=== PATIENT | female | born 1950 | race Caucasian/White ===

== ENCOUNTER 2020-09-08 10:01 | Outpatient (REF) | payer MEDICARE, MEDICAID, SELFPAY | END 2020-09-08 10:02 | disposition home or self-care (01) | LOC: HO.LAB 10:01 | PROVIDERS: Visit Provider Nurse Practitioner Family | DX: R19.7 Diarrhea, unspecified (principal); Z20.822 Contact with and (suspected) exposure to COVID-19 | CPT/HCPCS: 36415; U0003 ==

== ENCOUNTER 2020-10-20 09:06 | Outpatient (REF) | payer MEDICARE, MEDICAID, SELFPAY | END 2020-10-20 09:07 | disposition home or self-care (01) | LOC: HO.HMGCLDS 09:06 | PROVIDERS: PCP Internal Medicine; Visit Provider Internal Medicine | DX: Z20.822 Contact with and (suspected) exposure to COVID-19 (principal) | CPT/HCPCS: 36415; C9803; U0003; U0005 ==

== ENCOUNTER 2020-11-18 07:05 | Outpatient (REF) | payer MEDICARE, MEDICAID, SELFPAY ==
[2020-11-18 11:21] LABS: Hemoglobin 12.2 g/dl (12.0-16.0); Mean Corpuscular HGB Conc 31.3 g/dl (31.0-35.0); Mean Corpuscular Hemoglobin 28.8 pg (27.0-33.0); Mean Corpuscular Volume 92.2 fL (80-98); Mean Platelet Volume 10.3 fL (9.4-12.3); Platelet Count 341 X10*3/uL (160-400); Red Blood Count 4.23 X10*6/uL (4.20-5.50); Red Cell Distribution Width 14.9 % (11.0-16.0); White Blood Count 5.6 X10*3/uL (4.8-10.8)
[2020-11-18 11:41] LABS: Estimated Average Glucose 111 mg/dL; Hemoglobin A1c % 5.5 %
[2020-11-18 12:04] LABS: Alanine Aminotransferase 13 U/L (0-31); Albumin Level 4.5 g/dL (3.5-5.0); Alkaline Phosphatase 57 U/L (39-117); Anion Gap 13 (12-20); Aspartate Amino Transferase 19 U/L (5-31); Bilirubin Total 0.5 mg/dL (0.0-1.0); Blood Urea Nitrogen 16 mg/dL (9-16); Calcium 9.3 mg/dL (8.4-10.2); Carbon Dioxide 29 mmol/L (22-29); Chloride 101 mmol/L (96-108); Cholesterol 190 mg/dL; Estimated Glomerular Filt Rate > 60; Glucose Fasting 104 mg/dL (60-99); HDL Cholesterol 57 mg/dL; LDL Cholesterol Calculated 96 mg/dl; Potassium 4.3 mmol/L (3.3-5.1); Sodium 139 mmol/L (135-145); Total Protein 7.6 g/dL (6.5-8.0); Triglycerides 186 mg/dL
[2020-11-18 12:05] LABS: TSH reflex Free T4 2.23 uIU/mL (0.32-4.0)
[2020-11-18 12:19] LABS: Creatinine Urine 19.27 mg/dL; Microalbum/Creatinine Ratio Ur 51.8 ug/mg cr
[2020-11-18 12:23] LABS: Phenytoin Dilantin 16.9 ug/mL (10.0-20.0)
== END 2020-11-18 07:06 | disposition home or self-care (01) ==
LOC: HO.HMGCLDS 07:05
PROVIDERS: PCP Internal Medicine; Visit Provider Internal Medicine
DX: E11.9 Type 2 diabetes mellitus without complications (principal); E78.5 Hyperlipidemia, unspecified; F32.9 Major depressive disorder, single episode, unspecified; I10 Essential (primary) hypertension
CPT/HCPCS: 36415; 80053; 80061; 80185; 82043; 83036; 84443; 85027

== ENCOUNTER 2020-11-20 16:24 | Emergency (ER) | payer MEDICARE, MEDICAID, SELFPAY ==
--- NOTE | ~2020-11-20 | CT_ITS ---
EXAMINATION: CT HEAD WITHOUT CONTRAST CT CERVICAL SPINE WITHOUT CONTRAST CLINICAL INFORMATION: Fall COMPARISON: 05/05/2020 redemonstrated compatible with chronic white matter small vessel ischemic disease. TECHNIQUE: Multidetector CT imaging of the head and cervical spine was performed without the use of intravenous contrast. Multiplanar reformats are reviewed. This CT examination was performed using dose optimization techniques as appropriate, variously including the following: *Automated exposure control *Adjustment of mA and/or kV according to patient size (this includes techniques or standardized protocols for targeted exams where dose is matched to indication/reason for exam; i.e. extremities or head) *Use of iterative reconstruction technique DLP: 2064 mGy-cm. FINDINGS: There is no evidence of acute intracranial hemorrhage or territorial infarction. No abnormal mass effect or midline shift is seen. Orte[place] to white matter differentiation is well preserved. No extra-axial fluid collections are identified. The ventricles are normal in size. Patchy subcortical and periventricular white matter low-attenuation changes The osseous structures and soft tissues are normal. The mastoid air cells and visualized portions of the paranasal sinuses are well-aerated. Atlantooccipital alignment is maintained. The vertebral bodies and posterior elements align normally. No acute fracture or subluxation. Vertebral body heights are preserved. Bulky bridging osteophytes present throughout the cervical spine anteriorly from C3 inferiorly. There is ossification of the posterior longitudinal ligament versus bridging osteophytes posteriorly at C5-C6 and T1-T2. 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 The paraspinal soft tissues are unremarkable. The imaged lung apices are clear CT/CT cervical spine wo con IMPRESSION: No acute intracranial pathology. No cervical spine fracture or malalignment.
--- NOTE | ~2020-11-20 | CT_ITS ---
EXAMINATION: CT THORACIC SPINE WITHOUT CONTRAST CT LUMBAR SPINE WITHOUT CONTRAST CLINICAL INFORMATION: Pain following a fall. COMPARISON: CT abdomen/pelvis dated 05/14/2019. TECHNIQUE: Contiguous axial CT images of the thoracic spine were obtained without contrast. Contiguous axial CT images of the lumbar spine were obtained without contrast. Sagittal and coronal reformats were provided and reviewed. This CT examination was performed using dose optimization techniques as appropriate, variously including the following: *Automated exposure control. *Adjustment of mA and/or kV according to patient size (this includes techniques or standardized protocols for targeted exams where dose is matched to indication/reason for exam; i.e. extremities or head). *Use of iterative reconstruction technique. TOTAL DLP: 2064 mGy-cm FINDINGS: THORACIC SPINE: No acute fracture or subluxation. The normal thoracic kyphosis is maintained. No loss of vertebral body height. Mild multilevel loss of intervertebral disc height. Diffuse anterior bridging endplate osteophytes throughout the thoracic spine. Findings can be seen in the setting of diffuse idiopathic skeletal hyperostosis. No concerning lytic or blastic osseous lesion. No significant central canal or neural foraminal stenosis. Within the left upper lobe, there is a noncalcified 0.3 cm ovoid pulmonary nodule. Otherwise, the visualized lungs are clear. Partially visualized left upper pole renal stones. Status post cholecystectomy. No abnormal soft tissue mass or fluid collection. LUMBAR SPINE: No acute fracture or subluxation. No loss of vertebral body height. No significant loss of intervertebral disc height. Multilevel endplate osteophytes with bilateral facet arthropathy, similar when compared to the prior CT abdomen/pelvis. No concerning lytic or blastic osseous lesion. Calcification within the L5-S1 intervertebral disc. Multiple bilateral renal stones measuring up to 0.5 cm within the posterior pole of the right kidney. Atherosclerotic calcifications. Prominently distended urinary bladder. Small posterior central disc protrusion at L4-L5 without significant central canal or neural foraminal stenosis. Small disc osteophyte complex at L5-S1 without significant central canal or neural foraminal stenosis. CT/CT thoracic spine wo con IMPRESSION: THORACIC SPINE: No acute fracture or subluxation. Mild multilevel degenerative disc disease with diffuse bridging endplate osteophytes, which can be seen in the setting of diffuse idiopathic skeletal hyperostosis. Left upper lobe 0.3 cm ovoid, benign-appearing pulmonary nodule. No routine follow up recommended. LUMBAR SPINE: No acute fracture or subluxation. Minimal multilevel degenerative disc disease and bilateral facet arthropathy.
[2020-11-20 16:56] VITALS: BP 156/82; PULSE 76; RESP 20; TEMP 36.8; O2SAT 95; BMI 26.4
--- NOTE | 2020-11-20 17:18 | ECG_ITS ---
Test Reason : FALL Blood Pressure : / mmHG Vent. Rate : 064 BPM Atrial Rate : 064 BPM P-R Int : 234 ms QRS Dur : 094 ms QT Int : 416 ms P-R-T Axes : 037 -32 053 degrees QTc Int : 429 ms Sinus rhythm with 1st degree A-V block Left axis deviation Cannot rule out Anterior infarct (cited on or before 26-MAR-2020) Abnormal ECG When compared with ECG of 05-MAY-2020 15:00, No significant change was found Referred By: Aidan Dillon Electronically Signed By:LYNN OSEGUERA MD
[2020-11-20] MEDS: 0.9 % Sodium Chloride 1,000 ML 999 ML IV (18:38)
[2020-11-20 18:39] LABS: MANUAL DIFF FLAG NO
[2020-11-20 18:44] LABS: Basophils Percent Auto 0.3 % (0-2); Eosinophils Absolute Auto 0.2 X10*3/uL (0.0-0.4); Eosinophils Percent Auto 2.9 % (0-4); Hematocrit 34.5 % (37-47); Hemoglobin 11.2 g/dl (12.0-16.0); Imm Gran Abs Auto 0.02 X10*3/uL (0.00-0.03); Imm Gran Pct Auto 0.3 % (0.0-0.4); Lymphocytes Absolute Auto 1.8 X10*3/uL (1.2-4.9); Lymphocytes Percent Auto 27.4 % (20-40); Mean Corpuscular HGB Conc 32.5 g/dl (31.0-35.0); Mean Corpuscular Hemoglobin 28.9 pg (27.0-33.0); Mean Corpuscular Volume 89.1 fL (80-98); Mean Platelet Volume 9.6 fL (9.4-12.3); Monocytes Absolute Auto 0.7 X10*3/uL (0.1-1.2); Neutrophils Absolute Auto 3.7 X10*3/uL (2.0-8.3); Neutrophils Percent Auto 58.1 % (45-73); Platelet Count 310 X10*3/uL (160-400); Red Blood Count 3.87 X10*6/uL (4.20-5.50); Red Cell Distribution Width 14.5 % (11.0-16.0); White Blood Count 6.5 X10*3/uL (4.8-10.8)
[2020-11-20 18:49] LABS: Glucose, Whole Blood 107 mg/dL (60-115)
[2020-11-20 18:51] LABS: COVID-19 Test Negative (Negative); Glucose Urine UA NEG (NEG); IDNOW Serial# 9DD0AD1C; Leukocyte Esterase Urine NEG (NEG); Nitrite Urine NEG (NEG); Specific Gravity - Urine <= 1.005 (1.005-1.025); Urine Blood NEG (NEG); Urine Ketones NEG (NEG); Urine Protein NEG (NEG-TRACE)
[2020-11-20 18:52] LABS: Appearance Urine CLEAR; Color Urine YELLOW
--- NOTE | 2020-11-20 19:09 | ED.FALL ---
HPI - Fall General Chief Complaint: Fall Stated Complaint: mechanical fall from standing, head/back pain Time Seen by Provider: 11/20/20 17:04 Source: EMS Mode of arrival: EMS Limitations: no limitations History of Present Illness HPI Narrative: 70-year-old female with pmhx as noted below including history of depression, hypertension, hyperlipidemia who presents via EMS complaint of slip and fall. She reports that she was in tight area and she was reaching for her Macrodantin she is on a kitchen counter which was room temperature and she lost her footing and slipped backwards hitting the back of her head and back on the table/ground. States having mid back pain as well as pain to the scalp where she hit on the ground. States she heard a big job but there was no LOC. MD complaint: fall Onset (ago): minute(s) Fall from: standing Fall witnessed: no Place fall occurred: home Loss of consciousness: none Prolonged down time: no Symptoms prior to fall: none Context: tripped/slipped Location of injury: head and back Severity: moderate Severity scale (1-10): 8 Quality: aching Associated symptoms (after fall): denies Related Data Home Medications Medication Instructions Recorded Confirmed blood sugar diagnostic #10 ea 08/30/20 11/16/20 cholecalciferol (vitamin D3) 25 25 mcg PO DAILY 08/30/20 11/16/20 mcg (1,000 unit) tablet fenofibrate micronized 200 mg 200 mg PO DAILY 08/30/20 11/16/20 capsule flu vacc [id number](65yr up)-PF 240 ml IM 08/30/20 11/16/20 mcg/0.7 mL intramuscular syringe gabapentin 100 mg capsule 100 mg PO TID 08/30/20 11/16/20 levothyroxine 100 mcg tablet 100 mcg PO DAILY 08/30/20 11/16/20 lorazepam 0.5 mg tablet 0.5 mg PO BID PRN 08/30/20 11/16/20 losartan 100 mg tablet 100 mg PO DAILY 08/30/20 11/16/20 metformin 500 mg tablet 500 mg PO DAILY 08/30/20 11/16/20 perphenazine 4 mg tablet 4 mg PO DAILY PRN 08/30/20 11/16/20 pravastatin 40 mg tablet 40 mg PO BEDTIME 08/30/20 11/16/20 topiramate 100 mg tablet mg PO 08/30/20 11/16/20 trazodone 150 mg tablet 150 mg PO BEDTIME PRN 08/30/20 11/16/20 varicella-zoster glycoE [id number] IM 08/30/20 11/16/20 adj(PF) 50 mcg/0.5 mL IM sandra rodriguez lorazepam 1 mg tablet 1 mg PO BEDTIME 09/08/20 11/16/20 perphenazine 16 mg tablet 16 mg PO TID 09/08/20 11/16/20 Previous Rx's Medication Instructions Recorded triamcinolone acetonide 0.1 % 1 appl TOPICAL DAILY #80 g 08/30/20 topical cream lactulose 10 gram/15 mL oral 10 g PO DAILY #500 ml 09/09/20 solution blood-glucose meter #1 ea 09/15/20 lancets 28 gauge #100 ea 09/17/20 loratadine 10 mg tablet 10 mg PO DAILY #90 tab 09/21/20 sucralfate 1 gram tablet 1 g PO TID #90 tab 09/21/20 lancets 28 gauge #100 ea 09/28/20 multivitamin 1 tab PO DAILY #90 tab 11/15/20 olanzapine 7.5 mg tablet 7.5 mg PO BEDTIME #90 tab 11/15/20 omeprazole 40 mg capsule,delayed 40 mg PO DAILY #90 cap 11/15/20 release oxybutynin chloride 15 mg 30 mg PO DAILY #180 tab 11/15/20 tablet,extended release 24 hr phenytoin sodium extended 100 mg 200 mg PO BID #360 cap 11/15/20 capsule acetaminophen [Aphen] 650 mg PO Q6H PRN #20 tab 11/20/20 lidocaine 1 patch TOPICAL Q24H PRN #15 ea 11/20/20 Allergies Allergy/AdvReac Type Severity Reaction Status Date / Time cyclobenzaprine Allergy Unknown UNKNOWN Unverified 05/20/20 15:47 [From FLEXERIL] [facility] Carbonate Allergy Unknown unknown Unverified 11/03/20 08:48 quinine [Quinine] Allergy Unknown UNSURE Unverified 05/20/20 15:47 risperidone [From RISPERDAL] Allergy Unknown UNKNOWN Unverified 05/20/20 15:47 Sulfa (Sulfonamide Allergy Unknown UNKNOWN Unverified 05/20/20 15:47 Antibiotics) [SULFA (SULFONAMIDE ANTIBIOTICS)] carbamazepine [From Tegretol] AdvReac Unknown INCREASE Verified 11/03/20 08:48 WBC/DIARRHEA clozapine [From Clozaril] AdvReac Unknown FEVER Unverified 05/20/20 15:47 divalproex sodium AdvReac Unknown DIARRHEA Verified 11/03/20 08:48 [From Depakote] lithium [[facility]] AdvReac Unknown DIARRHEA/TO Verified 11/03/20 08:48 XIC quetiapine [From Seroquel] AdvReac Unknown INCREASE Unverified 05/20/20 15:47 HALLUCINATION Review of Systems Review of Systems: Constitutional: No Weight loss, No Fever, No Chills, No Night Sweats, No Fatigue, No Malaise ENT/Mouth: No Hearing loss, No Ear Pain, No Nasal Congestion, No Sinus Pain, No Hoarseness, No sore throat, No Rhinorrhea, No Swallowing Difficulty Eyes: No Eye Pain, No Swelling, No Redness, No Foreign Body, No Discharge, No Vision Changes Cardiovascular: No Chest Pain, No SOB, No Dyspnea on Exertion, No Orthopnea, No Edema, No Palpitations Respiratory: No Cough, No Sputum, No Wheezing, No Dyspnea Gastrointestinal: No Nausea, No Vomiting, No Diarrhea, No Constipation, No abdominal Pain, No Hematochezia, No Melena Genitourinary: No Dysuria, No Urinary Frequency, No Hematuria, No Urinary Incontinence, No Urgency, No Flank Pain, No Urinary Flow Changes, No Hesitancy Musculoskeletal: No joint pain, No Myalgias, No Joint Swelling , as noted per HPI Skin: No Skin Lesions, No rash Neuro: No Weakness, No Numbness, No Paresthesias, No Loss of Consciousness, No Dizziness Psych: No Social Issues Heme/Lymph: No Bruising, No Bleeding,No Lymphadenopathy Endocrine: No Polyuria, No Polydipsia, No Temperature Intolerance Yes all other systems are reviewed and are negative [facility] Past Medical History Medical History Depression HTN (hypertension) Hyperlipidemia Rash Surgical History History of bladder suspension procedure Hx of cholecystectomy Family History Family History (Updated 11/03/20 @ 08:55 by Deyanira Deleon, RMA, SENIOR CHEMICAL PROCESS ENGINEER) Father Lung cancer Mother Lung cancer Daughter Uterine cancer Daughter Skin cancer Brother Lung cancer Social History Social History (Updated 11/16/20 @ 12:31 by NATI Lua) Alcohol intake: never Smoking Status: Never smoker Advance Directives: No Advance Directives Information Provided: Yes Physical Exam Vital Signs: Vital Signs: Last Vital Signs Temp 98.3 F 11/20/20 16:56 Pulse 76 11/20/20 16:56 Resp 20 11/20/20 16:56 BP 156/82 H 11/20/20 16:56 Pulse Ox 95 11/20/20 16:56 Body Mass Index 26.4 Reviewed Const: Other: In cervical collar General: cooperative Nutritional Appearance: average body habitus Orientation/consciousness: patient oriented x3 HENMT: Head: Yes normal to inspection Ears: hearing grossly normal bilaterally Eyes: General: appearance normal, both eyes and all related structures Visual Mccoy: normal visual mccoy by confrontation Neck: Other: Cervical in place Thyroid: Thyroid normal and asymmetrical Chest: Chest palpation & inspection: normal inspection of the chest Resp: Effort & Inspection: normal respiratory effort Auscultation: clear to auscultation bilaterally Cardio: Jugular venous distension: no JVD Rhythm: regular rhythm Heart sounds: S1 normal heart sound present and S2 normal heart sound present GI: Inspection: Yes normal to inspection Percussion: Yes normal to percussion Auscultation: normal bowel sounds Back/Spine/Pelvis: Back: back tenderness (Diffusely in over the mid thoracic area no crepitus or ecchymosis ) Skin: General skin exam: no rashes or lesions noted Neuro: General: patient oriented x3 Extrem: General: Yes normal to inspection Course Course Course Narrative: AP of mechanical fall scalp contusion/cervical strain and back contusion. Imaging of her head, cervical/thoracic/lumbar spine without acute findings. She initially declined pain medicine and was hesitant to move however after Tylenol and lidocaine patch she felt much better and ambulated with steady gait. She was able to get up by herself and dress herself. Home safety/appropriate devices that he using her walker reviewed her. At this point she does not feel she needs to stay here for STR placements as she has been in the past. MDM - Fall Medical Records Attestation: I reviewed the patient's medical records. Lab Data Attestation: I reviewed the patient's lab results. Result diagrams: 11/20/20 18:30 11/20/20 18:30 Labs: Lab Results 11/20/20 11/20/20 11/20/20 Range/Units 18:30 18:30 18:30 WBC 6.5 (4.8-10.8) X10*3/uL RBC 3.87 L (4.20-5.50) X10*6/uL Hgb 11.2 L (12.0-16.0) g/dl Hct 34.5 L (37-47) % MCV 89.1 (80-98) fL MCH 28.9 (27.0-33.0) pg MCHC 32.5 (31.0-35.0) g/dl RDW 14.5 (11.0-16.0) % Plt Count 310 (160-400) X10*3/uL MPV 9.6 (9.4-12.3) fL Immature Gran % (Auto) 0.3 (0.0-0.4) % Neut % (Auto) 58.1 (45-73) % Lymph % (Auto) 27.4 (20-40) % [place] % (Auto) 11.0 (2-11) % Eos % (Auto) 2.9 (0-4) % Baso % (Auto) 0.3 (0-2) % Lymph # (Auto) 1.8 (1.2-4.9) X10*3/uL [place] # (Auto) 0.7 (0.1-1.2) X10*3/uL Eos # (Auto) 0.2 (0.0-0.4) X10*3/uL Baso # (Auto) 0.0 (0.0-0.2) X10*3/uL Abs Immat Gran (auto) 0.02 (0.00-0.03) X10*3/uL Absolute Neuts (auto) 3.7 (2.0-8.3) X10*3/uL Absolute Nucleated RBC 0.000 (0.0-0.012) X10*3/uL Nucleated RBC % (auto) 0.0 (0.0-0.2) /100WBC PT 13.1 H (10.8-13.0) SEC INR 1.1 (0.9-1.1) APTT 40.6 H (24.1-38.0) SEC Sodium 136 (135-145) mmol/L Potassium 3.5 (3.3-5.1) mmol/L Chloride 100 (96-108) mmol/L Carbon Dioxide 26 (22-29) mmol/L Anion Gap 14 (12-20) BUN 13 (9-16) mg/dL Creatinine 0.71 (0.5-1.4) mg/dL Estim Creat Clear Calc 61.1 Estimated GFR > 60 POC Glucose (60-115) mg/dL Random Glucose 112 (60-115) mg/dL Calcium 9.2 (8.4-10.2) mg/dL Total Bilirubin 0.3 (0.0-1.0) mg/dL AST 22 (5-31) U/L ALT 13 (0-31) U/L Alkaline Phosphatase 54 (39-117) U/L Total Protein 7.3 (6.5-8.0) g/dL Albumin 4.3 (3.5-5.0) g/dL Urine Color Urine Appearance Urine pH (5.0-8.0) Ur Specific [place] (1.005-1.025) Urine Protein (NEG-TRACE) MG/DL Urine Glucose (UA) (NEG) MG/DL Urine Ketones (NEG) MG/DL Urine Blood (NEG) Urine Nitrite (NEG) Ur Leukocyte Esterase (NEG) Urine RBC (0) /HPF Urine WBC (0-4) /HPF Ur Squamous Epith Cells /LPF Ur Renal Epithelial Cell /LPF Urine Bacteria /LPF COVID-19 ([facility]) (Negative) COVID-19 Clin Com 11/20/20 11/20/20 11/20/20 Range/Units 18:30 18:30 18:44 WBC (4.8-10.8) X10*3/uL RBC (4.20-5.50) X10*6/uL Hgb (12.0-16.0) g/dl Hct (37-47) % MCV (80-98) fL MCH (27.0-33.0) pg MCHC (31.0-35.0) g/dl RDW (11.0-16.0) % Plt Count (160-400) X10*3/uL MPV (9.4-12.3) fL Immature Gran % (Auto) (0.0-0.4) % Neut % (Auto) (45-73) % Lymph % (Auto) (20-40) % [place] % (Auto) (2-11) % Eos % (Auto) (0-4) % Baso % (Auto) (0-2) % Lymph # (Auto) (1.2-4.9) X10*3/uL [place] # (Auto) (0.1-1.2) X10*3/uL Eos # (Auto) (0.0-0.4) X10*3/uL Baso # (Auto) (0.0-0.2) X10*3/uL Abs Immat Gran (auto) (0.00-0.03) X10*3/uL Absolute Neuts (auto) (2.0-8.3) X10*3/uL Absolute Nucleated RBC (0.0-0.012) X10*3/uL Nucleated RBC % (auto) (0.0-0.2) /100WBC PT (10.8-13.0) SEC INR (0.9-1.1) APTT (24.1-38.0) SEC Sodium (135-145) mmol/L Potassium (3.3-5.1) mmol/L Chloride (96-108) mmol/L Carbon Dioxide (22-29) mmol/L Anion Gap (12-20) BUN (9-16) mg/dL Creatinine (0.5-1.4) mg/dL Estim Creat Clear Calc Estimated GFR POC Glucose 107 (60-115) mg/dL Random Glucose (60-115) mg/dL Calcium (8.4-10.2) mg/dL Total Bilirubin (0.0-1.0) mg/dL AST (5-31) U/L ALT (0-31) U/L Alkaline Phosphatase (39-117) U/L Total Protein (6.5-8.0) g/dL Albumin (3.5-5.0) g/dL Urine Color YELLOW Urine Appearance CLEAR Urine pH 7.0 (5.0-8.0) Ur Specific [place] <= 1.005 (1.005-1.025) Urine Protein NEG (NEG-TRACE) MG/DL Urine Glucose (UA) NEG (NEG) MG/DL Urine Ketones NEG (NEG) MG/DL Urine Blood NEG (NEG) Urine Nitrite NEG (NEG) Ur Leukocyte Esterase NEG (NEG) Urine RBC 0-2 (0) /HPF Urine WBC 0-2 (0-4) /HPF Ur Squamous Epith Cells TRACE /LPF Ur Renal Epithelial Cell TRACE /LPF Urine Bacteria NONE /LPF COVID-19 ([facility]) Negative (Negative) COVID-19 Clin Com See Note Imaging Data Head/cervical spine CT: Radiologist's impression: [facility] [place], [place] [id number] Scan ReportSigned Patient: Sherrell Vaughn MMR#: [id number]: 8Acct:[id number]/Sex: 70 / FADM Date: 11/20/20Loc: EDAttending Dr: Ordering Physician: Aidan Dillon NP Date of Service: 11/20/20 Procedure(s): CT cervical spine wo con Accession Number(s): [id number] cc: Aidan Dillon OUTSIDE PROPERTY AGENT~ EXAMINATION: CT HEAD WITHOUT CONTRAST CT CERVICAL SPINE WITHOUT CONTRAST CLINICAL INFORMATION: Fall COMPARISON: 05/05/2020 redemonstrated compatible with chronic white matter small vessel ischemic disease. TECHNIQUE: Multidetector CT imaging of the head and cervical spine was performed without the use of intravenous contrast. Multiplanar reformats are reviewed. This CT examination was performed using dose optimization techniques as appropriate, variously including the following: *Automated exposure control *Adjustment of mA and/or kV according to patient size (this includes techniques or standardized protocols for targeted exams where dose is matched to indication/reason for exam; i.e. extremities or head) *Use of iterative reconstruction technique DLP: 2064 mGy-cm. FINDINGS: There is no evidence of acute intracranial hemorrhage or territorial infarction. No abnormal mass effect or midline shift is seen. Orte[place] to white matter differentiation is well preserved. No extra-axial fluid collections are identified. The ventricles are normal in size. Patchy subcortical and periventricular white matter low-attenuation changes The osseous structures and soft tissues are normal. The mastoid air cells and visualized portions of the paranasal sinuses are well-aerated. Atlantooccipital alignment is maintained. The vertebral bodies and posterior elements align normally. No acute fracture or subluxation. Vertebral body heights are preserved. Bulky bridging osteophytes present throughout the cervical spine anteriorly from C3 inferiorly. There is ossification of the posterior longitudinal ligament versus bridging osteophytes posteriorly at C5-C6 and T1-T2. 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 The paraspinal soft tissues are unremarkable. The imaged lung apices are clear CT/CT cervical spine wo con IMPRESSION: No acute intracranial pathology. No cervical spine fracture or malalignment. Dictated By:LACIE MENA MDSigned By:<Electronically signed by LACIE MENA MD in [place]>11/20/20 1840 DD/ 1717TD/TT: [employer]: JOSEPH Thoracic/lumbar spine CT: Radiologist's impression: [address] [id number] Scan ReportSigned Patient: Sherrell Vaughn MMR#: [id number]: 8Acct:[id number]/Sex: 70 / FADM Date: 11/20/20Loc: HO.EDAttending Dr: Ordering Physician: Aidan Dillon NP Date of Service: 11/20/20 Procedure(s): CT lumbar spine wo con Accession Number(s): [id number] cc: Aidan Dillon NP~ EXAMINATION: CT THORACIC SPINE WITHOUT CONTRAST CT LUMBAR SPINE WITHOUT CONTRAST CLINICAL INFORMATION: Pain following a fall. COMPARISON: CT abdomen/pelvis dated 05/14/2019. TECHNIQUE: Contiguous axial CT images of the thoracic spine were obtained without contrast. Contiguous axial CT images of the lumbar spine were obtained without contrast. Sagittal and coronal reformats were provided and reviewed. This CT examination was performed using dose optimization techniques as appropriate, variously including the following: *Automated exposure control. *Adjustment of mA and/or kV according to patient size (this includes techniques or standardized protocols for targeted exams where dose is matched to indication/reason for exam; i.e. extremities or head). *Use of iterative reconstruction technique. TOTAL DLP: 2064 mGy-cm FINDINGS: THORACIC SPINE: No acute fracture or subluxation. The normal thoracic kyphosis is maintained. No loss of vertebral body height. Mild multilevel loss of intervertebral disc height. Diffuse anterior bridging endplate osteophytes throughout the thoracic spine. Findings can be seen in the setting of diffuse idiopathic skeletal hyperostosis. No concerning lytic or blastic osseous lesion. No significant central canal or neural foraminal stenosis. Within the left upper lobe, there is a noncalcified 0.3 cm ovoid pulmonary nodule. Otherwise, the visualized lungs are clear. Partially visualized left upper pole renal stones. Status post cholecystectomy. No abnormal soft tissue mass or fluid collection. LUMBAR SPINE: No acute fracture or subluxation. No loss of vertebral body height. No significant loss of intervertebral disc height. Multilevel endplate osteophytes with bilateral facet arthropathy, similar when compared to the prior CT abdomen/pelvis. No concerning lytic or blastic osseous lesion. Calcification within the L5-S1 intervertebral disc. Multiple bilateral renal stones measuring up to 0.5 cm within the posterior pole of the right kidney. Atherosclerotic calcifications. Prominently distended urinary bladder. Small posterior central disc protrusion at L4-L5 without significant central canal or neural foraminal stenosis. Small disc osteophyte complex at L5-S1 without significant central canal or neural foraminal stenosis. CT/CT lumbar spine wo con IMPRESSION: THORACIC SPINE: No acute fracture or subluxation. Mild multilevel degenerative disc disease with diffuse bridging endplate osteophytes, which can be seen in the setting of diffuse idiopathic skeletal hyperostosis. Left upper lobe 0.3 cm ovoid, benign-appearing pulmonary nodule. No routine follow up recommended. LUMBAR SPINE: No acute fracture or subluxation. Minimal multilevel degenerative disc disease and bilateral facet arthropathy. Dictated By:MURIEL MERINO MDSigned By:<Electronically signed by MURIEL MERINO MD in OV>11/20/206 DD/ 1722TD/TT: [employer] Handlers: Discharge Plan Discharge Clinical Impression: Fall, Contusion, Back strain Patient Disposition: Home, Self-Care Instructions: Muscle Strain (ED), Fall Prevention for Older Adults (ED), Contusion in Adults (ED) Additional Instructions: Appropriate safety devices at home Return if any concerns or worsening symptoms Otherwise follow up with her primary care doctor as planned Thank you Prescriptions: New lidocaine 4 % adhesive patch,medicated 1 patch topical Q24H PRN (Reason: pain) Qty: 15 RF: 0 acetaminophen [Aphen] 325 mg tablet 650 mg PO Q6H PRN (Reason: pain) Qty: 20 RF: 0 No Action lactulose 10 gram/15 mL solution 10 g PO DAILY Qty: 500 RF: 3 (DME) blood-glucose meter [FreeStyle Lite Meter] Kit See Rx Instructions .ROUTE .MEDSUPPLY Qty: 1 RF: 0 (DME) lancets 28 gauge misc See Rx Instructions ea topical QID Qty: 100 RF: 4 loratadine 10 mg tablet 10 mg PO DAILY Qty: 90 RF: 0 sucralfate 1 gram tablet 1 g PO TID Qty: 90 RF: 2 (DME) lancets [FreeStyle Lancets] 28 gauge misc See Rx Instructions .ROUTE .MEDSUPPLY Qty: 100 RF: 4 olanzapine 7.5 mg tablet 7.5 mg PO BEDTIME Qty: 90 RF: 3 phenytoin sodium extended 100 mg capsule 200 mg PO BID Qty: 360 RF: 3 oxybutynin chloride 15 mg tablet extended release 24 hr 30 mg PO DAILY Qty: 180 RF: 3 omeprazole 40 mg capsule,delayed release(DR/EC) 40 mg PO DAILY Qty: 90 RF: 3 multivitamin Tablet 1 tab PO DAILY Qty: 90 RF: 3 levothyroxine 100 mcg tablet 100 mcg PO DAILY RF: 0 lorazepam 0.5 mg tablet 0.5 mg PO BID PRNRF: 0 cholecalciferol (vitamin D3) 25 mcg (1,000 unit) tablet 25 mcg PO DAILY RF: 0 losartan 100 mg tablet 100 mg PO DAILY RF: 0 topiramate 100 mg tablet PO RF: 0 gabapentin 100 mg capsule 100 mg PO TID RF: 0 trazodone 150 mg tablet 150 mg PO BEDTIME PRN (Reason: insomnia) RF: 0 perphenazine 4 mg tablet 4 mg PO DAILY PRNRF: 0 Shingrix (PF) 50 mcg/0.5 mL suspension for reconstitution IM RF: 0 pravastatin 40 mg tablet 40 mg PO BEDTIME RF: 0 metformin 500 mg tablet 500 mg PO DAILY RF: 0 Fluzone HighDose Quad 20-21 PF 240 mcg/0.7 mL syringe IM RF: 0 (DME) FreeStyle Lite Strips Strip See Rx Instructions ea Not Applicable DAILY Qty: 10 RF: 0 fenofibrate micronized 200 mg capsule 200 mg PO DAILY RF: 0 triamcinolone acetonide 0.1 % cream 1 appl topical DAILY Qty: 80 RF: 2 perphenazine 16 mg tablet 16 mg PO TID RF: 0 lorazepam 1 mg tablet 1 mg PO BEDTIME RF: 0 Referrals: Carmelina Obregon MD [Primary Care Provider] - 1 week
[2020-11-20 19:22] LABS: Alanine Aminotransferase 13 U/L (0-31); Albumin Level 4.3 g/dL (3.5-5.0); Alkaline Phosphatase 54 U/L (39-117); Anion Gap 14 (12-20); Aspartate Amino Transferase 22 U/L (5-31); Bilirubin Total 0.3 mg/dL (0.0-1.0); Blood Urea Nitrogen 13 mg/dL (9-16); Calcium 9.2 mg/dL (8.4-10.2); Carbon Dioxide 26 mmol/L (22-29); Chloride 100 mmol/L (96-108); Creatinine Clr Calc Pharmacy 61.1; Estimated Glomerular Filt Rate > 60; Glucose Random 112 mg/dL (60-115); Potassium 3.5 mmol/L (3.3-5.1); Sodium 136 mmol/L (135-145); Total Protein 7.3 g/dL (6.5-8.0)
[2020-11-20 19:40] LABS: INTERNATIONAL NORM RATIO 1.1 (0.9-1.1); Prothrombin Time 13.1 SEC (10.8-13.0)
[2020-11-20 19:42] LABS: Partial Thromboplastin Time 40.6 SEC (24.1-38.0)
[2020-11-20 19:50] LABS: RBC Urine 0-2 /HPF (0); Renal Epithelial Cells Urine TRACE /LPF; Squamous Epithelial Cell Urine TRACE /LPF; WBC Urine 0-2 /HPF (0-4)
[2020-11-20] MEDS: Lidocaine 4 % Patch ADH..PATCH 1 PATCH TRANSDERMA (20:01)
[2020-11-20] MEDS: Acetaminophen 325 MG TABLET 650 MG PO (20:02)
[2020-11-20 21:40] VITALS: BP 158/82; PULSE 76; RESP 18; O2SAT 97
== END 2020-11-20 21:41 | disposition home or self-care (01) ==
PROVIDERS: Nurse Practitioner Primary Care; Emergency Provider Internal Medicine; PCP Internal Medicine
DX: S39.012A Strain of muscle, fascia and tendon of lower back, initial encounter (principal); S30.0XXA Contusion of lower back and pelvis, initial encounter; M54.6 Pain in thoracic spine; M54.2 Cervicalgia; G44.309 Post-traumatic headache, unspecified, not intractable; W19.XXXA Unspecified fall, initial encounter; Y93.9 Activity, unspecified; Y92.000 Kitchen of unspecified non-institutional (private) residence as the place of occurrence of the external cause; Y99.9 Unspecified external cause status; Z20.822 Contact with and (suspected) exposure to COVID-19; Z79.899 Other long term (current) drug therapy
CPT/HCPCS: 36415; 70450; 72125; 72128; 72131; 80053; 81001; 82947; 85025; 85610; 85730; 87635; 93005; 96365; 96375; 99284

== ENCOUNTER 2021-02-19 13:54 | Emergency (ER) | payer MEDICARE, MEDICAID, SELFPAY ==
--- NOTE | ~2021-02-19 | CT_ITS ---
EXAMINATION: CT HEAD WITHOUT CONTRAST CLINICAL INFORMATION: Acute dizziness COMPARISON: 11/20/2020 TECHNIQUE: Contiguous axial imaging was performed from the skull base to vertex without intravenous administration of contrast. This CT examination was performed using dose optimization techniques as appropriate, variously including the following: *Automated exposure control *Adjustment of mA and/or kV according to patient size (this includes techniques or standardized protocols for targeted exams where dose is matched to indication/reason for exam; i.e. extremities or head) *Use of iterative reconstruction technique DLP: 690 mGy-cm FINDINGS: There is no evidence of acute intracranial hemorrhage or territorial infarction. No abnormal mass effect or midline shift is seen. [place] to white matter differentiation is well preserved. No extra-axial fluid collections are identified. The ventricles are normal in size. There is no abnormal attenuation within the brain parenchyma. Mild periventricular and deep white matter hypodensities consistent with mild microangiopathy. The osseous structures and soft tissues are normal. The mastoid air cells and visualized portions of the paranasal sinuses are well aerated. CT/CT head/brain wo con IMPRESSION: No acute intracranial pathology.
[2021-02-19 14:46] VITALS: BP 125/77; PULSE 74; RESP 16; TEMP 37; O2SAT 95; BMI 26.4
--- NOTE | 2021-02-19 16:28 | ED_ITS ---
HPI - Dizziness General Chief Complaint: Dizziness Stated Complaint: Dizziness Time Seen by Provider: 02/19/21 16:28 Source: patient Mode of arrival: ambulatory Limitations: no limitations History of Present Illness HPI Narrative: Patient history of seizures hypertension diabetes woke up in the morning with sudden onset of vertigo patient feel everything spinning especially when she turns her head to left side unsteady gait no nausea no vomiting had similar episode years ago. No headache no palpitation no chest pain no syncope MD elicited complaint: dizziness Related Data Home Medications Medication Instructions Recorded Confirmed blood sugar diagnostic #10 ea 08/30/20 11/16/20 cholecalciferol (vitamin D3) 25 25 mcg PO DAILY 08/30/20 11/16/20 mcg (1,000 unit) tablet flu vacc [id number](65yr up)-PF 240 ml IM 08/30/20 11/16/20 mcg/0.7 mL intramuscular syringe gabapentin 100 mg capsule 100 mg PO TID 08/30/20 11/16/20 lorazepam 0.5 mg tablet 0.5 mg PO BID PRN 08/30/20 11/16/20 metformin 500 mg tablet 500 mg PO DAILY 08/30/20 11/16/20 perphenazine 4 mg tablet 4 mg PO DAILY PRN 08/30/20 11/16/20 pravastatin 40 mg tablet 40 mg PO BEDTIME 08/30/20 11/16/20 trazodone 150 mg tablet 150 mg PO BEDTIME PRN 08/30/20 11/16/20 varicella-zoster glycoE [id number] IM 08/30/20 11/16/20 adj(PF) 50 mcg/0.5 mL IM susp, kit lorazepam 1 mg tablet 1 mg PO BEDTIME 09/08/20 11/16/20 perphenazine 16 mg tablet 16 mg PO TID 09/08/20 11/16/20 Previous Rx's Medication Instructions Recorded triamcinolone acetonide 0.1 % 1 appl TOPICAL DAILY #80 g 08/30/20 topical cream lactulose 10 gram/15 mL oral 10 g PO DAILY #500 ml 09/09/20 solution blood-glucose meter #1 ea 09/15/20 lancets 28 gauge #100 ea 09/17/20 lancets 28 gauge #100 ea 09/28/20 multivitamin 1 tab PO DAILY #90 tab 03/15/21 olanzapine 7.5 mg tablet 7.5 mg PO BEDTIME #90 tab 11/15/20 omeprazole 40 mg capsule,delayed 40 mg PO DAILY #90 cap 11/15/20 release oxybutynin chloride 15 mg 30 mg PO DAILY #180 tab 11/15/20 tablet,extended release 24 hr phenytoin sodium extended 100 mg 200 mg PO BID #360 cap 11/15/20 capsule acetaminophen [Aphen] 650 mg PO Q6H PRN #20 tab 11/20/20 lidocaine 1 patch TOPICAL Q24H PRN #15 ea 11/20/20 levothyroxine 100 mcg tablet 100 mcg PO DAILY #90 tab 11/22/20 loratadine 10 mg tablet 10 mg PO DAILY #90 tab 12/20/20 sucralfate 1 gram tablet 1 g PO TID #90 tab 12/23/20 fenofibrate micronized 200 mg 200 mg PO DAILY #90 cap 01/13/21 capsule losartan 100 mg tablet 100 mg PO DAILY #90 tab 02/04/21 topiramate 100 mg tablet 100 mg PO DAILY #90 tab 02/04/21 meclizine 12.5 mg PO TID PRN #20 tab 02/19/21 Allergies Allergy/AdvReac Type Severity Reaction Status Date / Time cyclobenzaprine Allergy Unknown UNKNOWN Unverified 05/20/20 15:47 [From FLEXERIL] [place] Carbonate Allergy Unknown unknown Unverified 11/03/20 08:48 quinine [Quinine] Allergy Unknown UNSURE Unverified 05/20/20 15:47 risperidone [From RISPERDAL] Allergy Unknown UNKNOWN Unverified 05/20/20 15:47 Sulfa (Sulfonamide Allergy Unknown UNKNOWN Unverified 05/20/20 15:47 Antibiotics) [SULFA (SULFONAMIDE ANTIBIOTICS)] carbamazepine [From Tegretol] AdvReac Unknown INCREASE Verified 11/03/20 08:48 WBC/DIARRHEA clozapine [From Clozaril] AdvReac Unknown FEVER Unverified 05/20/20 15:47 divalproex sodium AdvReac Unknown DIARRHEA Verified 11/03/20 08:48 [From Depakote] lithium [[place]] AdvReac Unknown DIARRHEA/TO Verified 11/03/20 08:48 XIC quetiapine [From Seroquel] AdvReac Unknown INCREASE Unverified 05/20/20 15:47 HALLUCINATION Review of Systems Review of Systems: Constitutional : No Weight loss, No Fever, No Chills ENT/Mouth : No sore throat, No Rhinorrhea Eyes: No Eye Pain, No Swelling Cardiovascular : No Chest Pain, no palpitations Respiratory : No Cough, No Sputum, no shortness of breath Gastrointestinal : no Nausea, No Vomiting, No Diarrhea, No abdominal Pain, no black stools Genitourinary : No Dysuria, No Urinary Frequency Musculoskeletal : No joint pain, No Myalgias, No Joint Swelling Skin : No Skin Lesions, No rash Neuro : No Weakness, No Numbness, ++ Dizziness, No Headache Psych : No Anxiety/Panic, No Depression Heme/Lymph: No Bruising, No Lymphadenopathy Endocrine : No Polyuria, No Polydipsia All other systems reviewed and are negative FORMERLY [facility], [facility] Past Medical History Medical History Depression HTN (hypertension) Hyperlipidemia Rash Surgical History History of bladder suspension procedure Hx of cholecystectomy Family History Family History Father Lung cancer Mother Lung cancer Daughter Uterine cancer Daughter Skin cancer Brother Lung cancer Social History Social History Alcohol intake: never Advance Directives: No Advance Directives Information Provided: Yes Physical Exam Vital Signs: Vital Signs: Last Vital Signs Temp 98.4 F 02/19/21 18:31 Pulse 79 02/19/21 19:53 Resp 17 02/19/21 19:53 BP 169/80 H 02/19/21 19:53 Pulse Ox 100 02/19/21 19:53 Body Mass Index 26.4 Appearance: Alert. Oriented X3. No acute distress. Eyes: PERRLA, + Nystagmus to L ENT: Pharynx normal. Oral Mucosa moist Neck: Normal inspection. Neck supple. CVS: Normal heart rate and rhythm. Pulses normal. Respiratory: No respiratory distress. Equal air entry bilateral, no wheezing/rales/rhonchi Abdomen: Soft and nontender. Bowel sounds are present, no mass palpable, no CVA tenderness Skin: Skin warm and dry. Normal skin color. Normal skin turgor. Extremities: No lower extremity edema. No calf tenderness Neuro: Oriented X 3. No motor deficit. No sensory deficit.No cerebellar signs , cranial nerves II-XII intact MDM - Dizziness MDM Narrative Medical decision making narrative: Patient with vertigo likely benign positional vertigo CT scan head negative Dilantin level is normal discharge patient on meclizine patient feeling much better ,now ambulatory Lab Data Attestation: I reviewed the patient's lab results. Result diagrams: 02/19/21 17:23 02/19/21 17:23 Labs: Lab Results 02/19/21 02/19/21 02/19/21 Range/Units 17:23 17:23 17:23 WBC 7.2 (4.8-10.8) X10*3/uL RBC 3.94 L (4.20-5.50) X10*6/uL Hgb 11.6 L (12.0-16.0) g/dl Hct 35.1 L (37-47) % MCV 89.1 (80-98) fL MCH 29.4 (27.0-33.0) pg MCHC 33.0 (31.0-35.0) g/dl RDW 12.8 (11.0-16.0) % Plt Count 308 (160-400) X10*3/uL MPV 9.5 (9.4-12.3) fL Immature Gran % (Auto) 0.1 (0.0-0.4) % Neut % (Auto) 50.2 (45-73) % Lymph % (Auto) 31.5 (20-40) % [place] % (Auto) 13.1 H (2-11) % Eos % (Auto) 4.7 H (0-4) % Baso % (Auto) 0.4 (0-2) % Lymph # (Auto) 2.3 (1.2-4.9) X10*3/uL [place] # (Auto) 0.9 (0.1-1.2) X10*3/uL Eos # (Auto) 0.3 (0.0-0.4) X10*3/uL Baso # (Auto) 0.0 (0.0-0.2) X10*3/uL Abs Immat Gran (auto) 0.01 (0.00-0.03) X10*3/uL Absolute Neuts (auto) 3.6 (2.0-8.3) X10*3/uL Absolute Nucleated RBC 0.000 (0.0-0.012) X10*3/uL Nucleated RBC % (auto) 0.0 (0.0-0.2) /100WBC Sodium 137 (135-145) mmol/L Potassium 4.8 D (3.3-5.1) mmol/L Chloride 103 (96-108) mmol/L Carbon Dioxide 24 (22-29) mmol/L Anion Gap 15 (12-20) BUN 17 H (9-16) mg/dL Creatinine 0.73 (0.5-1.4) mg/dL Estim Creat Clear Calc 59.4 Estimated GFR > 60 Random Glucose 86 (60-115) mg/dL Calcium 9.5 (8.4-10.2) mg/dL Phenytoin 18.2 (10.0-20.0) ug/mL Discharge Plan Discharge Clinical Impression: Benign paroxysmal positional vertigo Patient Disposition: Home, Self-Care Instructions: Benign Paroxysmal Positional Vertigo (ED) Additional Instructions: Cautions as advised Take medication as prescribed was severe dizziness Prescriptions: New meclizine 12.5 mg tablet 12.5 mg PO TID PRN (Reason: dizziness) Qty: 20 RF: 0 No Action lactulose 10 gram/15 mL solution 10 g PO DAILY Qty: 500 RF: 3 (DME) blood-glucose meter [FreeStyle Lite Meter] Kit See Rx Instructions .ROUTE .MEDSUPPLY Qty: 1 RF: 0 (DME) lancets 28 gauge misc See Rx Instructions ea topical QID Qty: 100 RF: 4 (DME) lancets [FreeStyle Lancets] 28 gauge misc See Rx Instructions .ROUTE .MEDSUPPLY Qty: 100 RF: 4 olanzapine 7.5 mg tablet 7.5 mg PO BEDTIME Qty: 90 RF: 3 phenytoin sodium extended 100 mg capsule 200 mg PO BID Qty: 360 RF: 3 oxybutynin chloride 15 mg tablet extended release 24 hr 30 mg PO DAILY Qty: 180 RF: 3 omeprazole 40 mg capsule,delayed release(DR/EC) 40 mg PO DAILY Qty: 90 RF: 3 multivitamin Tablet 1 tab PO DAILY Qty: 90 RF: 3 levothyroxine 100 mcg tablet 100 mcg PO DAILY Qty: 90 RF: 3 loratadine 10 mg tablet 10 mg PO DAILY Qty: 90 RF: 0 sucralfate 1 gram tablet 1 g PO TID Qty: 90 RF: 2 fenofibrate micronized 200 mg capsule 200 mg PO DAILY Qty: 90 RF: 3 topiramate 100 mg tablet 100 mg PO DAILY Qty: 90 RF: 0 losartan 100 mg tablet 100 mg PO DAILY Qty: 90 RF: 0 lidocaine 4 % adhesive patch,medicated 1 patch topical Q24H PRN (Reason: pain) Qty: 15 RF: 0 acetaminophen [Aphen] 325 mg tablet 650 mg PO Q6H PRN (Reason: pain) Qty: 20 RF: 0 lorazepam 0.5 mg tablet 0.5 mg PO BID PRNRF: 0 cholecalciferol (vitamin D3) 25 mcg (1,000 unit) tablet 25 mcg PO DAILY RF: 0 gabapentin 100 mg capsule 100 mg PO TID RF: 0 trazodone 150 mg tablet 150 mg PO BEDTIME PRN (Reason: insomnia) RF: 0 perphenazine 4 mg tablet 4 mg PO DAILY PRNRF: 0 Shingrix (PF) 50 mcg/0.5 mL suspension for reconstitution IM RF: 0 pravastatin 40 mg tablet 40 mg PO BEDTIME RF: 0 metformin 500 mg tablet 500 mg PO DAILY RF: 0 Fluzone HighDose Quad 20-21 PF 240 mcg/0.7 mL syringe IM RF: 0 (DME) FreeStyle Lite Strips Strip See Rx Instructions ea Not Applicable DAILY Qty: 10 RF: 0 triamcinolone acetonide 0.1 % cream 1 appl topical DAILY Qty: 80 RF: 2 perphenazine 16 mg tablet 16 mg PO TID RF: 0 lorazepam 1 mg tablet 1 mg PO BEDTIME RF: 0 Interventions: ED Discharge Assessment Last Done: 02/19/21 20:22 Discharge Date/Time: 02/19/21 20:05
--- NOTE | 2021-02-19 16:52 | ECG_ITS ---
Test Reason : DIZZINESS Blood Pressure : / mmHG Vent. Rate : 061 BPM Atrial Rate : 061 BPM P-R Int : 240 ms QRS Dur : 098 ms QT Int : 422 ms P-R-T Axes : 031 -29 050 degrees QTc Int : 424 ms Sinus rhythm with sinus arrhythmia with 1st degree A-V block Incomplete right bundle branch block Borderline ECG When compared with ECG of 20-NOV-2020 18:18, No significant change was found Referred By: Dionisio Cartwright Electronically Signed By:BERNA GUTIERREZ
[2021-02-19] MEDS: Meclizine HCl 25 MG TABLET 50 MG PO (17:15)
[2021-02-19 17:28] LABS: MANUAL DIFF FLAG NO
[2021-02-19 17:29] LABS: Basophils Percent Auto 0.4 % (0-2); Eosinophils Absolute Auto 0.3 X10*3/uL (0.0-0.4); Eosinophils Percent Auto 4.7 % (0-4); Hematocrit 35.1 % (37-47); Hemoglobin 11.6 g/dl (12.0-16.0); Imm Gran Abs Auto 0.01 X10*3/uL (0.00-0.03); Imm Gran Pct Auto 0.1 % (0.0-0.4); Lymphocytes Absolute Auto 2.3 X10*3/uL (1.2-4.9); Lymphocytes Percent Auto 31.5 % (20-40); Mean Corpuscular Hemoglobin 29.4 pg (27.0-33.0); Mean Corpuscular Volume 89.1 fL (80-98); Mean Platelet Volume 9.5 fL (9.4-12.3); Monocytes Absolute Auto 0.9 X10*3/uL (0.1-1.2); Monocytes Percent Auto 13.1 % (2-11); Neutrophils Absolute Auto 3.6 X10*3/uL (2.0-8.3); Neutrophils Percent Auto 50.2 % (45-73); Platelet Count 308 X10*3/uL (160-400); Red Blood Count 3.94 X10*6/uL (4.20-5.50); Red Cell Distribution Width 12.8 % (11.0-16.0); White Blood Count 7.2 X10*3/uL (4.8-10.8)
[2021-02-19 17:51] LABS: Anion Gap 15 (12-20); Blood Urea Nitrogen 17 mg/dL (9-16); Calcium 9.5 mg/dL (8.4-10.2); Carbon Dioxide 24 mmol/L (22-29); Chloride 103 mmol/L (96-108); Creatinine Clr Calc Pharmacy 59.4; Estimated Glomerular Filt Rate > 60; Glucose Random 86 mg/dL (60-115); Potassium 4.8 mmol/L (3.3-5.1); Sodium 137 mmol/L (135-145)
[2021-02-19 18:31] VITALS: BP 138/71; PULSE 68; RESP 14; TEMP 36.9; O2SAT 94
--- NOTE | 2021-02-19 19:22 | PC.NURSE ---
ambulating steadily around ED. feels safe to go home. has walker at home, vna coming on sunday.
[2021-02-19 19:53] VITALS: BP 169/80; PULSE 79; RESP 17; O2SAT 100
[2021-02-19] MEDS: Phenytoin Sodium Extended 100 MG CAPSULE 200 MG PO (19:54)
[2021-02-19 20:12] LABS: Phenytoin Dilantin 18.2 ug/mL (10.0-20.0)
== END 2021-02-19 20:05 | disposition home or self-care (01) ==
PROVIDERS: Emergency Provider Internal Medicine; PCP Internal Medicine
DX: H81.10 Benign paroxysmal vertigo, unspecified ear (principal); I10 Essential (primary) hypertension; E11.9 Type 2 diabetes mellitus without complications; Z79.4 Long term (current) use of insulin; Z79.899 Other long term (current) drug therapy
CPT/HCPCS: 36415; 70450; 80048; 80185; 85025; 93005; 99284

== ENCOUNTER 2021-04-04 07:23 | Outpatient (REF) | payer MEDICARE, MEDICAID, SELFPAY ==
[2021-04-04 11:55] LABS: Estimated Average Glucose 111 mg/dL; Hemoglobin A1c % 5.5 %
[2021-04-04 11:59] LABS: Alanine Aminotransferase 18 U/L (0-31); Albumin Level 4.7 g/dL (3.5-5.0); Alkaline Phosphatase 68 U/L (39-117); Anion Gap 15 (12-20); Aspartate Amino Transferase 24 U/L (5-31); Bilirubin Total 0.4 mg/dL (0.0-1.0); Blood Urea Nitrogen 14 mg/dL (9-16); Calcium 10.1 mg/dL (8.4-10.2); Carbon Dioxide 25 mmol/L (22-29); Chloride 98 mmol/L (96-108); Cholesterol 181 mg/dL; Estimated Glomerular Filt Rate > 60; Glucose Fasting 103 mg/dL (60-99); HDL Cholesterol 59 mg/dL; LDL Cholesterol Calculated 76 mg/dl; Potassium 4.1 mmol/L (3.3-5.1); Sodium 134 mmol/L (135-145); Total Protein 7.9 g/dL (6.5-8.0); Triglycerides 233 mg/dL
[2021-04-04 12:31] LABS: Phenytoin Dilantin 23.3 ug/mL (10.0-20.0)
== END 2021-04-04 07:24 | disposition home or self-care (01) ==
LOC: HO.HMGCLDS 07:23
PROVIDERS: PCP Internal Medicine; Visit Provider Internal Medicine
DX: E11.9 Type 2 diabetes mellitus without complications (principal); E78.5 Hyperlipidemia, unspecified; I10 Essential (primary) hypertension; R56.9 Unspecified convulsions
CPT/HCPCS: 36415; 80053; 80061; 80185; 83036

== ENCOUNTER 2021-04-19 07:24 | Outpatient (REF) | payer MEDICARE, MEDICAID, SELFPAY ==
[2021-04-19 12:32] LABS: Phenytoin Dilantin 14.4 ug/mL (10.0-20.0)
== END 2021-04-19 07:25 | disposition home or self-care (01) ==
LOC: HO.HMGCLDS 07:24
PROVIDERS: PCP Internal Medicine; Visit Provider Internal Medicine
DX: R56.9 Unspecified convulsions (principal)
CPT/HCPCS: 36415; 80185

== ENCOUNTER 2021-06-23 08:47 | Outpatient (REF) | payer MEDICARE, MEDICAID, SELFPAY ==
[2021-06-23 11:59] LABS: Phenytoin Dilantin 10.7 ug/mL (10.0-20.0)
== END 2021-06-23 08:48 | disposition home or self-care (01) ==
LOC: HO.HMGCLDS 08:47
PROVIDERS: PCP Internal Medicine; Visit Provider Psychiatry & Neurology Neurology
DX: R56.9 Unspecified convulsions (principal); Z79.899 Other long term (current) drug therapy
CPT/HCPCS: 36415; 80185

== ENCOUNTER 2021-09-02 12:09 | Outpatient (REF) | payer MEDICARE, MEDICAID, SELFPAY ==
[2021-09-02 15:47] LABS: Phenytoin Dilantin 20.3 ug/mL (10.0-20.0)
== END 2021-09-02 12:10 | disposition home or self-care (01) ==
LOC: HO.HMGCLDS 12:09
PROVIDERS: PCP Internal Medicine; Visit Provider Psychiatry & Neurology Neurology
DX: R56.9 Unspecified convulsions (principal)
CPT/HCPCS: 36415; 80185

== ENCOUNTER 2021-09-12 06:09 | Outpatient (REF) | payer MEDICARE, MEDICAID, SELFPAY ==
[2021-09-12 12:07] LABS: Hematocrit 37.6 % (37.0-47.0); Hemoglobin 12.1 g/dl (12.0-16.0); Mean Corpuscular HGB Conc 32.2 g/dl (31.0-35.0); Mean Corpuscular Hemoglobin 29.1 pg (27.0-33.0); Mean Corpuscular Volume 90.4 fL (80.0-98.0); Mean Platelet Volume 10.4 fL (9.4-12.3); Platelet Count 354 X10*3/uL (160-400); Red Blood Count 4.16 X10*6/uL (4.20-5.50); Red Cell Distribution Width 13.6 % (11.0-16.0); White Blood Count 6.4 X10*3/uL (4.8-10.8)
[2021-09-12 12:10] LABS: Estimated Average Glucose 117 mg/dL; Hemoglobin A1c % 5.7 %
[2021-09-12 12:19] LABS: Creatinine Urine 22.61 mg/dL; Microalbum/Creatinine Ratio Ur 110.5 ug/mg cr
[2021-09-12 12:30] LABS: Alanine Aminotransferase 18 U/L (0-31); Albumin Level 4.4 g/dL (3.5-5.0); Alkaline Phosphatase 70 U/L (39-117); Anion Gap 13 (12-20); Aspartate Amino Transferase 19 U/L (5-31); Bilirubin Total 0.3 mg/dL (0.0-1.0); Blood Urea Nitrogen 15 mg/dL (9-16); Calcium 9.7 mg/dL (8.4-10.2); Carbon Dioxide 25 mmol/L (22-29); Chloride 105 mmol/L (96-108); Cholesterol 182 mg/dL; Estimated Glomerular Filt Rate > 60; Glucose Fasting 127 mg/dL (60-99); HDL Cholesterol 62 mg/dL; Iron 76 mcg/dL (30-160); LDL Cholesterol Calculated 93 mg/dl; Percent Iron Saturation 16 % (15-50); Potassium 4.1 mmol/L (3.3-5.1); Sodium 139 mmol/L (135-145); Total Iron Binding Capacity 484 mcg/dL (228-428); Total Protein 7.5 g/dL (6.5-8.0); Triglycerides 136 mg/dL; Unsaturated Iron Binding 408 ug/dL
[2021-09-12 12:52] LABS: TSH reflex Free T4 2.82 uIU/mL (0.32-4.0)
== END 2021-09-12 06:10 | disposition home or self-care (01) ==
LOC: HO.HMGCLDS 06:09
PROVIDERS: PCP Internal Medicine; Visit Provider Internal Medicine
DX: E11.9 Type 2 diabetes mellitus without complications (principal); E78.5 Hyperlipidemia, unspecified; I10 Essential (primary) hypertension
CPT/HCPCS: 36415; 80053; 80061; 82043; 83036; 83540; 84443; 85027

== ENCOUNTER 2022-02-19 04:58 | Emergency (ER) | payer MEDICARE, MEDICAID, SELFPAY ==
--- NOTE | ~2022-02-19 | XR_ITS ---
EXAMINATION: XR CHEST CLINICAL INFORMATION: Cough for 6 days COMPARISON: 05/05/2020 TECHNIQUE: 2 views of the chest were obtained. FINDINGS: No significant abnormality is noted involving the heart, lungs, mediastinum, bony thorax or soft tissues. XR/XR chest 2V IMPRESSION: Unremarkable examination.
[2022-02-19 05:02] VITALS: BP 142/66; BP 148/50; PULSE 72; PULSE 88; RESP 18; TEMP 36; O2SAT 96; O2SAT 98; BMI 27.9
[2022-02-19 05:33] LABS: COVID-19 Test Negative (Negative); IDNOW Serial# 55D5AD1C; Influenza A Negative (Negative); Influenza B2 Negative (Negative)
--- NOTE | 2022-02-19 05:35 | ED_ITS ---
HPI - General Adult General Chief complaint: Upper Respiratory Symptoms Stated complaint: cough Time Seen by Provider: 02/19/22 05:34 Source: patient History of Present Illness HPI narrative: This is a 71-year-old female with a history of bipolar disorder, diabetes, hypertension, complains of a cough for about 5 days with some associated shortness of breath. The patient denies any fever. She said she was tested for COVID and was negative. She denies any rhinorrhea. Her cough is minimally productive. She denies any history of smoking. She has vomited after coughing really hard. She denies any diarrhea, has actually been constipated for 3 or 4 days. She denies any lower extremity swelling. Patient saw her primary care physician 4 days ago and was prescribed albuterol, states she was frustrated she was not prescribed cough medicine Related Data Home Medications Medication Instructions Recorded Confirmed flu vacc [id number](65yr up)-PF 240 ml IM 08/30/20 09/14/21 mcg/0.7 mL intramuscular syringe gabapentin 100 mg capsule 100 mg PO TID 08/30/20 09/14/21 perphenazine 4 mg tablet 4 mg PO DAILY PRN 08/30/20 09/14/21 varicella-zoster glycoE [id number] IM 08/30/20 09/14/21 adj(PF) 50 mcg/0.5 mL IM susp, kit perphenazine 16 mg tablet 16 mg PO TID 09/08/20 09/14/21 hydroxyzine HCl 25 mg tablet 25 mg PO BEDTIME PRN insomnia 05/11/21 09/14/21 lorazepam 0.5 mg tablet 0.5 mg PO DAILY PRN 05/11/21 09/14/21 lorazepam 0.5 mg tablet (Ativan) 0.5 mg PO BEDTIME PRN 09/14/21 09/14/21 Previous Rx's Medication Instructions Recorded triamcinolone acetonide 0.1 % 1 appl topical DAILY #80 grams 08/30/20 topical cream blood-glucose meter (FreeStyle #1 ea 09/15/20 Lite Meter) lancets 28 gauge #100 ea 09/17/20 lancets 28 gauge (FreeStyle #100 ea 09/28/20 Lancets) olanzapine 7.5 mg tablet 7.5 mg PO BEDTIME #90 tabs 11/15/20 acetaminophen 325 mg tablet (Aphen) 650 mg PO Q6H PRN pain #20 tabs 11/20/20 lidocaine 4 % topical patch 1 patch topical Q24H PRN pain #15 11/20/20 ea meclizine 12.5 mg tablet 12.5 mg PO TID PRN dizziness #20 02/19/21 tabs sucralfate 1 gram tablet 1 g PO TID #270 tabs 03/24/21 cholecalciferol (vitamin D3) 25 25 mcg PO DAILY #90 tabs 03/29/21 mcg (1,000 unit) tablet losartan 100 mg tablet 100 mg PO DAILY #90 tabs 05/02/21 pravastatin 40 mg tablet 40 mg PO BEDTIME #90 tabs 05/05/21 topiramate 100 mg tablet 100 mg PO DAILY #90 tabs 05/07/21 levothyroxine 100 mcg tablet 100 mcg PO DAILY #90 tabs 10/04/21 multivitamin 1 tab PO DAILY #90 tabs 10/04/21 omeprazole 40 mg capsule,delayed 40 mg PO DAILY #90 caps 10/04/21 release oxybutynin chloride 15 mg 30 mg PO DAILY #180 tabs 10/04/21 tablet,extended release 24 hr phenytoin sodium extended 100 mg 200 mg PO BID #360 caps 10/04/21 capsule fenofibrate micronized 200 mg 200 mg PO DAILY #90 caps 10/18/21 capsule blood sugar diagnostic (FreeStyle #100 ea 10/19/21 Lite Strips) olmesartan 40 mg tablet 40 mg PO DAILY #90 tabs 11/28/21 lactulose 10 gram/15 mL oral 10 g (15 mL) PO DAILY #500 mL 11/29/21 solution loratadine 10 mg tablet 10 mg PO DAILY #90 tabs 01/17/22 albuterol sulfate 90 mcg/actuation 1 inh inhalation QID PRN shortness 02/14/22 aerosol inhaler of breath or wheezing #6.7 grams benzonatate 200 mg capsule 200 mg PO TID PRN cough #20 caps 02/19/22 dextromethorphan-guaifenesin 5 10 ml PO Q4-8H PRN cough #237 mL 02/19/22 mg-100 mg/5 mL oral liquid (Robitussin Cough-Chest Congestion DM) Allergies Allergy/AdvReac Type Severity Reaction Status Date / Time cyclobenzaprine Allergy Unknown UNKNOWN Verified 02/14/22 11:38 [From FLEXERIL] [place] Carbonate Allergy Unknown unknown Verified 02/14/22 11:38 quinine [Quinine] Allergy Unknown UNSURE Verified 02/14/22 11:38 risperidone [From RISPERDAL] Allergy Unknown UNKNOWN Verified 02/14/22 11:38 Sulfa (Sulfonamide Allergy Unknown UNKNOWN Verified 02/14/22 11:38 Antibiotics) [SULFA (SULFONAMIDE ANTIBIOTICS)] carbamazepine [From Tegretol] AdvReac Unknown INCREASE Verified 02/14/22 11:38 WBC/DIARRHEA clozapine [From Clozaril] AdvReac Unknown FEVER Verified 02/14/22 11:38 divalproex sodium AdvReac Unknown DIARRHEA Verified 02/14/22 11:38 [From Depakote] lithium [[place]] AdvReac Unknown DIARRHEA/TO Verified 02/14/22 11:38 XIC quetiapine [From Seroquel] AdvReac Unknown INCREASE Verified 02/14/22 11:38 HALLUCINATION Review of Systems Review of Systems: Yes all other systems are reviewed and are negative Constitutional: Constitutional: Reports as per HPI and Denies fever(s) Eyes: Eyes: Reports as per HPI and Reports no additional eye complaints ENT: Reports system reviewed and no additional complaints, except as documented, Reports as per HPI, Denies nasal congestion, Denies nasal discharge and Denies sore throat Cardiovascular: Cardiovascular: Reports as per HPI, Denies chest pain and Reports dyspnea Respiratory: Respiratory: Reports as per HPI, Reports cough and Reports dyspnea Gastrointestinal: Gastrointestinal: Reports as per HPI, Denies abdominal pain, Reports constipation, Denies diarrhea and Denies vomiting Genitourinary: Genitourinary: Reports as per HPI, Denies hematuria, Denies urinary frequency and Denies dysuria Musculoskeletal: Musculoskeletal: Reports no additional musculoskeletal complaints and Denies numbness Integumentary/Breasts: Skin/Breast: Reports as per HPI and Denies rash Neurologic: Reports as per HPI, Denies focal weakness and Denies numbness Psychiatric: Psychiatric: Reports no additional psychiatric complaints and Reports as per HPI Endocrine: Endocrine: Reports no additional endocrine complaints and Reports as per HPI Hematologic/Lymphatic: Hematologic/Lymphatic: Reports no additional hematologic/lymphatic complaints, Reports as per HPI and Reports other (No peripheral edema) [facility] Past Medical History Surgical History History of bladder suspension procedure Hx of cholecystectomy Family History Family History Father Lung cancer Mother Lung cancer Daughter Uterine cancer Daughter Skin cancer Brother Lung cancer Social History Social History Housing: Apartment Alcohol intake: never Patient Tobacco Use Status: Never used Tobacco e-Cigarette/Vaping Use: Never Used Second Hand Smoke Exposure: No Advance Directives: No Advance Directives Information Provided: Yes service: No Current occupational status: other Current occupational exposures/hazards: No Physical Exam ED Vital Signs: Vital Signs - 24 hr 02/19/22 05:02 Temperature 96.8 F Pulse Rate 72 Respiratory Rate 18 Blood Pressure 148/50 H Pulse Oximetry 96 Oxygen Delivery Method Room Air BMI result Body Mass Index 27.9 Const General: no acute distress Orientation/consciousness: patient oriented x3 HENMT Head: Yes normal to inspection General nose exam: Normal external nose present Mouth: moist mucous membranes Throat: Yes posterior oropharynx normal, Yes tonsils normal and Yes uvula midline Eyes Eyelids: Yes eyelids normal Conjunctivae: conjunctivae normal Pupils: Equal, round and reactive pupils present Neck Neck: Yes supple Resp Effort & Inspection: normal respiratory effort Auscultation: clear to auscultation bilaterally Cardio Rate: regular rate Rhythm: regular rhythm Heart sounds: S1 normal heart sound present, S2 normal heart sound present, no gallops, no murmurs and no rubs GI Inspection: No distended Palpation (GI): Soft to palpation and nontender Auscultation: normal bowel sounds Skin General skin exam: other (Warm and dry) Neuro General: patient oriented x3 and CN's II-XI intact bilaterally Cranial nerves: Yes Equal, round and reactive pupils present Extrem General: Yes no pedal edema Psych Affect: normal affect Attitude: cooperative Medical Decision Making MDM Narrative Medical decision making narrative: Patient with a cough for about 5 days. COVID negative. Chest x-ray negative. Patient not ill appearing, lungs clear on exam, no fever. Will treat with cough medicine Lab Data Labs: Lab Results 02/19/22 02/19/22 Range/Units 05:08 05:08 COVID-19 ([facility]) Negative (Negative) COVID-19 Clin Com See Note Influenza Type A (CORTEZ) Negative (Negative) Influenza Type B (CORTEZ) Negative (Negative) Influenza A & B Note See Note Imaging Data Chest x-ray: Radiologist's impression: IMPRESSION: Unremarkable examination. Discharge Plan Discharge Clinical Impression: Cough Patient Disposition: Home, Self-Care Instructions: Acute Cough (ED) Additional Instructions: Drink plenty of fluids. Use the cough medicine as prescribed. Follow-up with your primary care physician as needed. Prescriptions: New Robitussin Cough-Chest Brett DM 5-100 mg/5 mL liquid 10 ml PO Q4-8H PRN (Reason: cough) Qty: 237 0RF benzonatate 200 mg capsule 200 mg PO TID PRN (Reason: cough) Qty: 20 0RF No Action (DME) blood-glucose meter [FreeStyle Lite Meter] Kit See Rx Instructions .ROUTE .MEDSUPPLY Qty: 1 0RF Rx Instructions: As directed (DME) lancets 28 gauge misc See Rx Instructions topical QID Qty: 100 4RF Rx Instructions: test three times a day (DME) lancets [FreeStyle Lancets] 28 gauge misc See Rx Instructions .ROUTE .MEDSUPPLY Qty: 100 4RF Rx Instructions: use to test blood sugar three times daily olanzapine 7.5 mg tablet 7.5 mg PO BEDTIME Qty: 90 3RF sucralfate 1 gram tablet 1 g PO TID Qty: 270 3RF cholecalciferol (vitamin D3) 25 mcg (1,000 unit) tablet 25 mcg PO DAILY Qty: 90 3RF losartan 100 mg tablet 100 mg PO DAILY Qty: 90 3RF pravastatin 40 mg tablet 40 mg PO BEDTIME Qty: 90 3RF topiramate 100 mg tablet 100 mg PO DAILY Qty: 90 3RF oxybutynin chloride 15 mg tablet extended release 24 hr 30 mg PO DAILY Qty: 180 3RF phenytoin sodium extended 100 mg capsule 200 mg PO BID Qty: 360 3RF multivitamin Tablet 1 tab PO DAILY Qty: 90 3RF omeprazole 40 mg capsule,delayed release(DR/EC) 40 mg PO DAILY Qty: 90 3RF levothyroxine 100 mcg tablet 100 mcg PO DAILY Qty: 90 3RF fenofibrate micronized 200 mg capsule 200 mg PO DAILY Qty: 90 3RF (DME) FreeStyle Lite Strips Strip See Rx Instructions .Route Qty: 100 3RF Rx Instructions: Test blood sugars daily olmesartan 40 mg tablet 40 mg PO DAILY Qty: 90 0RF lactulose 10 gram/15 mL solution 10 g PO DAILY Qty: 500 3RF loratadine 10 mg tablet 10 mg PO DAILY Qty: 90 3RF lidocaine 4 % adhesive patch,medicated 1 patch topical Q24H PRN (Reason: pain) Qty: 15 0RF Rx Instructions: may leave on for up to 12 hrs acetaminophen [Aphen] 325 mg tablet 650 mg PO Q6H PRN (Reason: pain) Qty: 20 0RF meclizine 12.5 mg tablet 12.5 mg PO TID PRN (Reason: dizziness) Qty: 20 0RF hydroxyzine HCl 25 mg tablet 25 mg PO BEDTIME PRN (Reason: insomnia) gabapentin 100 mg capsule 100 mg PO TID perphenazine 4 mg tablet 4 mg PO DAILY PRN Shingrix (PF) 50 mcg/0.5 mL suspension for reconstitution IM Fluzone HighDose Quad 20-21 PF 240 mcg/0.7 mL syringe IM triamcinolone acetonide 0.1 % cream 1 appl topical DAILY Qty: 80 2RF lorazepam 0.5 mg tablet 0.5 mg PO DAILY PRN perphenazine 16 mg tablet 16 mg PO TID lorazepam [Ativan] 0.5 mg tablet 0.5 mg PO BEDTIME PRN albuterol sulfate 90 mcg/actuation HFA aerosol inhaler 1 inh inhalation QID PRN (Reason: shortness of breath or wheezing) Qty: 6.7 1RF
== END 2022-02-19 07:05 | disposition home or self-care (01) ==
PROVIDERS: Emergency Provider Emergency Medicine
DX: R05.9 Cough, unspecified (principal); Z20.822 Contact with and (suspected) exposure to COVID-19; Z79.899 Other long term (current) drug therapy
CPT/HCPCS: 71046; 87502; 87635; 99281; 99283

== ENCOUNTER 2022-04-07 14:09 | Outpatient (REF) | payer MEDICARE, MEDICAID, SELFPAY ==
[2022-04-07 16:32] LABS: Appearance Urine CLOUDY; Color Urine YELLOW; Glucose Urine UA NEG (NEG); Leukocyte Esterase Urine 3+ (NEG); Nitrite Urine NEG (NEG); Specific Gravity - Urine <= 1.005 (1.005-1.025); UACC Culture Trigger YES; Urine Blood 2+ (NEG); Urine Ketones NEG (NEG); Urine Protein TRACE MG/DL (NEG-TRACE)
[2022-04-07 17:15] LABS: Bacteria Urine 2+ /LPF; Renal Epithelial Cells Urine TRACE /LPF; Squamous Epithelial Cell Urine 1+ /LPF; WBC Urine TNTC /HPF (0-4)
== END 2022-04-07 14:10 | disposition home or self-care (01) ==
LOC: HO.HMGCLNP 14:09
PROVIDERS: PCP Internal Medicine; Visit Provider Internal Medicine
DX: Z13.89 Encounter for screening for other disorder (principal)
CPT/HCPCS: 81001; 87086

== ENCOUNTER 2022-04-11 14:50 | Outpatient (REF) | payer MEDICARE, MEDICAID, SELFPAY ==
[2022-04-11 17:21] LABS: Appearance Urine CLOUDY; Color Urine YELLOW; Glucose Urine UA NEG (NEG); Leukocyte Esterase Urine 3+ (NEG); Nitrite Urine NEG (NEG); PH 5.5 (5.0-8.0); Specific Gravity - Urine <= 1.005 (1.005-1.025); UACC Culture Trigger YES; Urine Blood 1+ (NEG); Urine Ketones NEG (NEG); Urine Protein 1+ MG/DL (NEG-TRACE)
[2022-04-11 17:44] LABS: Bacteria Urine 3+ /LPF; Squamous Epithelial Cell Urine TRACE /LPF
== END 2022-04-11 14:51 | disposition home or self-care (01) ==
LOC: HO.HMGCLNP 14:50
PROVIDERS: PCP Internal Medicine; Visit Provider Internal Medicine
DX: Z13.89 Encounter for screening for other disorder (principal)
CPT/HCPCS: 81001; 81003; 87086; 87147

== ENCOUNTER 2022-04-18 14:17 | Outpatient (REF) | payer MEDICARE, MEDICAID, SELFPAY ==
[2022-04-18 17:07] LABS: Anion Gap 15 (12-20); Blood Urea Nitrogen 21 mg/dL (9-16); Calcium 9.7 mg/dL (8.4-10.2); Carbon Dioxide 23 mmol/L (22-29); Chloride 96 mmol/L (96-108); Estimated Glomerular Filt Rate > 60; Glucose Random 101 mg/dL (60-115); Potassium 4.8 mmol/L (3.3-5.1); Sodium 129 mmol/L (135-145)
[2022-04-18 17:34] LABS: TSH reflex Free T4 1.24 uIU/mL (0.32-4.0)
[2022-04-18 18:16] LABS: Phenytoin Dilantin 13.7 ug/mL (10.0-20.0)
== END 2022-04-18 14:18 | disposition home or self-care (01) ==
LOC: HO.HMGCLDS 14:17
PROVIDERS: PCP Internal Medicine; Visit Provider Internal Medicine
DX: I10 Essential (primary) hypertension (principal); R56.9 Unspecified convulsions; Z79.899 Other long term (current) drug therapy
CPT/HCPCS: 36415; 80048; 80185; 84443

== ENCOUNTER 2022-05-09 09:50 | Outpatient (REF) | payer MEDICARE, MEDICAID, SELFPAY ==
[2022-05-09 11:17] LABS: Appearance Urine Clear; Color Urine Yellow; Glucose Urine UA Negative (Negative); Leukocyte Esterase Urine Negative (Negative); Nitrite Urine Negative (Negative); PH 7.5 (5.0-9.0); Urine Blood Negative (Negative); Urine Ketones Negative (Negative); Urine Protein Negative (Neg-Trace)
[2022-05-09 11:36] LABS: Mean Corpuscular HGB Conc 32.4 g/dl (31.0-35.0); Mean Corpuscular Hemoglobin 29.5 pg (27.0-33.0); Mean Corpuscular Volume 91.2 fL (80.0-98.0); Mean Platelet Volume 10.2 fL (9.4-12.3); Platelet Count 351 X10*3/uL (160-400); Red Blood Count 3.73 X10*6/uL (4.20-5.50); Red Cell Distribution Width 14.2 % (11.0-16.0); White Blood Count 6.2 X10*3/uL (4.8-10.8)
[2022-05-09 11:45] LABS: Estimated Average Glucose 120 mg/dL; Hemoglobin A1c % 5.8 %
[2022-05-09 12:11] LABS: Alanine Aminotransferase 14 U/L (0-31); Albumin Level 4.4 g/dL (3.5-5.0); Alkaline Phosphatase 67 U/L (39-117); Anion Gap 16 (12-20); Aspartate Amino Transferase 18 U/L (5-31); Blood Urea Nitrogen 17 mg/dL (9-16); Calcium 9.5 mg/dL (8.4-10.2); Carbon Dioxide 23 mmol/L (22-29); Chloride 100 mmol/L (96-108); Cholesterol 176 mg/dL; Estimated Glomerular Filt Rate > 60; Glucose Fasting 104 mg/dL (60-99); HDL Cholesterol 64 mg/dL; LDL Cholesterol Calculated 85 mg/dl; Potassium 4.6 mmol/L (3.3-5.1); Sodium 134 mmol/L (135-145); Total Protein 7.5 g/dL (6.5-8.0); Triglycerides 135 mg/dL
[2022-05-09 12:19] LABS: Bilirubin Total 0.2 mg/dL (0.0-1.0)
== END 2022-05-09 09:51 | disposition home or self-care (01) ==
LOC: HO.HMGCLDS 09:50
PROVIDERS: PCP Internal Medicine; Visit Provider Internal Medicine
DX: R30.0 Dysuria (principal); E87.1 Hypo-osmolality and hyponatremia; I10 Essential (primary) hypertension; E78.5 Hyperlipidemia, unspecified; E11.9 Type 2 diabetes mellitus without complications
CPT/HCPCS: 36415; 80048; 80053; 80061; 81003; 83036; 85027

== ENCOUNTER 2022-06-08 06:38 | Outpatient (REF) | payer MEDICARE, MEDICAID, SELFPAY ==
[2022-06-08 11:29] LABS: Anion Gap 16 (12-20); Blood Urea Nitrogen 23 mg/dL (9-16); Calcium 9.5 mg/dL (8.4-10.2); Carbon Dioxide 23 mmol/L (22-29); Chloride 99 mmol/L (96-108); Estimated Glomerular Filt Rate > 60; Glucose Random 132 mg/dL (60-115); Potassium 4.5 mmol/L (3.3-5.1); Sodium 133 mmol/L (135-145)
[2022-06-08 12:46] LABS: Phenytoin Dilantin 8.2 ug/mL (10.0-20.0)
== END 2022-06-08 06:39 | disposition home or self-care (01) ==
LOC: HO.HMGCLDS 06:38
PROVIDERS: Absent Provider Psychiatry & Neurology Neurology; PCP Internal Medicine; Visit Provider Internal Medicine
DX: Z13.89 Encounter for screening for other disorder (principal)
CPT/HCPCS: 36415; 80048; 80185

== ENCOUNTER 2022-06-08 12:48 | Emergency (ER) | payer MEDICARE, MEDICAID, SELFPAY ==
--- NOTE | ~2022-06-08 | CT_ITS ---
EXAMINATION: CT HEAD WITHOUT CONTRAST CLINICAL INFORMATION: Seizure COMPARISON: Head CT from 02/19/2021 TECHNIQUE: Contiguous axial imaging was performed from the skull base to vertex without intravenous administration of contrast. This CT examination was performed using dose optimization techniques as appropriate, variously including the following: *Automated exposure control *Adjustment of mA and/or kV according to patient size (this includes techniques or standardized protocols for targeted exams where dose is matched to indication/reason for exam; i.e. extremities or head) *Use of iterative reconstruction technique DLP: 711 mGy-cm FINDINGS: No acute finding compared to 02/19/2021. There is atherosclerotic calcification of cavernous carotid arteries. Again noted is patchy hypoattenuation within the supratentorial white matter. The findings are consistent with sequela of chronic, moderate microangiopathy. The langford-white matter differentiation is well preserved. No evidence of an acute major vascular territory infarction. No intracranial hemorrhage, extra-axial fluid collection, focal mass effect or midline shift. The ventricles have normal size and configuration; no hydrocephalus. 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 The brainstem and cerebellum have a normal appearance. The cerebellar tonsils are in normal position. The calvarium is intact. The visualized paranasal sinuses, mastoid air cells and middle ear cavities are well aerated. The orbits and globes are unremarkable. Chronic osteoarthritis of the temporomandibular joints. CT/CT head/brain wo IV con IMPRESSION: * No intracranial mass, hemorrhage or other acute intracranial pathology. * Chronic small vessel ischemic changes of the supratentorial white matter.
--- NOTE | ~2022-06-08 | XR_ITS ---
EXAMINATION: XR CHEST CLINICAL INFORMATION: Seizure COMPARISON: Chest x-ray 02/19/2022 TECHNIQUE: 2 views of the chest were obtained. FINDINGS: The lungs are clear. No airspace consolidation, pleural effusion, or pneumothorax. The cardiomediastinal silhouette is within normal limits. No acute osseous injury. 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 XR/XR chest 2V IMPRESSION: 1. No acute pulmonary process.
[2022-06-08 12:59] VITALS: BP 135/76; PULSE 69; PULSE 74; RESP 18; O2SAT 97; BMI 27.9
--- NOTE | 2022-06-08 13:09 | PC.NURSE ---
Pt is O/A x 4, respiration is even, non-labored., speaking in full and clear sentences. Lung sounds are clear and heart sounds regular . Skin is pink, warm and dry, no edema noted. Abdomen is soft, non-tender,Bowel sound in 4 quads. Bed rails paded and bed at lowest position. Pt aware of plan of care . PT stated felt icy and shaky in the hands. Hx of seizures, DM, was admitted in the hospital for 4 days in April for seizures. Pt stated she had a seizures while sitting lasting for 10 minutes, on Dilantin, med compliance. Denies falling, LOC, SOB, chest pain or head strike. [ End ]
[2022-06-08 13:19] VITALS: BP 119/59; PULSE 70; RESP 18; TEMP 36.9; O2SAT 95
--- OUTSIDE RECORDS SUMMARY | 2022-06-08 13:23 | XMS_ITS | Continuity of Care Document ---
:1950 Author Organization [facility] Address [address] [place] [id number]- Care Team Providers Name Role Phone Carmelina Obregon MD Primary Care Physician Encounter [facility] Date(s): 03/27/22 - 03/30/[address] [id number] Encounter Diagnosis Seizure, elevated Dilantin levels, back pain difficulty ambulation (Final) - 03/27/22 Discharge Disposition: A-D/C Home Attending Physician: Fatmata Saunders MD Admitting Physician: Delbert Claudio MD Referring Physician: Not on Staff, Referring MD Allergies, Adverse Reactions, Alerts Substance Reaction Severity Status lithium Active sulfADIAZINE Active Tegretol Active quiNINE Active Seroquel Active Risperdal Active Clozaril Active Depakote Active Immunizations Given and Recorded Vaccine Date Status Refusal Reason SARS-CoV-2 (COVID-19) mRNA BNT-162b2 vac 06/29/21 Recorde d influenza virus vaccine, inactivated 06/22/21 Recorded SARS-CoV-2 (COVID-19) Ad26 vaccine 11/29/20 Recorded Medications acetaminophen 325 mg oral tablet 650 mg, 2, tablet, By Mouth, Daily, PRN, Maintenance, pain, 03/28/22 11:58:00 EDT, ; Start Date: 03/28/22 Status: Orderedaspirin 81 mg oral delayed release tablet 81 mg, 1, tablet, By Mouth, Daily, Maintenance, 03/28/22 11:46:00 EDT, ; Start Date: 03/28/22 Status: Orderedcholecalciferol 1000 intl units oral tablet 1 tablet = 1,000 International_Units, By Mouth, Daily, 0 Refills, Maintenance, 09/02/10 11:19:17 EST Start Date: 09/02/10 Status: Orderedfenofibrate 200 mg oral capsule 1 capsule = 200 mg, By Mouth, Daily, 0 Refills, Maintenance, 06/14/15 0:53:53 EDT Start Date: 06/14/15 Status: Orderedgabapentin 100 mg oral capsule 100 mg, Capsule, By Mouth, 03/30/22 9:00:00 EDT Start Date: 03/30/22 Stop Date: 03/30/22 Status: Completedgabapentin 100 mg oral capsule 200 mg, 2, capsule, By Mouth, Daily at bedtime, Maintenance, 03/28/22 11:47:00 EDT, ; Start Date: 03/28/22 Status: Orderedgabapentin 100 mg oral capsule 100 mg, 1, capsule, By Mouth, Daily in AM, Maintenance, 03/28/22 11:47:00 EDT, ; Start Date: 03/28/22 Status: OrderedhydrOXYzine hydrochloride 25 mg oral tablet 1 tablet = 25 mg, By Mouth, Daily at bedtime, PRN as needed, Maintenance, 03/28/22 11:48:00 EDT, Tablet, ; Start Date: 03/28/22 Status: Orderedlactulose 10 gm/15 ml oral syrup 15 mL = 10 Gm, By Mouth, Daily, PRN as needed for constipation, Maintenance, 03/28/22 11:49:00 EDT, Syrup, ; Start Date: 03/28/22 Status: Orderedlevothyroxine 0.1 mg oral tablet 1 tablet, By Mouth, Daily, 0 Refills, Maintenance, 09/02/10 11:20:27 EST, Tablet Start Date: 09/02/10 Status: Orderedloratadine 10 mg oral tablet 10 mg, 1, tablet, By Mouth, Daily, Maintenance, 03/28/22 11:52:00 EDT, ; Start Date: 03/28/22 Status: Orderedlosartan 25 mg oral tablet 25 mg, Tablet, By Mouth, 03/30/22 9:00:00 EDT Start Date: 03/30/22 Stop Date: 03/30/22 Status: Completedmultivitamin Multiple Vitamins oral tablet 1 tablet, By Mouth, Daily, 0 Refills, Maintenance, 09/02/10 11:24:35 EST, Tablet Start Date: 09/02/10 Status: Orderednitroglycerin 0.4 mg sublingual tablet 1 tablet, Sublingual, Every 5 minutes, PRN for chest pain, (not to exceed 3 doses/15 min--if pain persists, seek medical attention), 0 Refills, Maintenance, 09/02/10 11:24:51 EST, Tablet Start Date: 09/02/10 Status: Orderedolanzapine 7.5 mg oral tablet 1 tablet, By Mouth, Daily at bedtime, 0 Refills, Maintenance, 09/02/10 11:25:10 EST, Tablet Start Date: 09/02/10 Status: Orderedolmesartan 40 mg oral tablet 1 tablet = 40 mg, By Mouth, Daily, Maintenance, 03/28/22 11:50:00 EDT, Tablet, ; Start Date: 03/28/22 Status: Orderedomeprazole 40 mg oral enteric coated capsule 1 capsule = 40 mg, By Mouth, Daily, Maintenance, 03/28/22 11:53:00 EDT, EC Capsule, ; Start Date: 03/28/22 Status: Orderedoxybutynin 15 mg oral tablet, extended release 1 tablet = 15 mg, By Mouth, Daily, 0 Refills, Maintenance, 09/02/10 11:25:40 EST, ER Tablet Start Date: 09/02/10 Status: Orderedperphenazine 16 mg oral tablet 16 mg, 1, tablet, By Mouth, 3 times a day, Maintenance, 03/28/22 11:54:00 EDT, ; Start Date: 03/28/22 Status: Orderedperphenazine 2 mg oral tablet 4 mg, 2, tablet, By Mouth, Daily at bedtime, PRN, Refills 0, Maintenance, as needed, 07/03/16 3:16:21 EDT Start Date: 07/03/16 Status: Orderedphenytoin 100 mg oral capsule, extended release See Instructions, MWF: 2 capsules BID Other days: 1 capsule TID, # 120 tablet, 0 Refills, Maintenance, 03/30/22 13:21:00 EDT, ER Capsule, [facility], Partial fill upon patient request if the prescription is for a schedule II opioid drug... Start Date: 03/30/22 Status: Orderedpravastatin 40 mg oral tablet 1 tablet = 40 mg, By Mouth, Daily at bedtime, 0 Refills, Maintenance, 06/14/15 0:46:37 EDT Start Date: 06/14/15 Status: OrderedProAir HFA 90 mcg/inh inhalation aerosol 1 puffs, Inhalation, 4 times a day, PRN as needed for wheezing, Maintenance, 03/28/22 11:49:00 EDT, Aerosol, ; Start Date: 03/28/22 Status: Orderedsucralfate 1 gm oral tablet 1 Gm, 1, tablet, By Mouth, 3 times a day before meals and bedtime, Maintenance, 03/28/22 11:55:00 EDT, ; Start Date: 03/28/22 Status: Orderedtopiramate 100 mg oral tablet 1 tablet = 100 mg, By Mouth, Daily at bedtime, Maintenance, 03/28/22 11:57:00 EDT, Tablet, ; Start Date: 03/28/22 Status: Ordered Vital Signs Most recent to oldest 1 2 3 [Reference Range]: Height 155 cm (03/28/22 4:27 PM) Weight 66.5 kg 66.0 kg 65.5 kg (03/28/22 4:27 PM) (03/28/22 3:00 PM) (03/28/22 10: 16 AM) Oxygen Saturation [94-100 %] 98 % 97 % 96 % (03/30/22 4:00 PM) (03/30/22 12:00 PM) (03/30/22 8: 00 AM) Pulse Rate [55-90 bpm] 71 bpm 66 bpm 71 bpm (03/30/22 4:00 PM) (03/30/22 12:00 PM) (03/30/22 8: 00 AM) Body Mass Index [18.5-24.99] 27.68 *H* (03/28/22 4:27 PM) Blood Pressure [90-138/55-84 126/60 mm Hg 141/74 mm Hg 122 /69 mm Hg mm Hg] (03/30/22 4:00 PM) *H* (03/30/22 8:26 AM) (03/30/22 12:00 PM) Respiratory Rate [16-30 18 br/min 18 br/min 18 br/mi n br/min] (03/30/22 4:00 PM) (03/30/22 12:00 PM) (03/30/22 8: 26 AM) Temperature [96.8-100.4 DegF] 98 DegF 97.1 DegF 97 DegF (03/30/22 4:00 PM) (03/30/22 12:00 PM) (03/30/22 8: 00 AM) Mode of Delivery (Oxygen) Room air Room air Room a ir (03/30/22 4:00 PM) (03/30/22 12:00 PM) (03/30/22 8: 00 AM) Blood pressure sites Arm, left Arm, right Arm, right (03/30/22 4:00 PM) (03/30/22 12:00 PM) (03/30/22 8: 00 AM) Temperature Route Oral Temporal Temporal (03/30/22 4:00 PM) (03/30/22 12:00 PM) (03/30/22 8: 00 AM) Dry Weight 66.5 kg (03/28/22 4:27 PM) Weight Obtained Via Bed scale Bed scale (03/28/22 4:27 PM) (03/28/22 3:00 PM) Social History Social History Type Response Smoking Status Never smoker entered on: 06/13/15 Sex
--- OUTSIDE RECORDS SUMMARY | 2022-06-08 13:23 | XMS_ITS ---
:1950 Author Care Team Providers Name Role Phone ANNEMARIE MONGE MD Primary Care Provider [phone] Allergies Code Code System Name Reaction Severity Status Onset 219428 RxNorm Clozaril ? ? Active ? 842760 RxNorm Depakote ? ? Active ? 6448 RxNorm [place] ? ? Active ? 20291012 RxNorm Tegretol ? ? Active ? Medications Name Status Start Date Stop Date ? ? Daily-Sadaf tablet Active ? Not available TAKE 1 TABLET BY MOUTH EVERY DAY fenofibrate 160 mg tablet Completed ? 2018 fenofibrate micronized 200 mg capsule Active ? Not available Fluzone High-Dose Quad 2020-21 (PF) 240 mcg/0.7 mL IM syringe Ac tive ? Not available PHARMACY ADMINISTERED FreeStyle Lancets 28 gauge Active ? Not a vailable USE TO TEST BLOOD SUGAR THREE TIMES DAILY FreeStyle Lite Meter kit Active ? Not richard ilable DIRECTED FreeStyle Lite Strips Active ? Not availa ble USE ONCE DAILY gabapentin 100 mg capsule Active ? Not av ailable TAKE 1 CAPSULE BY MOUTH THREE TIMES A DAY ketorolac 30 mg/mL (1 mL) injection solution Active ? Not available 30 mg IM administered on scene. Time administered:1454 lactulose 10 gram/15 mL oral solution Active ? Not available TAKE 15ML BY MOUTH DAILY levothyroxine 100 mcg tablet Active ? Not available TAKE 1 TABLET BY MOUTH EVERY DAY IN THE MORNING ON EMPTY STOMAC H levothyroxine 50 mcg tablet Active ? Not available Lidocaine Viscous 2 % mucosal solution Active ? Not available lisinopril 5 mg tablet Completed ? 9 loratadine 10 mg tablet Active ? Not avai lable TAKE 1 TABLET BY MOUTH EVERY DAY lorazepam 0.5 mg tablet Active ? Not avai lable TAKE 1 TABLET BY MOUTH AT BEDTIME AND ONCE A DAY NEEDED lorazepam 1 mg tablet Active ? Not availa ble TAKE 1 TABLET BY MOUTH EVERYDAY AT BEDTIME lorazepam 2 mg tablet Active ? Not availa ble losartan 100 mg tablet Active ? Not avail able TAKE 1 TABLET BY MOUTH EVERY DAY losartan 50 mg tablet Active ? Not availa ble TAKE 1 TABLET BY MOUTH EVERY DAY metformin 500 mg tablet Active ? Not avai lable olanzapine 7.5 mg tablet Active ? Not richard ilable olmesartan 20 mg tablet Active ? Not avai lable TAKE 1 TABLET BY MOUTH EVERY DAY omeprazole 40 mg capsule,delayed release Active ? Not available TAKE 1 CAPSULE BY MOUTH EVERY DAY oxybutynin chloride ER 15 mg tablet,extended release 24 hr Activ e ? Not available TAKE 2 TABLETS BY MOUTH EVERY DAY perphenazine 16 mg tablet Active ? Not av ailable TAKE 1 TABLET BY MOUTH THREE TIMES A DAY perphenazine 4 mg tablet Active ? Not richard ilable phenytoin sodium extended 100 mg capsule Active ? Not available TAKE 2 CAPSULES BY MOUTH TWICE A DAY phenytoin sodium extended 200 mg capsule Completed ? 03/29/2019 pravastatin 40 mg tablet Active ? Not richard ilable TAKE 1 TABLET BY MOUTH AT BEDTIME prednisone 10 mg tablet Active ? Not avai lable Shingrix (PF) 50 mcg/0.5 mL intramuscular suspension, kit Active ? Not available PHARMACY ADMINISTERED sucralfate 1 gram tablet Active ? Not richard ilable TAKE 1 TABLET BY MOUTH 3 TIMES A DAY Tessalon Perles 100 mg capsule Active ? N ot available Take 1 capsule 3 times a day by oral route as needed for 7 days . topiramate 100 mg tablet Active ? Not richard ilable TAKE 1 TABLET BY MOUTH EVERY DAY trazodone 100 mg tablet Active ? Not avai lable TAKE 1 TAB AT BEDTIME TAKE ADDITIONAL 1 /2 OF A TABLET AT BEDTIME NEEDED IF INSOMNIA PERSISTS trazodone 150 mg tablet Active ? Not avai lable TAKE 1 TABLET BY MOUTH EVERY DAY AT BEDTIME NEEDED FOR SLEEP trazodone 50 mg tablet Active ? Not avail able triamcinolone acetonide 0.1 % topical cream Active ? Not available APPLY TO AFFECTED AREA EVERY DAY Vitamin D3 25 mcg (1,000 unit) tablet Active ? Not available TAKE 1 TABLET BY MOUTH ONCE A DAY Problems None recorded. Procedures Notes: cholecystectomy tonsilectomy Results Lab Results Date Name Specimen Result Interpretation Description Value Range Status Address ? 10/09/2020 SARS CoV 2 RNA ABNORMAL Covid-19, ? (neg) Final [facility] (COVID-19), (RT)-PCR Ref harriet QL, analytical laboratory technician-PCR, Labo ratories: [facility] [address] Specimen [place] 08/09/2020 SARS CoV 2 RNA ? Covid-19, ? ? F inal [facility] (COVID-19), [facility] Refer ence QL, analytical laboratory technician-PCR, Labo ratories: [facility] [address] Specimen [place] Past Encounters None recorded. Social History Tobacco Smoking Status Never Smoker Vaccine List None recorded. Plan of Care Reminders Provider Appointments None recorded. ? ? Lab None recorded. ? ? Referral None recorded. ? ? Procedures None recorded. ? ? Surgeries None recorded. ? ? Imaging None recorded. ? ? Vitals 10/09/2020 05:02PM D06 Established Patient Blood Pressure 166/86 mm[Hg] 08/09/2020 07:26PM D06 Established Patient Blood Pressure 142/84 mm[Hg] 03/29/2019 02:05PM D06 New Patient Blood Pressure 136/68 mm[Hg]
--- NOTE | 2022-06-08 13:45 | ED_ITS ---
HPI - General Adult General Chief complaint: Seizure Stated complaint: seizure Time Seen by Provider: 06/08/22 13:44 Source: patient Mode of arrival: ambulatory Limitations: no limitations History of Present Illness HPI narrative: Patient is a 72 year old female presenting to the emergency department today feeling shaky. Patient states that she has a history of seizures and she was concerned she was having a seizure today so she pushed her help pendant. Patient denies any dizziness, lightheadedness, abdominal pain, nausea, vomiting, fever, chills, blurry vision, double vision, loss of vision, chest pain, difficulty breathing, shortness of breath, back pain, night sweats, pain with urination, increased urinary frequency, increased urinary urgency, blood in her urine or stool, syncope or a near syncopal episode, recent trauma or falls, bowel incontinence, bladder incontinence, bowel retention, bladder retention, or any other complaints at this time. Severity: mild Severity scale (1-10): 2 Relieving factors: none Exacerbating factors: none Associated symptoms: denies other symptoms Treatments prior to arrival: none Related Data Home Medications Medication Instructions Recorded Confirmed flu vacc [id number](65yr up)-PF 240 ml IM 08/30/20 05/12/22 mcg/0.7 mL intramuscular syringe gabapentin 100 mg capsule 100 mg PO TID 08/30/20 05/12/22 perphenazine 4 mg tablet 4 mg PO DAILY PRN 08/30/20 05/12/22 varicella-zoster glycoE [id number] IM 08/30/20 05/12/22 adj(PF) 50 mcg/0.5 mL IM susp, kit perphenazine 16 mg tablet 16 mg PO TID 09/08/20 05/12/22 hydroxyzine HCl 25 mg tablet 25 mg PO BEDTIME PRN insomnia 05/11/21 05/12/22 multivitamin with folic acid 400 1 tab PO DAILY 04/18/22 05/12/22 mcg tablet (Daily-Sadaf (with folic acid)) olanzapine 10 mg tablet 10 mg PO BEDTIME 04/18/22 05/12/22 Previous Rx's Medication Instructions Recorded triamcinolone acetonide 0.1 % 1 appl topical DAILY #80 grams 08/30/20 topical cream blood-glucose meter (FreeStyle #1 ea 09/15/20 Lite Meter kit) lancets 28 gauge #100 ea 09/17/20 olanzapine 7.5 mg tablet 7.5 mg PO BEDTIME #90 tabs 11/15/20 acetaminophen 325 mg tablet (Aphen) 650 mg PO Q6H PRN pain #20 tabs 11/20/20 lidocaine 4 % topical patch 1 patch topical Q24H PRN pain #15 11/20/20 ea meclizine 12.5 mg tablet 12.5 mg PO TID PRN dizziness #20 02/19/21 tabs cholecalciferol (vitamin D3) 25 25 mcg PO DAILY #90 tabs 03/29/21 mcg (1,000 unit) tablet levothyroxine 100 mcg tablet 100 mcg PO DAILY #90 tabs 10/04/21 multivitamin 1 tab PO DAILY #90 tabs 10/04/21 omeprazole 40 mg capsule,delayed 40 mg PO DAILY #90 caps 10/04/21 release oxybutynin chloride 15 mg 30 mg PO DAILY #180 tabs 10/04/21 tablet,extended release 24 hr phenytoin sodium extended 100 mg 200 mg PO BID #360 caps 10/04/21 capsule fenofibrate micronized 200 mg 200 mg PO DAILY #90 caps 10/18/21 capsule blood sugar diagnostic (FreeStyle #100 ea 10/19/21 Lite Strips) loratadine 10 mg tablet 10 mg PO DAILY #90 tabs 01/17/22 albuterol sulfate 90 mcg/actuation 1 inh inhalation QID PRN shortness 02/14/22 aerosol inhaler of breath or wheezing #6.7 grams olmesartan 40 mg tablet 40 mg PO DAILY #90 tabs 02/24/22 sucralfate 1 gram tablet 1 g PO TID #270 tabs 02/24/22 topiramate 100 mg tablet 100 mg PO DAILY #90 tabs 02/24/22 pravastatin 40 mg tablet 40 mg PO BEDTIME #90 tabs 04/10/22 lactulose 10 gram/15 mL oral 20 g (30 mL) PO DAILY #946 mL 04/11/22 solution docusate sodium 100 mg capsule 100 mg PO BID #180 caps 05/05/22 (Colace) lancets 28 gauge (FreeStyle #300 ea 05/23/22 Lancets) Allergies Allergy/AdvReac Type Severity Reaction Status Date / Time cyclobenzaprine Allergy Unknown UNKNOWN Verified 05/12/22 09:14 [From FLEXERIL] [place] Carbonate Allergy Unknown unknown Verified 05/12/22 09:14 quinine [Quinine] Allergy Unknown UNSURE Verified 05/12/22 09:14 risperidone [From RISPERDAL] Allergy Unknown UNKNOWN Verified 05/12/22 09:14 Sulfa (Sulfonamide Allergy Unknown UNKNOWN Verified 05/12/22 09:14 Antibiotics) [SULFA (SULFONAMIDE ANTIBIOTICS)] carbamazepine [From Tegretol] AdvReac Unknown INCREASE Verified 05/12/22 09:14 WBC/DIARRHEA clozapine [From Clozaril] AdvReac Unknown FEVER Verified 05/12/22 09:14 divalproex sodium AdvReac Unknown DIARRHEA Verified 05/12/22 09:14 [From Depakote] lithium [[place]] AdvReac Unknown DIARRHEA/TO Verified 05/12/22 09:14 XIC quetiapine [From Seroquel] AdvReac Unknown INCREASE Verified 05/12/22 09:14 HALLUCINATION Review of Systems Constitutional: Constitutional: Reports no additional constitutional complaints, Denies chills, Denies fever(s) and Denies night sweats Eyes: Eyes: Reports no additional eye complaints, Denies blurry vision, Denies change in vision, Denies diplopia, Denies eye discharge, Denies loss of vision and Denies eye pain ENT: Denies dizziness Cardiovascular: Cardiovascular: Reports no additional cardiovascular complaints, Denies chest pain, Denies lightheadedness, Denies Loss of Consciousness and Denies dyspnea Respiratory: Respiratory: Reports no additional respiratory complaints and Denies dyspnea Gastrointestinal: Gastrointestinal: Reports no additional gastrointestinal complaints, Denies abdominal pain, Denies melena, Denies hematochezia, Denies change in bowel habits and Denies change in stool character Genitourinary: Genitourinary: Denies hematuria, Denies urinary frequency, Denies dysuria, Denies urinary incontinence, Denies urinary hesitancy and Denies urinary urgency Musculoskeletal: Musculoskeletal: Reports no additional musculoskeletal complaints, Denies numbness and Denies tingling Neurologic: Denies dizziness, Denies loss of vision, Denies numbness and Denies tingling Psychiatric: Psychiatric: Reports no additional psychiatric complaints Endocrine: Endocrine: Reports no additional endocrine complaints Hematologic/Lymphatic: Hematologic/Lymphatic: Reports no additional hematologic/lymphatic complaints Allergic/Immunologic: Allergic/Immunologic: Reports no additional allergic/immunologic complaints [facility] Past Medical History Attestation statement: The following information was validated with the patient. Source: old records reviewed Medical History (Updated 06/08/22 @ 16:11 by MALGORZATA Graham) Bipolar 1 disorder Depression HTN (hypertension) Hyperlipidemia Hypothyroid Lower back pain Surgical History History of bladder suspension procedure Hx of cholecystectomy Family History Family History Father Lung cancer Mother Lung cancer Daughter Uterine cancer Daughter Skin cancer Brother Lung cancer Social History Social History Housing: Apartment Alcohol intake: never Patient Tobacco Use Status: Never used Tobacco e-Cigarette/Vaping Use: Never Used Second Hand Smoke Exposure: No Use of substances other than those prescribed or required for medical reasons: No Advance Directives: No Advance Directives Information Provided: No service: No Current occupational status: other Current occupational exposures/hazards: No Cognitive needs: No Hearing needs: No Vision needs: Yes Physical Exam ED Vital Signs: Vital Signs - 24 hr 06/08/22 12:59 06/08/22 13:19 06/08/22 15:02 Temperature 98.4 F 97.9 F Pulse Rate 69 70 58 Respiratory Rate 18 18 15 Blood Pressure 119/59 L 107/55 L Pulse Oximetry 97 95 94 Oxygen Delivery Method Room Air Room Air Room Air 06/08/22 15:54 Temperature 98.4 F Pulse Rate 59 Respiratory Rate 12 Blood Pressure 136/61 Pulse Oximetry 98 Oxygen Delivery Method Room Air BMI result Body Mass Index 27.9 Const General: cooperative, no acute distress, alert and awake Nutritional Appearance: well nourished Orientation/consciousness: patient oriented x3 Limitations: no limitations HENMT Head: Yes normal to inspection and Yes atraumatic Ears: hearing grossly normal bilaterally and external ears normal General nose exam: Normal external nose present, no nasal discharge noted and no epistaxis Face and sinus: Yes normal facial exam, No abrasion and No laceration Mouth: Normal oral and palatal mucosa present, no drooling and no muffled voice Eyes General: appearance normal, both eyes and all related structures Periorbital: periorbital findings normal Eyelids: Yes eyelids normal Conjunctivae: conjunctivae normal Pupils: Equal, round and reactive pupils present EOM: EOMs intact bilaterally Neck Neck: Yes normal visual inspection, Yes full ROM and Yes no lymphadenopathy Chest Chest palpation & inspection: normal inspection of the chest Resp Effort & Inspection: normal respiratory effort and able to speak in complete sentences Auscultation: clear to auscultation bilaterally Cardio Rate: regular rate Rhythm: regular rhythm GI Inspection: Yes normal to inspection Neuro General: patient oriented x3 and moves all extremities Cranial nerves: Yes Equal, round and reactive pupils present Cognition (Neuro): normal cognition Motor exam (neuro): 5/5 motor strength present throughout Sensory Exam: Normal double simultaneous stimulation for sensation Coordination: [id number] test normal Extrem General: Yes normal to inspection, Yes full ROM and Yes capillary refill normal Psych Appearance: grossly normal Mental Status: mental status grossly normal Affect: normal affect Attitude: cooperative Thought process: Normal thought process present Thought content: Normal thought content present Insight: Good insight present (Psych) Medical Decision Making MDM Narrative Medical decision making narrative: Patient is a 72 year old female presenting to the emergency department today after an episode of being shaky. Patient's physical exam was unremarkable. Patient's blood work showed a mild decrease in sodium of 131 but was otherwise unremarkable. Patient's EKG was unremarkable. Patient's chest x-ray and head CT showed no acute process. I explained my physical exam findings as well as all te st results to the patient. I answered all questions asked by the patient. Patient received IV fluids while in the department. I stressed the importance of the patient taking her medication as prescribed. I stressed the importance of the patient following up with her primary care provider. I stressed the importance of the patient returning to the emergency department immediately if her symptoms were to worsen or if she were to develop any dizziness, shortness of breath, difficulty breathing, chest pain, blurry vision, loss of vision, nausea, vomiting, abdominal pain, fever, chills, back pain, or any other complaints. Patient verbalized agreement and understanding with this treatment plan and discharge. Medical Records Medical records reviewed: Yes I reviewed the patient's medical records. Lab Data Lab results reviewed: Yes I reviewed the patient's lab results. Result diagrams: 06/08/22 14:58 06/08/22 14:58 Labs: Lab Results 06/08/22 06/08/22 06/08/22 Range/Units 14:58 14:58 14:58 WBC 9.5 (4.8-10.8) X10*3/uL RBC 3.76 L (4.20-5.50) X10*6/uL Hgb 11.1 L (12.0-16.0) g/dl Hct 33.2 L (37.0-47.0) % MCV 88.3 (80.0-98.0) fL MCH 29.5 (27.0-33.0) pg MCHC 33.4 (31.0-35.0) g/dl RDW 13.3 (11.0-16.0) % Plt Count 355 (160-400) X10*3/uL MPV 9.1 L (9.4-12.3) fL Immature Gran % (Auto) 0.9 H (0.0-0.4) % Neut % (Auto) 57.2 (45-73) % Lymph % (Auto) 24.9 (20-40) % [place] % (Auto) 11.8 H (2-11) % Eos % (Auto) 4.8 H (0-4) % Baso % (Auto) 0.4 (0-2) % Lymph # (Auto) 2.4 (1.2-4.9) X10*3/uL [place] # (Auto) 1.1 (0.1-1.2) X10*3/uL Eos # (Auto) 0.5 H (0.0-0.4) X10*3/uL Baso # (Auto) 0.0 (0.0-0.2) X10*3/uL Abs Immat Gran (auto) 0.09 H (0.00-0.03) X10*3/uL Absolute Neuts (auto) 5.4 (2.0-8.3) x10*3/uL Absolute Nucleated RBC 0.000 (0.0-0.012) X10*3/uL Nucleated RBC % (auto) 0.0 (0.0-0.2) /100WBC VBG pH (7.32-7.43) VBG pCO2 mmHg VBG pO2 mmHg VBG HCO3 (22-26) mmol/L VBG O2 Saturation % VBG Base Excess mmol/L Sodium 131 L (135-145) mmol/L Potassium 4.5 (3.3-5.1) mmol/L Chloride 97 (96-108) mmol/L Carbon Dioxide 25 (22-29) mmol/L Anion Gap 14 (12-20) BUN 18 H (9-16) mg/dL Creatinine 0.97 (0.5-1.4) mg/dL Estim Creat Clear Calc 44.5 Estimated GFR 56 Random Glucose 97 (60-115) mg/dL Calcium 9.7 (8.4-10.2) mg/dL Total Bilirubin 0.2 (0.0-1.0) mg/dL AST 22 (5-31) U/L ALT 17 (0-31) U/L Alkaline Phosphatase 65 (39-117) U/L Ammonia 42 (13-55) umol/L Total Protein 7.7 (6.5-8.0) g/dL Albumin 4.6 (3.5-5.0) g/dL 06/08/22 Range/Units 15:04 WBC (4.8-10.8) X10*3/uL RBC (4.20-5.50) X10*6/uL Hgb (12.0-16.0) g/dl Hct (37.0-47.0) % MCV (80.0-98.0) fL MCH (27.0-33.0) pg MCHC (31.0-35.0) g/dl RDW (11.0-16.0) % Plt Count (160-400) X10*3/uL MPV (9.4-12.3) fL Immature Gran % (Auto) (0.0-0.4) % Neut % (Auto) (45-73) % Lymph % (Auto) (20-40) % [place] % (Auto) (2-11) % Eos % (Auto) (0-4) % Baso % (Auto) (0-2) % Lymph # (Auto) (1.2-4.9) X10*3/uL [place] # (Auto) (0.1-1.2) X10*3/uL Eos # (Auto) (0.0-0.4) X10*3/uL Baso # (Auto) (0.0-0.2) X10*3/uL Abs Immat Gran (auto) (0.00-0.03) X10*3/uL Absolute Neuts (auto) (2.0-8.3) x10*3/uL Absolute Nucleated RBC (0.0-0.012) X10*3/uL Nucleated RBC % (auto) (0.0-0.2) /100WBC VBG pH 7.36 (7.32-7.43) VBG pCO2 41 mmHg VBG pO2 39 mmHg VBG HCO3 24 (22-26) mmol/L VBG O2 Saturation 60.0 % VBG Base Excess -1.0 mmol/L Sodium (135-145) mmol/L Potassium (3.3-5.1) mmol/L Chloride (96-108) mmol/L Carbon Dioxide (22-29) mmol/L Anion Gap (12-20) BUN (9-16) mg/dL Creatinine (0.5-1.4) mg/dL Estim Creat Clear Calc Estimated GFR Random Glucose (60-115) mg/dL Calcium (8.4-10.2) mg/dL Total Bilirubin (0.0-1.0) mg/dL AST (5-31) U/L ALT (0-31) U/L Alkaline Phosphatase (39-117) U/L Ammonia (13-55) umol/L Total Protein (6.5-8.0) g/dL Albumin (3.5-5.0) g/dL Imaging Data Chest x-ray: Attestation: I personally reviewed and interpreted this imaging study as follows: My impression: No acute process. Radiologist's impression: EXAMINATION: XR CHEST CLINICAL INFORMATION: Seizure COMPARISON: Chest x-ray 02/19/2022 TECHNIQUE: 2 views of the chest were obtained. FINDINGS: The lungs are clear. No airspace consolidation, pleural effusion, or pneumothorax. The cardiomediastinal silhouette is within normal limits. No acute osseous injury. 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 XR/XR chest 2V IMPRESSION: ? 1. No acute pulmonary process. Dictated By: Houston Oneill Signed By: Electronically signed by Houston?Nino 06/08/[id number] scan - head: Attestation: I personally reviewed and interpreted this imaging study as follows: My impression: No acute process. Radiologist's impression: EXAMINATION: CT HEAD WITHOUT CONTRAST CLINICAL INFORMATION: Seizure? COMPARISON: Head CT from 02/19/2021 TECHNIQUE: Contiguous axial imaging was performed from the skull base to vertex without intravenous administration of contrast. This CT examination was performed using dose optimization techniques as appropriate, variously including the following: *Automated exposure control *Adjustment of mA and/or kV according to patient size (this includes techniques or standardized protocols for targeted exams where dose is matched to indication/reason for exam; i.e. extremities or head) *Use of iterative reconstruction technique DLP: 711 mGy-cm FINDINGS: No acute finding compared to 02/19/2021. There is atherosclerotic calcification of cavernous carotid arteries. Again noted is patchy hypoattenuation within the supratentorial white matter. The findings are consistent with sequela of chronic, moderate microangiopathy. The langford-white matter differentiation is well preserved. No evidence of an acute major vascular territory infarction. No intracranial hemorrhage, extra-axial fluid collection, focal mass effect or midline shift. The ventricles have normal size and configuration; no hydrocephalus. 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 The brainstem and cerebellum have a normal appearance. The cerebellar tonsils are in normal position. The calvarium is intact. The visualized paranasal sinuses, mastoid air cells and middle ear cavities are well aerated. The orbits and globes are unremarkable. Chronic osteoarthritis of the temporomandibular joints. CT/CT head/brain wo IV con IMPRESSION: *? No intracranial mass, hemorrhage or other acute intracranial pathology. *? Chronic small vessel ischemic changes of the supratentorial white matter. Dictated By: Rojas Rodriguez MD Signed By: Electronically signed by Rojas Rodriguez MD 06/08/22 [id number] ECG Data Attestation: I personally reviewed and interpreted this ECG as follows: Prior ECG tracings: available for review Interpretation: Vent. Rate: 058 BPM ? ? Atrial Rate: 058 BPM P-R Int: 226 ms? QRS Dur: 092 ms QT Int: 420 ms ? ? ? P-R-T Axes: 017 -24 076 degrees QTc Int: 412 ms ? Sinus bradycardia with 1st degree A-V block Cannot rule out Anterior infarct , age undetermined Abnormal ECG When compared with ECG of 19-FEB-2021 17:16, No significant change was found DD/ 1422 Discharge Plan Discharge Clinical Impression: Hyponatremia Patient Disposition: Home, Self-Care Instructions: Hyponatremia (ED) Additional Instructions: Follow up with your primary care provider. Return to the emergency department immediately if your symptoms worsen or if you develop any dizziness, shortness of breath, difficulty breathing, chest pain, blurry vision, loss of vision, nausea, vomiting, abdominal pain, fever, chills, back pain, or any other complaints. Prescriptions: No Action (DME) blood-glucose meter [FreeStyle Lite Meter] Kit See Rx Instructions .ROUTE .MEDSUPPLY Qty: 1 0RF Rx Instructions: As directed (DME) lancets 28 gauge misc See Rx Instructions topical QID Qty: 100 4RF Rx Instructions: test three times a day olanzapine 7.5 mg tablet 7.5 mg PO BEDTIME Qty: 90 3RF cholecalciferol (vitamin D3) 25 mcg (1,000 unit) tablet 25 mcg PO DAILY Qty: 90 3RF oxybutynin chloride 15 mg tablet extended release 24 hr 30 mg PO DAILY Qty: 180 3RF phenytoin sodium extended 100 mg capsule 200 mg PO BID Qty: 360 3RF multivitamin Tablet 1 tab PO DAILY Qty: 90 3RF omeprazole 40 mg capsule,delayed release(DR/EC) 40 mg PO DAILY Qty: 90 3RF levothyroxine 100 mcg tablet 100 mcg PO DAILY Qty: 90 3RF fenofibrate micronized 200 mg capsule 200 mg PO DAILY Qty: 90 3RF (DME) FreeStyle Lite Strips Strip See Rx Instructions .Route Qty: 100 3RF Rx Instructions: Test blood sugars daily loratadine 10 mg tablet 10 mg PO DAILY Qty: 90 3RF olmesartan 40 mg tablet 40 mg PO DAILY Qty: 90 1RF topiramate 100 mg tablet 100 mg PO DAILY Qty: 90 1RF sucralfate 1 gram tablet 1 g PO TID Qty: 270 1RF pravastatin 40 mg tablet 40 mg PO BEDTIME Qty: 90 3RF lactulose 10 gram/15 mL solution 20 g PO DAILY Qty: 946 3RF docusate sodium [Colace] 100 mg capsule 100 mg PO BID Qty: 180 1RF (DME) lancets [FreeStyle Lancets] 28 gauge misc See Rx Instructions .ROUTE .MEDSUPPLY Qty: 300 3RF Rx Instructions: use to test blood sugar three times daily lidocaine 4 % adhesive patch,medicated 1 patch topical Q24H PRN (Reason: pain) Qty: 15 0RF Rx Instructions: may leave on for up to 12 hrs acetaminophen [Aphen] 325 mg tablet 650 mg PO Q6H PRN (Reason: pain) Qty: 20 0RF meclizine 12.5 mg tablet 12.5 mg PO TID PRN (Reason: dizziness) Qty: 20 0RF hydroxyzine HCl 25 mg tablet 25 mg PO BEDTIME PRN (Reason: insomnia) gabapentin 100 mg capsule 100 mg PO TID perphenazine 4 mg tablet 4 mg PO DAILY PRN Shingrix (PF) 50 mcg/0.5 mL suspension for reconstitution IM Fluzone HighDose Quad 20-21 PF 240 mcg/0.7 mL syringe IM triamcinolone acetonide 0.1 % cream 1 appl topical DAILY Qty: 80 2RF perphenazine 16 mg tablet 16 mg PO TID albuterol sulfate 90 mcg/actuation HFA aerosol inhaler 1 inh inhalation QID PRN (Reason: shortness of breath or wheezing) Qty: 6.7 1RF olanzapine 10 mg tablet 10 mg PO BEDTIME multivitamin with folic acid [Daily-Sadaf (with folic acid)] 400 mcg tablet 1 tab PO DAILY Referrals: Carmelina Obregon MD [Primary Care Provider] - Print Language: [place]
--- NOTE | 2022-06-08 13:50 | ECG_ITS ---
Test Reason : Seizure Blood Pressure : / mmHG Vent. Rate : 058 BPM Atrial Rate : 058 BPM P-R Int : 226 ms QRS Dur : 092 ms QT Int : 420 ms P-R-T Axes : 017 -24 076 degrees QTc Int : 412 ms Sinus bradycardia with 1st degree A-V block Cannot rule out Anterior infarct , age undetermined Abnormal ECG When compared with ECG of 19-FEB-2021 17:16, No significant change was found Referred By: Deandra Price Electronically Signed By:KP JACKMAN
[2022-06-08 15:02] VITALS: BP 107/55; PULSE 58; RESP 15; TEMP 36.6; O2SAT 94
[2022-06-08 15:03] LABS: MANUAL DIFF FLAG NO
[2022-06-08 15:05] LABS: Basophils Percent Auto 0.4 % (0-2); Eosinophils Absolute Auto 0.5 X10*3/uL (0.0-0.4); Eosinophils Percent Auto 4.8 % (0-4); Hematocrit 33.2 % (37.0-47.0); Hemoglobin 11.1 g/dl (12.0-16.0); Imm Gran Abs Auto 0.09 X10*3/uL (0.00-0.03); Imm Gran Pct Auto 0.9 % (0.0-0.4); Lymphocytes Absolute Auto 2.4 X10*3/uL (1.2-4.9); Lymphocytes Percent Auto 24.9 % (20-40); Mean Corpuscular HGB Conc 33.4 g/dl (31.0-35.0); Mean Corpuscular Hemoglobin 29.5 pg (27.0-33.0); Mean Corpuscular Volume 88.3 fL (80.0-98.0); Mean Platelet Volume 9.1 fL (9.4-12.3); Monocytes Absolute Auto 1.1 X10*3/uL (0.1-1.2); Monocytes Percent Auto 11.8 % (2-11); Neutrophils Absolute Auto 5.4 x10*3/uL (2.0-8.3); Neutrophils Percent Auto 57.2 % (45-73); Platelet Count 355 X10*3/uL (160-400); Red Blood Count 3.76 X10*6/uL (4.20-5.50); Red Cell Distribution Width 13.3 % (11.0-16.0); White Blood Count 9.5 X10*3/uL (4.8-10.8)
[2022-06-08 15:10] LABS: VBG HCO3 24 mmol/L (22-26); VBG pCO2 41 mmHg; VBG pH 7.36 (7.32-7.43); VBG pO2 39 mmHg
[2022-06-08 15:11] LABS: Venous Blood Gas Refer to POC result
[2022-06-08 15:19] LABS: Ammonia 42 umol/L (13-55)
[2022-06-08 15:28] LABS: Alanine Aminotransferase 17 U/L (0-31); Albumin Level 4.6 g/dL (3.5-5.0); Alkaline Phosphatase 65 U/L (39-117); Anion Gap 14 (12-20); Aspartate Amino Transferase 22 U/L (5-31); Bilirubin Total 0.2 mg/dL (0.0-1.0); Blood Urea Nitrogen 18 mg/dL (9-16); Calcium 9.7 mg/dL (8.4-10.2); Carbon Dioxide 25 mmol/L (22-29); Chloride 97 mmol/L (96-108); Creatinine Clr Calc Pharmacy 44.5; Estimated Glomerular Filt Rate 56; Glucose Random 97 mg/dL (60-115); Potassium 4.5 mmol/L (3.3-5.1); Sodium 131 mmol/L (135-145); Total Protein 7.7 g/dL (6.5-8.0)
[2022-06-08 15:54] VITALS: BP 136/61; PULSE 59; RESP 12; TEMP 36.9; O2SAT 98
[2022-06-08] MEDS: 0.9 % Sodium Chloride 1,000 ML 999 ML IV (15:55)
== END 2022-06-08 17:00 | disposition home or self-care (01) ==
PROVIDERS: Physician Assistant Medical; Emergency Provider Emergency Medicine Emergency Medical Services; PCP Internal Medicine
DX: E87.1 Hypo-osmolality and hyponatremia (principal); R25.1 Tremor, unspecified; I10 Essential (primary) hypertension; E78.5 Hyperlipidemia, unspecified; Z79.899 Other long term (current) drug therapy
CPT/HCPCS: 36415; 70450; 71046; 80048; 80053; 80185; 82140; 82803; 85025; 93005; 96360; 99284

== ENCOUNTER 2022-08-17 10:37 | Outpatient (REF) | payer MEDICARE, MEDICAID, SELFPAY ==
[2022-08-17 14:14] LABS: Anion Gap 16 (12-20); Blood Urea Nitrogen 14 mg/dL (9-16); Calcium 9.9 mg/dL (8.4-10.2); Carbon Dioxide 25 mmol/L (22-29); Chloride 101 mmol/L (96-108); Estimated Glomerular Filt Rate > 60; Glucose Random 119 mg/dL (60-115); Potassium 3.9 mmol/L (3.3-5.1); Sodium 138 mmol/L (135-145)
== END 2022-08-17 10:38 | disposition home or self-care (01) ==
LOC: HO.HMGCLDS 10:37
PROVIDERS: PCP Internal Medicine; Visit Provider Internal Medicine
DX: E11.9 Type 2 diabetes mellitus without complications (principal); E78.5 Hyperlipidemia, unspecified; E87.1 Hypo-osmolality and hyponatremia; I10 Essential (primary) hypertension; E03.9 Hypothyroidism, unspecified
CPT/HCPCS: 36415; 80048

== ENCOUNTER 2022-11-06 19:43 | Emergency (ER) | payer MEDICARE, MEDICAID, SELFPAY ==
--- NOTE | 2022-11-06 | ECG_ITS ---
Test Reason : weakness Blood Pressure : / mmHG Vent. Rate : 063 BPM Atrial Rate : 063 BPM P-R Int : 232 ms QRS Dur : 088 ms QT Int : 440 ms P-R-T Axes : 022 -44 055 degrees QTc Int : 450 ms Sinus rhythm with 1st degree A-V block Left axis deviation Possible Anterior infarct (cited on or before 08-JUN-2022) Abnormal ECG When compared with ECG of 08-JUN-2022 14:22, No significant change was found Referred By: Generic ED Physician Electronically Signed By:BERNA GUTIERREZ
--- NOTE | ~2022-11-06 | XR_ITS ---
EXAMINATION: XR CHEST CLINICAL INFORMATION: Cough COMPARISON: Chest x-ray 06/08/2022 TECHNIQUE: 2 views of the chest were obtained. FINDINGS: Lungs are clear. No pulmonary vascular congestion. There is no pleural effusion. The heart size is normal. The cardiac and mediastinal contours are normal. There are multilevel degenerative changes of dorsal spine. XR/XR chest 2V IMPRESSION: Unremarkable examination.
[2022-11-06 19:50] VITALS: BP 201/109; PULSE 64; O2SAT 96
[2022-11-06 19:55] VITALS: BP 173/83; PULSE 61; RESP 16; TEMP 36; O2SAT 96; BMI 28.7
[2022-11-06 20:13] VITALS: PULSE 64; O2SAT 96
--- NOTE | 2022-11-06 20:20 | PC.NURSE ---
pt a&ox3, hypertensive, other vss, urine sample obtained, tech at bedside collecting labs. pt pending ED provider, no new orders at this time.
[2022-11-06 20:49] LABS: MANUAL DIFF FLAG NO
[2022-11-06 20:50] LABS: Basophils Absolute Auto 0.1 X10*3/uL (0.0-0.2); Basophils Percent Auto 0.7 % (0-2); Eosinophils Absolute Auto 0.7 X10*3/uL (0.0-0.4); Eosinophils Percent Auto 10.3 % (0-4); Hematocrit 39.3 % (37.0-47.0); Hemoglobin 12.7 g/dl (12.0-16.0); Imm Gran Abs Auto 0.03 X10*3/uL (0.00-0.03); Imm Gran Pct Auto 0.4 % (0.0-0.4); Lymphocytes Absolute Auto 2.6 X10*3/uL (1.2-4.9); Lymphocytes Percent Auto 37.4 % (20-40); Mean Corpuscular HGB Conc 32.3 g/dl (31.0-35.0); Mean Corpuscular Hemoglobin 27.3 pg (27.0-33.0); Mean Corpuscular Volume 84.3 fL (80.0-98.0); Mean Platelet Volume 10.1 fL (9.4-12.3); Monocytes Absolute Auto 0.8 X10*3/uL (0.1-1.2); Monocytes Percent Auto 11.7 % (2-11); Neutrophils Absolute Auto 2.8 x10*3/uL (2.0-8.3); Neutrophils Percent Auto 39.5 % (45-73); Platelet Count 328 X10*3/uL (160-400); Red Blood Count 4.66 X10*6/uL (4.20-5.50); Red Cell Distribution Width 13.2 % (11.0-16.0)
[2022-11-06 20:51] LABS: Appearance Urine Clear; Color Urine Yellow; Glucose Urine UA Negative (Negative); Leukocyte Esterase Urine Trace (Negative); Nitrite Urine Negative (Negative); Specific Gravity - Urine <= 1.005 (1.005-1.025); UMIC TRIGGER UACC YES; Urine Blood Negative (Negative); Urine Ketones Negative (Negative); Urine Protein Negative (Neg-Trace)
[2022-11-06 20:56] LABS: Bacteria Urine None Seen (None Seen); Hyaline Casts Urine 0-2 /LPF (0-2); RBC Urine 0-2 /HPF (0-2); Squamous Epithelial Cell Urine 0-2 /HPF (0-2); WBC Urine 0-5 /HPF (0-5)
[2022-11-06 21:08] LABS: Alanine Aminotransferase 16 U/L (0-31); Albumin Level 4.5 g/dL (3.5-5.0); Alkaline Phosphatase 72 U/L (39-117); Anion Gap 13 (12-20); Aspartate Amino Transferase 21 U/L (5-31); Bilirubin Total 0.3 mg/dL (0.0-1.0); Blood Urea Nitrogen 14 mg/dL (9-16); Calcium 9.6 mg/dL (8.4-10.2); Carbon Dioxide 26 mmol/L (22-29); Chloride 105 mmol/L (96-108); Creatinine Clr Calc Pharmacy 62.6; Estimated Glomerular Filt Rate > 60; Glucose Random 107 mg/dL (60-115); Sodium 140 mmol/L (135-145); Total Protein 7.4 g/dL (6.5-8.0)
--- NOTE | 2022-11-06 21:23 | ED.URI ---
HPI - URI/Sore Throat General Chief Complaint: Upper Respiratory Symptoms Stated Complaint: headache and hypertensive Time Seen by Provider: 11/06/22 21:03 Source: patient Mode of arrival: EMS History of Present Illness HPI Narrative: 72-year-old female who lives at home by herself and occasional use a walker when she is outside of her home, presents via EMS for complaints of headaches, elevated blood pressure that she states she has continued to take her blood pressure medication as scheduled. Patient denies any falls, denies any blood thinners, but has complaints of shortness of breath but denies any GI or symptoms. Related Data Home Medications Medication Instructions Recorded Confirmed flu vacc [id number](65yr up)-PF 240 ml IM 08/30/20 05/12/22 mcg/0.7 mL intramuscular syringe gabapentin 100 mg capsule 100 mg PO TID 08/30/20 05/12/22 perphenazine 4 mg tablet 4 mg PO DAILY PRN 08/30/20 05/12/22 varicella-zoster glycoE [id number] IM 08/30/20 05/12/22 adj(PF) 50 mcg/0.5 mL IM susp, kit perphenazine 16 mg tablet 16 mg PO TID 09/08/20 05/12/22 hydroxyzine HCl 25 mg tablet 25 mg PO BEDTIME PRN insomnia 05/11/21 05/12/22 multivitamin with folic acid 400 1 tab PO DAILY 04/18/22 05/12/22 mcg tablet (Daily-Sadaf (with folic acid)) olanzapine 10 mg tablet 10 mg PO BEDTIME 04/18/22 05/12/22 Previous Rx's Medication Instructions Recorded triamcinolone acetonide 0.1 % 1 appl topical DAILY #80 grams 08/30/20 topical cream blood-glucose meter (FreeStyle #1 ea 09/15/20 Lite Meter kit) lancets 28 gauge #100 ea 09/17/20 olanzapine 7.5 mg tablet 7.5 mg PO BEDTIME #90 tabs 11/15/20 acetaminophen 325 mg tablet (Aphen) 650 mg PO Q6H PRN pain #20 tabs 11/20/20 lidocaine 4 % topical patch 1 patch topical Q24H PRN pain #15 11/20/20 ea meclizine 12.5 mg tablet 12.5 mg PO TID PRN dizziness #20 02/19/21 tabs cholecalciferol (vitamin D3) 25 25 mcg PO DAILY #90 tabs 03/29/21 mcg (1,000 unit) tablet levothyroxine 100 mcg tablet 100 mcg PO DAILY #90 tabs 10/04/21 multivitamin 1 tab PO DAILY #90 tabs 10/04/21 omeprazole 40 mg capsule,delayed 40 mg PO DAILY #90 caps 10/04/21 release oxybutynin chloride 15 mg 30 mg PO DAILY #180 tabs 10/04/21 tablet,extended release 24 hr fenofibrate micronized 200 mg 200 mg PO DAILY #90 caps 10/18/21 capsule blood sugar diagnostic (FreeStyle #100 ea 10/19/21 Lite Strips) loratadine 10 mg tablet 10 mg PO DAILY #90 tabs 01/17/22 albuterol sulfate 90 mcg/actuation 1 inh inhalation QID PRN shortness 02/14/22 aerosol inhaler of breath or wheezing #6.7 grams olmesartan 40 mg tablet 40 mg PO DAILY #90 tabs 02/24/22 sucralfate 1 gram tablet 1 g PO TID #270 tabs 02/24/22 topiramate 100 mg tablet 100 mg PO DAILY #90 tabs 02/24/22 pravastatin 40 mg tablet 40 mg PO BEDTIME #90 tabs 04/10/22 docusate sodium 100 mg capsule 100 mg PO BID #180 caps 05/05/22 (Colace) lactulose 10 gram/15 mL oral 20 g (30 mL) PO DAILY #946 mL 07/04/22 solution lancets 28 gauge (FreeStyle #100 ea 08/10/22 Lancets) walker #1 ea 09/08/22 phenytoin sodium extended 100 mg 200 mg PO BID #360 caps 10/13/22 capsule Allergies Allergy/AdvReac Type Severity Reaction Status Date / Time cyclobenzaprine Allergy Unknown Unknown Verified 11/06/22 19:53 [From Flexeril] [place] Carbonate Allergy Unknown unknown Verified 11/06/22 19:53 quinine [Quinine] Allergy Unknown UNSURE Verified 11/06/22 19:53 risperidone [From Risperdal] Allergy Unknown Unknown Verified 11/06/22 19:53 Sulfa (Sulfonamide Allergy Unknown UNKNOWN Verified 11/06/22 19:53 Antibiotics) [SULFA (SULFONAMIDE ANTIBIOTICS)] carbamazepine [From Tegretol] AdvReac Unknown Increased Verified 11/06/22 19:53 WBC, Diarrhea clozapine [From Clozaril] AdvReac Unknown Fever Verified 11/06/22 19:53 divalproex sodium AdvReac Unknown Diarrhea Verified 11/06/22 19:53 [From Depakote] lithium [[place]] AdvReac Unknown DIARRHEA/TO Verified 11/06/22 19:53 XIC quetiapine [From Seroquel] AdvReac Unknown Increased Verified 11/06/22 19:53 hallucinations Review of Systems Review of Systems: Pertinent positives and negatives as stated in HPI [facility] Past Medical History Source: nursing notes reviewed Medical History Bipolar 1 disorder Depression HTN (hypertension) Hyperlipidemia Hypothyroid Lower back pain Surgical History History of bladder suspension procedure Hx of cholecystectomy Family History Family History Father Lung cancer Mother Lung cancer Daughter Uterine cancer Daughter Skin cancer Brother Lung cancer Social History Social History Housing: Apartment Alcohol intake: never Patient Tobacco Use Status: Never used Tobacco Smoked in Last 30 Days: No e-Cigarette/Vaping Use: Never Used Second Hand Smoke Exposure: No Use of substances other than those prescribed or required for medical reasons: No Advance Directives: No Advance Directives Information Provided: Yes service: No Current occupational status: other Current occupational exposures/hazards: No Cognitive needs: No Hearing needs: No Vision needs: Yes Physical Exam Vital Signs: Vital Signs: Last Vital Signs Temp 96.8 F 11/06/22 19:55 Pulse 62 11/06/22 22:59 Resp 16 11/06/22 22:59 BP 187/85 H 11/06/22 22:59 Pulse Ox 96 11/06/22 22:59 O2 Del Method 11/06/22 22:59 BMI result Body Mass Index 28.7 VITAL SIGNS: Reviewed. GENERAL: Well developed, well nourished, in no acute distress. HEAD: Normocephalic/atraumatic EYES: PERRLA, EOMI, no nystagmus EARS: Ext canals without abnormality, TMs non-bulging and non-erythematous NOSE: Nares patent bilateral OROPHARYNX: no oral lesions noted, posterior pharynx clear NECK: Supple, no adenopathy LUNGS: Normal breath sounds. No adventitious sounds or accessory muscle use. SpO2<96> CARDIOVASCULAR: Regular rate and rhythm without noted murmurs, no JVD or lower extremity edema. ABDOMEN: Soft, non-tender, non-distended with bowel sounds. MUSCULOSKELETAL: No tenderness, deformities, or effusions noted on gross inspection. EXTREMITIES: No cyanosis, clubbing or edema. SKIN: Inspection of the skin reveals no rashes NEUROLOGIC: Alert and oriented x 4. Strength and sensation to light touch were grossly intact x 4, no facial asymmetry, no pronator drift, cranial nerves 2-12 are grossly intact.. Medications Administered Discontinued Medications Generic Name Dose Route Start Last Admin Trade Name Freq PRN Reason Stop Dose Admin Acetaminophen 975 mg 11/06/22 21:23 11/06/22 21:38 Acetaminophen 325 Mg Tablet PO 11/06/22 21:24 975 mg ONCE ONE Administration Ibuprofen 400 mg 11/06/22 21:23 11/06/22 21:39 Ibuprofen 400 Mg Tablet PO 11/06/22 21:24 Not Given ONCE ONE Ibuprofen 400 mg 11/06/22 22:53 11/06/22 22:55 Ibuprofen 400 Mg Tablet PO 11/06/22 22:54 400 mg ONCE ONE Administration Medical Decision Making Medical Decision Making MDM Narrative: 72-year-old female who comes in with complaints of URI symptoms, headache, shortness of breath. Will perform basic labs, EKG, chest x-ray as well as viral testing. She otherwise appears well and is hemodynamically stable. Patient received Tylenol and ibuprofen for headache, there are no focal findings. Review of all investigations negative for acute findings my interpretation is this patient may have had a viral illness that is no longer present, she is afebrile, oxygenating well on room air, appears well no acute findings and no focal findings. Patient declining 2nd troponin. Patient agreed to take the ibuprofen and then nursing informed me that patient through the ibuprofen across the room. She was ambulated and noted to have a steady gait and is otherwise nonfocal will be discharged home in stable condition. Differential Diagnosis Please see the discussion above Lab Data Please see the discussion above 11/06/22 20:44 11/06/22 20:44 Labs: Lab Results 11/06/22 11/06/22 11/06/22 Range/Units 20:44 20:44 20:44 WBC 7.0 (4.8-10.8) X10*3/uL RBC 4.66 D (4.20-5.50) X10*6/uL Hgb 12.7 (12.0-16.0) g/dl Hct 39.3 (37.0-47.0) % MCV 84.3 (80.0-98.0) fL MCH 27.3 (27.0-33.0) pg MCHC 32.3 (31.0-35.0) g/dl RDW 13.2 (11.0-16.0) % Plt Count 328 (160-400) X10*3/uL MPV 10.1 (9.4-12.3) fL Immature Gran % (Auto) 0.4 (0.0-0.4) % Neut % (Auto) 39.5 L (45-73) % Lymph % (Auto) 37.4 (20-40) % [place] % (Auto) 11.7 H (2-11) % Eos % (Auto) 10.3 H (0-4) % Baso % (Auto) 0.7 (0-2) % Lymph # (Auto) 2.6 (1.2-4.9) X10*3/uL [place] # (Auto) 0.8 (0.1-1.2) X10*3/uL Eos # (Auto) 0.7 H (0.0-0.4) X10*3/uL Baso # (Auto) 0.1 (0.0-0.2) X10*3/uL Abs Immat Gran (auto) 0.03 (0.00-0.03) X10*3/uL Absolute Neuts (auto) 2.8 (2.0-8.3) x10*3/uL Absolute Nucleated RBC 0.000 (0.0-0.012) X10*3/uL Nucleated RBC % (auto) 0.0 (0.0-0.2) /100WBC Sodium 140 (135-145) mmol/L Potassium 4.0 (3.3-5.1) mmol/L Chloride 105 (96-108) mmol/L Carbon Dioxide 26 (22-29) mmol/L Anion Gap 13 (12-20) BUN 14 (9-16) mg/dL Creatinine 0.70 (0.5-1.4) mg/dL Estim Creat Clear Calc 62.6 Estimated GFR > 60 Random Glucose 107 (60-115) mg/dL Calcium 9.6 (8.4-10.2) mg/dL Total Bilirubin 0.3 (0.0-1.0) mg/dL AST 21 (5-31) U/L ALT 16 (0-31) U/L Alkaline Phosphatase 72 (39-117) U/L Troponin I High Sens (<3.5-17.0) ng/L Total Protein 7.4 (6.5-8.0) g/dL Albumin 4.5 (3.5-5.0) g/dL Urine Color Yellow Urine Appearance Clear Urine pH 8.0 (5.0-9.0) Ur Specific [place] <= 1.005 (1.005-1.025) Urine Protein Negative (Neg-Trace) mg/dL Urine Glucose (UA) Negative (Negative) mg/dL Urine Ketones Negative (Negative) mg/dL Urine Blood Negative (Negative) Urine Nitrite Negative (Negative) Ur Leukocyte Esterase Trace H (Negative) Urine RBC 0-2 (0-2) /HPF Urine WBC 0-5 (0-5) /HPF Ur Squamous Epith Cells 0-2 (0-2) /HPF Urine Bacteria None Seen (None Seen) Hyaline Casts 0-2 (0-2) /LPF Influenza Type A (PCR) (Negative) Influenza Type B (PCR) (Negative) RSV RNA Qual (PCR) (Negative) SARS-CoV-2 RNA (RT-PCR) (Negative) 11/06/22 11/06/22 Range/Units 20:44 20:44 WBC (4.8-10.8) X10*3/uL RBC (4.20-5.50) X10*6/uL Hgb (12.0-16.0) g/dl Hct (37.0-47.0) % MCV (80.0-98.0) fL MCH (27.0-33.0) pg MCHC (31.0-35.0) g/dl RDW (11.0-16.0) % Plt Count (160-400) X10*3/uL MPV (9.4-12.3) fL Immature Gran % (Auto) (0.0-0.4) % Neut % (Auto) (45-73) % Lymph % (Auto) (20-40) % [place] % (Auto) (2-11) % Eos % (Auto) (0-4) % Baso % (Auto) (0-2) % Lymph # (Auto) (1.2-4.9) X10*3/uL [place] # (Auto) (0.1-1.2) X10*3/uL Eos # (Auto) (0.0-0.4) X10*3/uL Baso # (Auto) (0.0-0.2) X10*3/uL Abs Immat Gran (auto) (0.00-0.03) X10*3/uL Absolute Neuts (auto) (2.0-8.3) x10*3/uL Absolute Nucleated RBC (0.0-0.012) X10*3/uL Nucleated RBC % (auto) (0.0-0.2) /100WBC Sodium (135-145) mmol/L Potassium (3.3-5.1) mmol/L Chloride (96-108) mmol/L Carbon Dioxide (22-29) mmol/L Anion Gap (12-20) BUN (9-16) mg/dL Creatinine (0.5-1.4) mg/dL Estim Creat Clear Calc Estimated GFR Random Glucose (60-115) mg/dL Calcium (8.4-10.2) mg/dL Total Bilirubin (0.0-1.0) mg/dL AST (5-31) U/L ALT (0-31) U/L Alkaline Phosphatase (39-117) U/L Troponin I High Sens 13.0 (<3.5-17.0) ng/L Total Protein (6.5-8.0) g/dL Albumin (3.5-5.0) g/dL Urine Color Urine Appearance Urine pH (5.0-9.0) Ur Specific [place] (1.005-1.025) Urine Protein (Neg-Trace) mg/dL Urine Glucose (UA) (Negative) mg/dL Urine Ketones (Negative) mg/dL Urine Blood (Negative) Urine Nitrite (Negative) Ur Leukocyte Esterase (Negative) Urine RBC (0-2) /HPF Urine WBC (0-5) /HPF Ur Squamous Epith Cells (0-2) /HPF Urine Bacteria (None Seen) Hyaline Casts (0-2) /LPF Influenza Type A (PCR) NEGATIVE (Negative) Influenza Type B (PCR) NEGATIVE (Negative) RSV RNA Qual (PCR) NEGATIVE (Negative) SARS-CoV-2 RNA (RT-PCR) NEGATIVE (Negative) Independent Interpretation I performed an independent interpretation of an: EKG Interpretation: Sinus rhythm with first-degree AV block, HR-63, no STEMI, [place]/QRS/QTC are within normal limits. EKG is consistent in comparison with 06/08/2022. Radiology Impression Radiologist Impression: My interpretation is in agreement with radiology's impression of the imaging studies. External Record Review External record reviewed: Outpatient record and Prior outpatient labs Chronic Conditions Patient?s care impacted by: Hypertension Discharge Plan Discharge Clinical Impression: Headache, HTN (hypertension) Patient Disposition: Home, Self-Care Instructions: DASH Eating Plan (ED), Hypertension (ED), General Headache (ED) Additional Instructions: 1. Resume all home medications as prescribed. 2. Tylenol 1000 mg, orally, every 6 hours as needed for pain control. Do not exceed 4000 mg within 24 hours. 3. Please follow-up with your primary care provider and discuss adjustment of your blood pressure medication. Call the office 1st thing in the morning. Return to the ER for any worsening symptoms. Prescriptions: No Action (DME) blood-glucose meter [FreeStyle Lite Meter] Kit See Rx Instructions .ROUTE .MEDSUPPLY Qty: 1 0RF Rx Instructions: As directed (DME) lancets 28 gauge misc See Rx Instructions topical QID Qty: 100 4RF Rx Instructions: test three times a day olanzapine 7.5 mg tablet 7.5 mg PO BEDTIME Qty: 90 3RF cholecalciferol (vitamin D3) 25 mcg (1,000 unit) tablet 25 mcg PO DAILY Qty: 90 3RF oxybutynin chloride 15 mg tablet extended release 24 hr 30 mg PO DAILY Qty: 180 3RF multivitamin Tablet 1 tab PO DAILY Qty: 90 3RF omeprazole 40 mg capsule,delayed release(DR/EC) 40 mg PO DAILY Qty: 90 3RF levothyroxine 100 mcg tablet 100 mcg PO DAILY Qty: 90 3RF fenofibrate micronized 200 mg capsule 200 mg PO DAILY Qty: 90 3RF (DME) FreeStyle Lite Strips Strip See Rx Instructions .Route Qty: 100 3RF Rx Instructions: Test blood sugars daily loratadine 10 mg tablet 10 mg PO DAILY Qty: 90 3RF olmesartan 40 mg tablet 40 mg PO DAILY Qty: 90 1RF topiramate 100 mg tablet 100 mg PO DAILY Qty: 90 1RF sucralfate 1 gram tablet 1 g PO TID Qty: 270 1RF pravastatin 40 mg tablet 40 mg PO BEDTIME Qty: 90 3RF docusate sodium [Colace] 100 mg capsule 100 mg PO BID Qty: 180 1RF lactulose 10 gram/15 mL solution 20 g PO DAILY Qty: 946 3RF (DME) lancets [FreeStyle Lancets] 28 gauge misc See Rx Instructions .ROUTE .MEDSUPPLY Qty: 100 3RF Rx Instructions: use to test blood sugar once daily (DME) walker Misc See Rx Instructions .Route Qty: 1 0RF Rx Instructions: Rollator walker with 4 wheels and hand brakes phenytoin sodium extended 100 mg capsule 200 mg PO BID Qty: 360 0RF lidocaine 4 % adhesive patch,medicated 1 patch topical Q24H PRN (Reason: pain) Qty: 15 0RF Rx Instructions: may leave on for up to 12 hrs acetaminophen [Aphen] 325 mg tablet 650 mg PO Q6H PRN (Reason: pain) Qty: 20 0RF meclizine 12.5 mg tablet 12.5 mg PO TID PRN (Reason: dizziness) Qty: 20 0RF hydroxyzine HCl 25 mg tablet 25 mg PO BEDTIME PRN (Reason: insomnia) gabapentin 100 mg capsule 100 mg PO TID perphenazine 4 mg tablet 4 mg PO DAILY PRN Shingrix (PF) 50 mcg/0.5 mL suspension for reconstitution IM Fluzone HighDose Quad 20-21 PF 240 mcg/0.7 mL syringe IM triamcinolone acetonide 0.1 % cream 1 appl topical DAILY Qty: 80 2RF perphenazine 16 mg tablet 16 mg PO TID albuterol sulfate 90 mcg/actuation HFA aerosol inhaler 1 inh inhalation QID PRN (Reason: shortness of breath or wheezing) Qty: 6.7 1RF olanzapine 10 mg tablet 10 mg PO BEDTIME multivitamin with folic acid [Daily-Sadaf (with folic acid)] 400 mcg tablet 1 tab PO DAILY Referrals: Carmelina Obregon MD [Primary Care Provider] -
[2022-11-06 21:27] LABS: Influenza A PCR NEGATIVE (Negative); Influenza B PCR NEGATIVE (Negative); Resp Syncy Virus RNA Qual PCR NEGATIVE (Negative); SARS COV2 PCR INHOUSE NEGATIVE (Negative)
[2022-11-06] MEDS: Acetaminophen 325 MG TABLET 975 MG PO (21:38)
--- NOTE | 2022-11-06 21:40 | PC.NURSE ---
pt medicated per provider order, pt declined motrin - causes stomach upset. pt pending XR results.
[2022-11-06] MEDS: Ibuprofen 400 MG TABLET PO (22:55)
--- NOTE | 2022-11-06 22:58 | PC.NURSE ---
pt medicated for 10/10 headache, pt refusing additional blood draws, hypertensive, all other vss, provider aware.
[2022-11-06 22:59] VITALS: BP 187/85; PULSE 62; RESP 16; O2SAT 96
--- NOTE | 2022-11-06 23:04 | PC.NURSE ---
Monitor Patient O2 saturation level while ambulating. Patient starting O2 levels was 97% and went down to 96% while ambulating
== END 2022-11-07 00:31 | disposition home or self-care (01) ==
PROVIDERS: Emergency Provider Student in an Organized Health Care Education/Training Program; PCP Internal Medicine
DX: R51.9 Headache, unspecified (principal); I10 Essential (primary) hypertension; Z20.822 Contact with and (suspected) exposure to COVID-19; Z20.828 Contact with and (suspected) exposure to other viral communicable diseases; E78.5 Hyperlipidemia, unspecified; Z79.02 Long term (current) use of antithrombotics/antiplatelets; Z79.899 Other long term (current) drug therapy
CPT/HCPCS: 0241U; 71046; 80053; 81001; 84484; 85025; 93005; 99283; 99285

== ENCOUNTER 2022-12-08 13:36 | Outpatient (REF) | payer MEDICARE, MEDICAID, SELFPAY ==
[2022-12-08 17:04] LABS: Phenytoin Dilantin 13.5 ug/mL (10.0-20.0)
== END 2022-12-08 13:37 | disposition home or self-care (01) ==
LOC: HO.HMGCLDS 13:36
PROVIDERS: PCP Internal Medicine; Visit Provider Psychiatry & Neurology Neurology
DX: R56.9 Unspecified convulsions (principal); Z79.899 Other long term (current) drug therapy
CPT/HCPCS: 36415; 80185

== ENCOUNTER 2023-04-07 06:49 | Outpatient (REF) | payer MEDICARE, MEDICAID, SELFPAY ==
[2023-04-07 11:34] LABS: Estimated Average Glucose 123 mg/dL; Hemoglobin A1c % 5.9 %
[2023-04-07 11:36] LABS: Creatinine Urine 24.32 mg/dL; Microalbum/Creatinine Ratio Ur 180.9 ug/mg cr
[2023-04-07 11:36] LABS: Digoxin < 0.2 ng/mL (0.8-2.0)
[2023-04-07 11:42] LABS: Alanine Aminotransferase 17 U/L (0-31); Albumin Level 4.3 g/dL (3.5-5.0); Alkaline Phosphatase 59 U/L (39-117); Anion Gap 16 (12-20); Aspartate Amino Transferase 17 U/L (5-31); Bilirubin Total 0.3 mg/dL (0.0-1.0); Blood Urea Nitrogen 20 mg/dL (9-16); Calcium 10.1 mg/dL (8.4-10.2); Carbon Dioxide 20 mmol/L (22-29); Chloride 97 mmol/L (96-108); Cholesterol 163 mg/dL; Estimated Glomerular Filt Rate > 60; Glucose Random 114 mg/dL (60-115); HDL Cholesterol 53 mg/dL; LDL Cholesterol Calculated 67 mg/dl; Potassium 4.3 mmol/L (3.3-5.1); Sodium 129 mmol/L (135-145); Triglycerides 216 mg/dL
== END 2023-04-07 06:50 | disposition home or self-care (01) ==
LOC: HO.HMGCLDS 06:49
PROVIDERS: PCP Internal Medicine; Visit Provider Internal Medicine
DX: E87.1 Hypo-osmolality and hyponatremia (principal); E03.9 Hypothyroidism, unspecified; E78.5 Hyperlipidemia, unspecified; I10 Essential (primary) hypertension; E11.9 Type 2 diabetes mellitus without complications
CPT/HCPCS: 36415; 80053; 80061; 80162; 82043; 83036

== ENCOUNTER 2023-05-15 13:00 | Outpatient (AMB) | payer MEDICARE, MEDICAID, SELFPAY ==
[2023-05-15 13:06] VITALS: BP 118/74; PULSE 73; O2SAT 97; BMI 28.7
--- NOTE | 2023-05-15 13:06 | MHC.PC.OV ---
Vital Signs 05/15/23 13:06 Height 5 ft 1 in Weight 152 lb BMI 28.7 BP 118/74 Blood Pressure Location Lt brachial Position Sitting Pulse 73 Pulse Source Pulse Oximeter Pulse Oximetry (%) 97 Oxygen Delivery Method Room Air Intake Visit Reasons: Annual PE Intake Note: Pt is here today for PE. Pt states that her abdomen has been bloated. Allergies cyclobenzaprine [From Flexeril] Allergy (Unknown, Verified 05/15/23 13:10) Unknown [place] Carbonate Allergy (Unknown, Verified 05/15/23 13:10) unknown quinine [Quinine] Allergy (Unknown, Verified 05/15/23 13:10) UNSURE risperidone [From Risperdal] Allergy (Unknown, Verified 05/15/23 13:10) Unknown Sulfa (Sulfonamide Antibiotics) [SULFA (SULFONAMIDE ANTIBIOTICS)] Allergy (Unknown, Verified 05/15/23 13:10) UNKNOWN sulfadiazine Allergy (Verified 05/15/23 13:10) Unknown carbamazepine [From Tegretol] Adverse Reaction (Unknown, Verified 05/15/23 13:10) Increased WBC, Diarrhea clozapine [From Clozaril] Adverse Reaction (Unknown, Verified 05/15/23 13:10) Fever divalproex sodium [From Depakote] Adverse Reaction (Unknown, Verified 05/15/23 13:10) Diarrhea lithium [[place]] Adverse Reaction (Unknown, Verified 05/15/23 13:10) DIARRHEA/TOXIC quetiapine [From Seroquel] Adverse Reaction (Unknown, Verified 05/15/23 13:10) Increased hallucinations Tobacco use date assessed: 11/16/22 Dental Screening Dental Screen Date: 05/15/23 Did you have a dental visit in the last 12 months?: Yes Did you have a dental problem in the last 6 months where you did not have access to dental care?: No Was dental information given to patient?: Patient has dentist HPI Annual PE HPI Details Pt presents for PE. PFSH Medical History Hypothyroid Bipolar 1 disorder Lower back pain Hyperlipidemia HTN (hypertension) Depression Surgical History History of bladder suspension procedure Hx of cholecystectomy Family History Father Lung cancer Mother Lung cancer Daughter Uterine cancer Daughter Skin cancer Brother Lung cancer Sister Mental health disorder Social History Housing: Apartment Alcohol intake: never Patient Tobacco Use Status: Never used Tobacco e-Cigarette/Vaping Use: Never Used Second Hand Smoke Exposure: No service: No Current occupational status: other Current occupational exposures/hazards: No Cognitive needs: No Hearing needs: No Vision needs: Yes Questionnaire Thrive Questionnaire Date Thrive assessed: 11/16/22 GIOVANI-7 AMB Questionnaire GIOVANI-7 Date GIOVANI - 7 assessed: 11/16/22 Source: Developed by Drs. Pineda Ba, Yessenia Carlton, Ramin Qureshi and colleagues, with an educational davis from [employer]. Review of Systems Const All systems reviewed & are unremarkable except as noted in HPI and below Reports no additional complaints Eyes Reports no additional complaints ENT Reports no additional complaints Card Reports no additional complaints Resp Reports no additional complaints GI Reports no additional complaints Reports no additional complaints Physical exam (Primary Care) Vital Signs: Last Vital Signs Pulse 73 05/15/23 13:06 BP 118/74 05/15/23 13:06 Pulse Ox 97 05/15/23 13:06 Oxygen Delivery Method Room Air 05/15/23 13:06 BMI result Body Mass Index 28.7 Tobacco/Smoking Status: Tobacco use Status Tobacco use date assessed 11/16/22 05/15/23 13:15 Patient Tobacco Use Status Never used Tobacco 05/15/23 13:15 e-Cigarette/Vaping Use Never Used 05/15/23 13:15 Thrive Assessment: Date of Thrive Assessment Date Thrive assessed 11/16/22 05/15/23 13:15 Const General: no acute distress HENMT Ears: hearing grossly normal bilaterally Face and sinus: Yes normal facial exam Mouth: Normal oral and palatal mucosa present Eyes General: appearance normal, both eyes and all related structures Neck Neck: Yes no lymphadenopathy and Yes supple Chest Chest palpation & inspection: normal inspection of the chest Resp Effort & Inspection: normal respiratory effort Auscultation: clear to auscultation bilaterally Cardio Rhythm: regular rhythm Heart sounds: S1 normal heart sound present and S2 normal heart sound present GI Inspection: Yes normal to inspection Palpation (GI): Soft to palpation Percussion: Yes normal to percussion Auscultation: normal bowel sounds Extrem General: Yes no clubbing, cyanosis or edema Assessment and Plan Assessment & Plan (1) Hyponatremia: Code(s): E87.1 - Hypo-osmolality and hyponatremia Plan: Fluid restriction to 48 oz a day discussed with the patient and repeat basic metabolic panel in 1 week (2) Hyperglycemia: Comment: A1C 5.9, 05/26 Code(s): R73.9 - Hyperglycemia, unspecified Plan: ADA diet increase exercise weight loss discussed with the patient , follow-up in 6 months with a fasting labs before (3) Hyperlipidemia: Code(s): E78.5 - Hyperlipidemia, unspecified Plan: Continue statin (4) HTN (hypertension): Code(s): I10 - Essential (primary) hypertension Plan: Continue olmesartan (5) Bipolar 1 disorder: Code(s): F31.9 - Bipolar disorder, unspecified Plan: Continue current medications and follow-up with Psychiatry (6) Annual physical exam: Code(s): Z00.00 - Encounter for general adult medical examination without abnormal findings Plan: Well-balanced and regular physical activity discussed with the patient. Patient declined mammogram and colonoscopy Orders: Orders Basic Metabolic Panel 1 Week E87.1 - Hypo-osmolality and hyponatremia Comprehensive [place]. Panel Fast 6 Months E03.9 - Hypothyroidism, unspecified, E78.5 - Hyperlipidemia, unspecified, I10 - Essential (primary) hypertension, R73.9 - Hyperglycemia, unspecified Complete Blood Count Auto Diff 6 Months E03.9 - Hypothyroidism, unspecified, E78.5 - Hyperlipidemia, unspecified, I10 - Essential (primary) hypertension, R73.9 - Hyperglycemia, unspecified Lipid Panel 6 Months E03.9 - Hypothyroidism, unspecified, E78.5 - Hyperlipidemia, unspecified, I10 - Essential (primary) hypertension, R73.9 - Hyperglycemia, unspecified Hemoglobin A1c 6 Months E03.9 - Hypothyroidism, unspecified, E78.5 - Hyperlipidemia, unspecified, I10 - Essential (primary) hypertension, R73.9 - Hyperglycemia, unspecified TSH reflex Free T4 6 Months E03.9 - Hypothyroidism, unspecified, E78.5 - Hyperlipidemia, unspecified, I10 - Essential (primary) hypertension, R73.9 - Hyperglycemia, unspecified Coding Level of Care Code Est Pt Prev Care >65y(62744) Diagnoses Hyponatremia E87.1 Hyperglycemia R73.9 Hyperlipidemia E78.5 HTN (hypertension) I10 Bipolar 1 disorder F31.9 Annual physical exam Z00.00
== END 2023-05-15 13:49 | disposition home or self-care (01) ==
PROVIDERS: PCP Internal Medicine; Visit Provider Internal Medicine
DX: Z00.00 Encounter for general adult medical examination without abnormal findings (principal); I10 Essential (primary) hypertension; F31.9 Bipolar disorder, unspecified; E87.1 Hypo-osmolality and hyponatremia; R73.9 Hyperglycemia, unspecified; E78.5 Hyperlipidemia, unspecified
CPT/HCPCS: 99397

== ENCOUNTER 2023-05-23 06:05 | Outpatient (REF) | payer MEDICARE, MEDICAID, SELFPAY ==
[2023-05-23 12:45] LABS: Anion Gap 14 (12-20); Blood Urea Nitrogen 20 mg/dL (9-16); Calcium 10.2 mg/dL (8.4-10.2); Carbon Dioxide 24 mmol/L (22-29); Chloride 99 mmol/L (96-108); Estimated Glomerular Filt Rate > 60; Glucose Random 113 mg/dL (60-115); Potassium 4.4 mmol/L (3.3-5.1); Sodium 133 mmol/L (135-145)
== END 2023-05-23 06:06 | disposition home or self-care (01) ==
LOC: HO.HMGCLDS 06:05
PROVIDERS: PCP Internal Medicine; Visit Provider Internal Medicine
DX: E87.1 Hypo-osmolality and hyponatremia (principal)
CPT/HCPCS: 36415; 80048

== ENCOUNTER 2023-06-29 09:56 | Outpatient (AMB) | payer MEDICARE, MEDICAID, SELFPAY ==
[2023-06-29 10:06] VITALS: BP 112/66; PULSE 90; O2SAT 97; BMI 27.2
--- NOTE | 2023-06-29 10:06 | MHC.PC.OV ---
Vital Signs 06/29/23 10:06 Height 5 ft 1 in Weight 144 lb BMI 27.2 BP 112/66 Blood Pressure Location Lt brachial Position Sitting Pulse 90 Pulse Source Pulse Oximeter Pulse Oximetry (%) 97 Oxygen Delivery Method Room Air Intake Visit Reasons: Hospital follow up Intake Note: Pt is here today for Hospital follow up visit. Allergies cyclobenzaprine [From Flexeril] Allergy (Unknown, Verified 06/29/23 10:10) Unknown [place] Carbonate Allergy (Unknown, Verified 06/29/23 10:10) unknown quinine [Quinine] Allergy (Unknown, Verified 06/29/23 10:10) UNSURE risperidone [From Risperdal] Allergy (Unknown, Verified 06/29/23 10:10) Unknown Sulfa (Sulfonamide Antibiotics) [SULFA (SULFONAMIDE ANTIBIOTICS)] Allergy (Unknown, Verified 06/29/23 10:10) UNKNOWN sulfadiazine Allergy (Verified 06/29/23 10:10) Unknown carbamazepine [From Tegretol] Adverse Reaction (Unknown, Verified 06/29/23 10:10) Increased WBC, Diarrhea clozapine [From Clozaril] Adverse Reaction (Unknown, Verified 06/29/23 10:10) Fever divalproex sodium [From Depakote] Adverse Reaction (Unknown, Verified 06/29/23 10:10) Diarrhea lithium [[place]] Adverse Reaction (Unknown, Verified 06/29/23 10:10) DIARRHEA/TOXIC quetiapine [From Seroquel] Adverse Reaction (Unknown, Verified 06/29/23 10:10) Increased hallucinations Medication List - Last Reconciled 06/29/23 by Carmelina Obregon MD acetaminophen (Aphen) 650 mg (2 x 325 mg) PO Q6H PRN albuterol sulfate 90 mcg/actuation 1 inh inhalation QID PRN blood sugar diagnostic (FreeStyle Lite Strips) Test blood sugars daily blood-glucose meter (FreeStyle Lite Meter kit) As directed cholecalciferol (vitamin D3) 25 mcg PO DAILY docusate sodium (Colace) 100 mg PO BID fenofibrate micronized 200 mg PO DAILY flu vacc [id number](65yr up)-PF mL IM gabapentin 100 mg PO TID hydroxyzine HCl 50 mg PO BEDTIME lactulose 20 grams (30 mL) PO DAILY lactulose 20 grams PO BID PRN lancets test three times a day lancets (FreeStyle Lancets) use to test blood sugar once daily levothyroxine 100 mcg PO DAILY lidocaine 4% 1 patch topical Q24H PRN loratadine 10 mg PO DAILY meclizine 12.5 mg PO TID PRN multivitamin 1 tab PO DAILY multivitamin with folic acid 400 mcg (Daily-Sadaf (with folic acid)) 1 tab PO DAILY olanzapine 7.5 mg PO BEDTIME olanzapine 10 mg PO BEDTIME olmesartan 40 mg PO DAILY omeprazole 40 mg PO DAILY oxybutynin chloride ER 30 mg (2 x 15 mg) PO DAILY perphenazine 4 mg PO DAILY PRN perphenazine 16 mg PO TID phenytoin sodium extended 200 mg (2 x 100 mg) PO BID polyethylene glycol 3350 (Miralax) 17 grams PO DAILY pravastatin 40 mg PO BEDTIME sennosides (senna) 8.6 mg PO BID PRN sucralfate 1 g PO TID topiramate 100 mg PO DAILY trazodone 100 mg PO BEDTIME PRN triamcinolone acetonide 0.1% 1 appl topical DAILY varicella-zoster [id number] (PF) 50 mcg/0.5 mL IM walker Rollator walker with 4 wheels and hand brakes Tobacco use date assessed: 06/29/23 Dental Screening Dental Screen Date: 06/29/23 Did you have a dental visit in the last 12 months?: Yes Did you have a dental problem in the last 6 months where you did not have access to dental care?: No Was dental information given to patient?: Patient has dentist [facility] Hospital follow up HPI Details Pt presents for f/u hospitalization at [facility] for constipation, fecal impaction, UTI. Pt has has been taking Senokot and Lactulose daily and reports regular soft bowel movements. Patient denies dysuria or increased urinary frequency. Type 2 diabetes hypertension are controlled current medications. [facility] Medical History Hypothyroid Bipolar 1 disorder Lower back pain Hyperlipidemia HTN (hypertension) Depression Surgical History History of bladder suspension procedure Hx of cholecystectomy Family History Father Lung cancer Mother Lung cancer Daughter Uterine cancer Daughter Skin cancer Brother Lung cancer Sister Mental health disorder Social History Housing: Apartment Alcohol intake: never Patient Tobacco Use Status: Never used Tobacco e-Cigarette/Vaping Use: Never Used Second Hand Smoke Exposure: No service: No Current occupational status: other Current occupational exposures/hazards: No Cognitive needs: No Hearing needs: No Vision needs: Yes Questionnaire Thrive Questionnaire Date Thrive assessed: 11/16/22 AUDIT C Alcohol Use Questionnaire (AUDIT-C) 1. How often do you have a drink containing alcohol?: Never 3. How often do you have six or more drinks on one occasion?: Never Total Score: 0 GIOVANI-7 AMB Questionnaire GIOVANI-7 Date GIOVANI - 7 assessed: 11/16/22 Source: Developed by Drs. Pineda Ba, Yessenia Carlton, Ramin Qureshi and colleagues, with an educational davis from [employer]. Review of Systems Const All systems reviewed & are unremarkable except as noted in HPI and below Reports no additional complaints Eyes Reports no additional complaints ENT Reports no additional complaints Card Reports no additional complaints Resp Reports no additional complaints GI Reports no additional complaints Reports no additional complaints Musc Reports no additional complaints Physical exam (Primary Care) Vital Signs: Last Vital Signs Pulse 90 06/29/23 10:06 BP 112/66 06/29/23 10:06 Pulse Ox 97 06/29/23 10:06 Oxygen Delivery Method Room Air 06/29/23 10:06 BMI result Body Mass Index 27.2 Tobacco/Smoking Status: Tobacco use Status Tobacco use date assessed 06/29/23 06/29/23 10:15 Patient Tobacco Use Status Never used Tobacco 06/29/23 10:15 e-Cigarette/Vaping Use Never Used 06/29/23 10:06 Thrive Assessment: Date of Thrive Assessment Date Thrive assessed 11/16/22 06/29/23 10:06 Const General: no acute distress HENMT Head: Yes normal to inspection Ears: hearing grossly normal bilaterally General nose exam: Normal external nose present Face and sinus: Yes normal facial exam Eyes General: appearance normal, both eyes and all related structures Neck Neck: Yes no lymphadenopathy and Yes supple Resp Effort & Inspection: normal respiratory effort Auscultation: clear to auscultation bilaterally Cardio Rhythm: regular rhythm Heart sounds: S1 normal heart sound present and S2 normal heart sound present GI Inspection: Yes normal to inspection Palpation (GI): Soft to palpation Percussion: Yes normal to percussion Auscultation: normal bowel sounds Assessment and Plan Assessment & Plan (1) Hyponatremia: Code(s): E87.1 - Hypo-osmolality and hyponatremia Plan: Check comprehensive panel today (2) Hyperglycemia: Comment: A1C 5.9, 05/26 Code(s): R73.9 - Hyperglycemia, unspecified Plan: Continue ADA diet regular exercise (3) Hypothyroid: Code(s): E03.9 - Hypothyroidism, unspecified Plan: Continue levothyroxine (4) Constipation: Code(s): K59.00 - Constipation, unspecified Plan: Continue Senokot and lactulose in, well balanced diet and increase fiber intake discussed with the patient Orders: Orders Comprehensive Met. Panel Today E87.1 - Hypo-osmolality and hyponatremia Coding Level of Care Code Est Pt Level 4 (04472) Diagnoses Hyponatremia E87.1 Hyperglycemia R73.9 Hypothyroid E03.9 Constipation K59.00
== END 2023-06-29 10:56 | disposition home or self-care (01) ==
PROVIDERS: PCP Internal Medicine; Visit Provider Internal Medicine
DX: E87.1 Hypo-osmolality and hyponatremia (principal); E11.9 Type 2 diabetes mellitus without complications; E03.9 Hypothyroidism, unspecified; K59.00 Constipation, unspecified
CPT/HCPCS: 99214

== ENCOUNTER 2023-06-29 10:50 | Outpatient (REF) | payer MEDICARE, MEDICAID, SELFPAY ==
[2023-06-29 14:08] LABS: Alanine Aminotransferase 16 U/L (0-31); Albumin Level 4.4 g/dL (3.5-5.0); Alkaline Phosphatase 61 U/L (39-117); Anion Gap 14 (12-20); Aspartate Amino Transferase 20 U/L (5-31); Bilirubin Total 0.3 mg/dL (0.0-1.0); Blood Urea Nitrogen 20 mg/dL (9-16); Calcium 10.4 mg/dL (8.4-10.2); Carbon Dioxide 22 mmol/L (22-29); Chloride 102 mmol/L (96-108); Estimated Glomerular Filt Rate > 60; Glucose Random 122 mg/dL (60-115); Potassium 4.4 mmol/L (3.3-5.1); Sodium 134 mmol/L (135-145)
== END 2023-06-29 10:51 | disposition home or self-care (01) ==
LOC: HO.HMGCLDS 10:50
PROVIDERS: PCP Internal Medicine; Visit Provider Internal Medicine
DX: E87.1 Hypo-osmolality and hyponatremia (principal)
CPT/HCPCS: 36415; 80053

== ENCOUNTER 2025-04-28 11:45 | Outpatient (AMB) | payer OTHER, MEDICAID, SELFPAY ==
--- OUTSIDE RECORDS SUMMARY | 2025-04-28 11:45 | XMS_ITS | Encounter Summary ---
Author Organization [facility] Address [address] [place] [address] Care Team Providers Care Investigation Division Lieutenant Name Role Phone Skyler Tiwari NP Primary Care Provider [phone] Reason for Visit * Consultation (Routine) - Authorized Specialty Diagnoses / Procedures Referred By José Miguel peres Referred To Contact Neurology Diagnoses Functional neurological symptom disorder with attacks or seizures Skyler Tiwari NP [address] [address] Phone: tel: fax:[phone] [facility] [address] Phone: tel: Referral ID Status Reason Start Date Expiration Date Visits Requested Visits Authorized [id number] Authorized Specialty Services Required 03/12/2025 03/12/2026 1 1 Encounter Details Date Type Department Care Team (Latest Contact Info) Description 04/28/2025 11:45 AM EDT PACE External Visit [facility] [address] [place] [id number] Functional neurological symptom disorder with attacks or seizures Social History Tobacco Use Types Packs/Day Years Used Date Smoking Tobacco: Never Passive Smoke Exposure: Never Smokeless Tobacco: Never Comments:Smoking Status: Nev er smoked tobacco Interpersonal Safety Answer Date Record ed Physical Abuse 09/08/2024 Verbal Abuse 09/08/2024 Comments Unknown Sex and Gender Information Value Date Recorded Sex Assigned at Female 09/08/2024 3:54 PM EST Legal Sex Female 6:14 AM EST Gender Identity Female 09/08/2024 3:54 PM EST Sexual Orientation Straight 09/08/2024 3: 54 PM EST documented as of this encounter Plan of Treatment Upcoming Encounters Date Type Department Care Team (Late st Contact Info) Description 04/28/2025 1:30 PM EDT Office Visit [facility] [place] [facility] [address] [place] [address] Skyler Tiwari, RUSS [address] [facility] [address] [place] [address] 05/04/2025 10:30 AM EDT P[facility] Home Care / [facility] [address] [place] [phone] Janeen Chan 05/11/2025 10:30 AM EDT P[facility] Home Care / [facility] [address] [place] [phone] Janeen Chan 05/18/2025 10:30 AM EDT P[facility] Home Care / [facility] Home Visit [facility] [address] [place] [phone] Janeen Chan 05/20/2025 1:00 PM EDT Clinical Support [facility] [place] [address] [place] [phone] 05/25/2025 10:30 AM EDT [facility] Home Care / [facility] Visit [facility] [address] [place] [phone] Janeen Chan 06/01/2025 10:30 AM EDT [facility] Home Care / [facility] Visit [facility] [address] [place] [phone] Janeen Chan 06/08/2025 10:30 AM EDT P[facility] Home Care / [facility] Home Visit [facility] [address] [place] [phone] Janeen Chan 06/09/2025 2:00 PM EDT Clinical Support [facility] [place] [address] [place] [phone] 06/15/2025 10:30 AM EDT [facility] Home Care / [facility] Visit [facility] [address] [place] [phone] Janeen Chan 06/22/2025 10:30 AM EDT P[facility] Home Care / [facility] Home Visit [facility] [address] [place] [phone] Janeen Chan 08/11/2025 1:30 PM EST Clinical Support [facility] [address] [place] [phone] 08/18/2025 2:10 PM EST Clinical Support [facility] [place] [address] [place] [phone] documented as of this encounter Visit Diagnoses Diagnosis Functional neurological symptom disorder with attacks or seizures documented in this encounter Orders Outpatient Referral Count Last Ordered Date Fir st Ordered Date AMB REFERRAL TO NEUROLOGY 1 04/28/2025 documented in this encounter Care Teams Investigation Division Lieutenant Relationship Specialty Start Date End Date Skyler Tiwari NP [address] [place] [id number] PCP - General LOUIS 10/17/24 documented as of this encounter
--- NOTE | 2025-04-28 12:05 | MHC.OFFVIS ---
Intake Visit Reasons: seizure Allergies cyclobenzaprine (From Flexeril) Allergy (Unknown, Verified 04/28/25 12:12) Unknown [place] Carbonate Allergy (Unknown, Verified 04/28/25 12:12) unknown quinine (Quinine) Allergy (Unknown, Verified 04/28/25 12:12) UNSURE risperidone (From Risperdal) Allergy (Unknown, Verified 04/28/25 12:12) Unknown Sulfa (Sulfonamide Antibiotics) (SULFA (SULFONAMIDE ANTIBIOTICS)) Allergy (Unknown, Verified 04/28/25 12:12) UNKNOWN sulfadiazine Allergy (Verified 04/28/25 12:12) Unknown carbamazepine (From Tegretol) Adverse Reaction (Unknown, Verified 04/28/25 12:12) Increased WBC, Diarrhea clozapine (From Clozaril) Adverse Reaction (Unknown, Verified 04/28/25 12:12) Fever divalproex sodium (From Depakote) Adverse Reaction (Unknown, Verified 04/28/25 12:12) Diarrhea lithium ([place]) Adverse Reaction (Unknown, Verified 04/28/25 12:12) DIARRHEA/TOXIC quetiapine (From Seroquel) Adverse Reaction (Unknown, Verified 04/28/25 12:12) Increased hallucinations Medication List - Last Reconciled 04/28/25 by Rehana Krishnan, DAYO acetaminophen (Aphen) 650 mg (2 x 325 mg) PO Q6H PRN albuterol sulfate 90 mcg/actuation 1 inh inhalation QID PRN aspirin 81 mg PO DAILY blood sugar diagnostic (FreeStyle Lite Strips) Test blood sugars daily blood-glucose meter (FreeStyle Lite Meter kit) As directed cholecalciferol (vitamin D3) 25 mcg PO DAILY docusate sodium (Colace) 100 mg PO BID fenofibrate micronized 200 mg PO DAILY flu vacc [id number](65yr up)-PF mL IM gabapentin 100 mg PO TID hydroxyzine HCl 50 mg PO BEDTIME lactulose 20 grams (30 mL) PO DAILY lactulose 20 grams PO BID PRN lancets test three times a day lancets (FreeStyle Lancets) use to test blood sugar once daily levothyroxine 100 mcg PO DAILY lidocaine 4% 1 patch topical Q24H PRN loratadine 10 mg PO DAILY losartan 50 mg PO DAILY meclizine 12.5 mg PO TID PRN multivitamin 1 tab PO DAILY multivitamin with folic acid 400 mcg (Daily-Sadaf (with folic acid)) 1 tab PO DAILY olanzapine 7.5 mg PO BEDTIME olanzapine 10 mg PO BEDTIME olmesartan 40 mg PO DAILY omeprazole 40 mg PO DAILY oxybutynin chloride ER 30 mg (2 x 15 mg) PO DAILY perphenazine 4 mg PO DAILY PRN perphenazine 16 mg PO TID phenytoin sodium extended 200 mg (2 x 100 mg) PO BID polyethylene glycol 3350 (Miralax) 17 grams PO DAILY pravastatin 40 mg PO BEDTIME sennosides (senna) 8.6 mg PO BID PRN sucralfate 1 g PO TID topiramate 100 mg PO DAILY trazodone 100 mg PO BEDTIME PRN triamcinolone acetonide 0.1% 1 appl topical DAILY varicella-zoster [id number] (PF) 50 mcg/0.5 mL IM walker Rollator walker with 4 wheels and hand brakes ziprasidone HCl (Ge[place]) 40 mg PO BID HPI Comments Details: She reports having a seizure in early summer 2024. Did not feel well and was sitting on couch, eyes rolled back and arms were jerking, and could hear what was happening around her. Her engineering test specialist called EMS and she was seen at [facility]. No further episodes. Occasional dizziness and feels like the room is spinning, takes meclizine as needed. Walking with walker, no falls. Sleep was up and down. Following with psychiatric med provider. Had an episode where she could hear, but did not respond and was flopping around, but she says she was aware. Was admitted to [facility] where she developed chest pains, no medications changed. CT brain and C spine were negative. Had seizure in November 2015. Gets confused at times and has cut back the lorazepam. She has chronic psychiatric problems predominantly schizoaffective disorder. Previous EEG was borderline showing some amplitude surging over both hemispheres with no clear epileptiform discharges. Headaches are okay with Topamax. Aortic aneurysm is stable. [facility] Medical History (Updated 04/28/25 @ 12:10 by Rehana Krishnan CNP) Hypercholesteremia GERD (gastroesophageal reflux disease) COPD (chronic obstructive pulmonary disease) Diabetes mellitus Schizoaffective disorder, unspecified Seizure Hypothyroid Bipolar 1 disorder Lower back pain Hyperlipidemia HTN (hypertension) Depression Surgical History History of bladder suspension procedure Hx of cholecystectomy Family History Father Lung cancer Mother Lung cancer Daughter Uterine cancer Daughter Skin cancer Brother Lung cancer Sister Mental health disorder Social History Housing: Apartment Alcohol intake: never Patient Tobacco Use Status: Never used Tobacco e-Cigarette/Vaping Use: Never Used Second Hand Smoke Exposure: No service: No Current occupational status: other Current occupational exposures/hazards: No Cognitive needs: No Hearing needs: No Vision needs: Yes Review of Systems Const Denies chills, Denies daytime sleepiness, Denies difficulty sleeping, Denies fatigue, Denies fever(s), Denies frequent falls, Denies headache(s), Denies increased appetite, Denies poor appetite, Denies snoring, Denies weakness, Denies weight gain and Denies weight loss Eyes Denies loss of vision ENT Denies vertigo, Denies dizziness, Denies headache(s) and Denies neck pain Card Denies chest pain at rest, Denies chest pain with activity, Denies syncope, Denies leg edema, Denies palpitations, Denies dyspnea and Denies dyspnea on exertion Resp Denies cough, Denies dyspnea, Denies dyspnea on exertion and Denies snoring GI Denies abdominal pain, Denies constipation, Denies heartburn, Denies diarrhea and Denies nausea Denies urinary frequency, Denies urinary incontinence and Denies urinary urgency Musc Denies abnormal gait, Denies back pain, Denies myalgias, Denies arthralgias, Denies neck pain, Denies numbness and Denies tingling Neuro Denies abnormal gait, Denies vertigo, Denies dizziness, Denies syncope, Denies frequent falls, Denies headache(s), Denies lack of coordination, Denies loss of vision, Denies memory loss, Denies numbness, Denies Other visual disturbances, Denies restless legs, Denies seizure-like activity, Denies tingling, Denies paresthesias, Denies tremor(s) and Denies weakness Psych Reports anxiety, Reports depression, Denies auditory hallucinations, Denies memory loss and Denies visual hallucinations Endo Denies fatigue and Denies palpitations Physical Exam Const Other: General Appearance:? normal, in no acute distress. Heart:? S1, S2 normal, no murmurs. Lungs:? clear anteriorly and posteriorly. Musculoskeletal:? normal. Extremities:? no edema. Psych:? alert, oriented, cognitive function intact, cooperative with exam. Neuro Other: Abnormal Neurological Findings:?Flat affect. Bradykinesia. Walking with walker. Mental Status: alert and oriented X 3. Normal attention, orientation, memory, and flat affect. Cranial Nerves: Pupils are equal, round, and reactive to light. External ocular muscles are intact. Visual lobo are full, no ptosis. Face is symmetrical, no facial weakness or droop. Facial sensations are normal. Tongue protrudes in midline. Palate elevates symmetrically. Shoulder shrugging is normal Motor Examination: Normal muscle tone, bulk and strength. No atrophy or fasciculations. No drift of the extended upper extremities. DTR 2+. Plantars are flexor. Sensory Exam: Normal light touch, temperature, pinprick, vibration, and joint-position sensations. Rhomberg sign is absent. Coordination: No ataxia. No titubation. Gait Exam: With walker. Cerebellar Signs: [id number] is okay. Extrapyramidal System: No tremor, rigidity with normal facial expressions. Bradykinesia. No bradyphrenia. Normal arm swing and posture. No propulsion or retropulsion. Speech: Normal. Results Reviewed Results Reviewed: 09/02/21 Dilantin 20.3 06/24/22 Dilantin 8.6 12/07/22 Dilantin 13.5. Assessment & Plan Assessment & Plan (1) Unspecified convulsions: Code(s): R56.9 - Unspecified convulsions Category: Medical Qualifiers: Convulsion type: unspecified Qualified Code(s): R56.9 - Unspecified convulsions Plan: Continue phenytoin sodium extended capsule 100mg 2 capsules twice a day. Coding Level of Care Code Est Pt Level 4 (77413) Diagnoses Convulsions, unspecified convulsion type R56.9 Convulsion type: unspecified
--- OUTSIDE RECORDS SUMMARY | 2025-04-28 12:41 | XMS_ITS | Encounter Summary ---
Author Organization [facility] Address [address] [place] [address] Care Team Providers Care Cash Grain Grower Name Role Phone Skyler Tiwari NP Primary Care Provider [phone] Encounter Details Date Type Department Care Team (Late Contact Info) Description 09/23/2024 Lab Requisition [facility] [address] [place] [address] Skyler Tiwari NP [address] [address] Personal history of urinary (tract) infections Social History Tobacco Use Types Packs/Day Years Used Date Smoking Tobacco: Never Passive Smoke Exposure: Never Smokeless Tobacco: Never Interpersonal Safety Answer Date Record ed Physical [...] Encounters Date Type Department Care Team (Late Contact Info) Description 04/28/2025 1:30 PM EDT Office Visit [facility] [address] [place] [phone] Skyler Tiwari NP [address] [address] 05/04/2025 10:30 AM EDT [facility] Home Visit [facility] [address] [place] [address] Janeen Chan 05/11/2025 10:30 AM EDT [facility] / [facility] Home Visit [facility] [address] [place] [phone] Janeen Chan 05/18/2025 10:30 AM EDT [facility] / [facility] Home Visit [facility] [address] [place] [phone] Janeen Chan 05/20/2025 1:00 PM EDT Clinical Support Ana NAPOLES [place] [address] [place] [phone] 05/25/2025 10:30 AM EDT [facility] Home [facility] / [facility] Home Visit Ana [facility] [address] [place] [phone] Janeen Chan 06/01/2025 10:30 AM EDT [facility] Home [facility] / [facility] Home Visit [facility] [address] [place] [phone] Janeen Chan 06/08/2025 10:30 AM EDT [facility] Home [facility] / [facility] Home Visit Ana [facility] [address] [place] [phone] Janeen Chan 06/09/2025 2:00 PM EDT Clinical Support Ana NAPOLES [place] [address] [place] [phone] 06/15/2025 10:30 AM EDT [facility] Home [facility] / P[facility] Home Visit Ana [facility] [address] [place] [phone] Janeen Chan 06/22/2025 10:30 AM EDT [facility] Home [facility] / [facility] Home Visit [facility] [address] [place] [address] Janeen Chan 08/11/2025 1:30 PM EST Clinical Support Ana NAPOLES [place] 200 [facility] [place] [address] 08/18/2025 2:10 PM EST Clinical Support Ana NAPOLES MA [address] [place] [address] documented as of this encounter Procedures Procedure Name Priority Date/Time Associated Diagnosis Comments URINALYSIS WITH REFLEX MICROSCOPIC AND CULTURE Routine 09/23/2024 11:00 AM EST Personal history of urinary (tract) infections ORTEGA URINE CULTURE TUBE Routine 09/23/2024 11:00 AM EST Personal history of urinary (tract) infections URINALYSIS WITH REFLEX MICROSCOPIC AND CULTURE Routine 09/23/2024 11:00 AM EST Personal history of urinary (tract) infections CULTURE URINE Routine 09/23/2024 11:00 AM EST Personal history of urinary (tract) infections documented in this encounter Results * (ABNORMAL) Culture urine (09/23/2024 11:00 AM EST) [facility] Culture, Urine 50,000-100,000 CFU/mL Enterococcus faecalis(A) DUSTIN 09/25/2024 11:24 AM EST [facility] Comment: Edited result: Previously reported as Gram Positive Cocci on 09/24/2024 at 1100 EST. Urine Urine specimen obtained by clean catch procedure / Unknown 09/23/2024 11:00 AM EST 09/23/2024 3:15 PM EST Narrative Organism Antibiotic Method Susceptibility Enterococcus faecalis Benzylpenicillin DUSTIN 4 ug/ml: Susceptible Enterococcus faecalis Ampicillin DUSTIN <=2 ug/ml: Susceptible Enterococcus faecalis Ciprofloxacin DUSTIN >=8 ug/ml: Resistant Enterococcus faecalis Levofloxacin DUSTIN >=8 ug/ml: Resistant Enterococcus faecalis Linezolid DUSTIN 2 ug/ml: Susceptible Enterococcus faecalis Vancomycin DUSTIN <=0.5 ug/ml: Susceptible Enterococcus faecalis Tetracycline DUSTIN >=16 ug/ml: Resistant Enterococcus faecalis Nitrofurantoin DUSTIN <=16 ug/ml: Susceptible us Skyler Tiwari NP LAB MICROBIOLOGY - GENERAL ORDER JOSE CARLOS Final Result [facility] [address] [place] [address], [place] [phone] * (ABNORMAL) Urinalysis with reflex microscopic and culture (09/23/2024 11:00 AM EST) Pathologist [facility] Specific [place] Urine 1.009 1.003 - 1.030 LAB URINALYSIS - AUTOMATED METHOD 09/23/2024 3:15 PM [facility] pH, Urine 6.5 5.0 - 8.0 pH LAB URINALYSIS - AUTOMATED METHOD 09/23/2024 3:15 PM [facility] Leukocytes, Urine Large(A) Negative LAB URINALYSIS - AUTOMATED METHOD 09/23/2024 3:15 PM [facility] Nitrite, Urine Negative Negative LAB URINALYSIS - AUTOMATED METHOD 09/23/2024 3:15 PM [facility] Protein, Urine Trace <=Trace mg/dL LAB URINALYSIS - AUTOMATED METHOD 09/23/2024 3:15 PM [facility] Glucose, Urine Negative Negative mg/dL LAB URINALYSIS - AUTOMATED METHOD 09/23/2024 3:15 PM [facility] Ketones, Urine Negative Negative mg/dL LAB URINALYSIS - AUTOMATED METHOD 09/23/2024 3:15 PM [facility] Urobilinogen , Urine 0.2 0.2 - 1.0 mg/dL LAB URINALYSIS - AUTOMATED METHOD 09/23/2024 3:15 PM [facility] Bilirubin, Urine Negative Negative LAB URINALYSIS - AUTOMATED METHOD 09/23/2024 3:15 PM [facility] Blood, Urine Small(A) Negative LAB URINALYSIS - AUTOMATED METHOD 09/23/2024 3:15 PM [facility] RBC, Urine 8.8(H) 0 - 4 /HPF LAB URINALYSIS - AUTOMATED METHOD 09/23/2024 3:15 PM [facility] WBC, Urine 1,371.2(H) 0 - 4 /HPF LAB URINALYSIS - AUTOMATED METHOD 09/23/2024 3:15 PM [facility] Squamous Epithelial, Urine 7 0 - 60 /LPF LAB URINALYSIS - AUTOMATED METHOD 09/23/2024 3:15 PM [facility] Bacteria, Urine Negative Negative /HPF LAB URINALYSIS - AUTOMATED METHOD 09/23/2024 3:15 PM [facility] Hyaline Casts, Urine 2.6 0 - 3 /LPF LAB URINALYSIS - AUTOMATED METHOD 09/23/2024 3:15 PM [facility] Urine Urine specimen obtained by clean catch procedure / Unknown 09/23/2024 11:00 AM EST 09/23/2024 2:46 PM EST us Skyler Tiwari NP LAB URINE ORDERABLES Final Resul t Performing Organization Address [facility]/ZIP Co de Phone Number [facility] [address] [place] [address], * Ortega urine culture tube (09/23/2024 11:00 AM EST) Extra Tube Hold for add-ons. 09/23/2024 4:[address] [facility] Comment:Auto resulted. Urine Urine specimen obtained by clean catch procedure / Unknown 09/23/2024 11:00 AM EST 09/23/2024 2:46 PM EST us Skyler Tiwari NP LAB URINE ORDERABLES Final Resul t [facility] [address] [place] [address], documented in this encounter Visit Diagnoses Diagnosis Personal history of urinary (tract) infections documented in this encounter Care Teams Cash Grain Grower Relationship Specialty Start Date End Date Skyler Tiwari NP [address] [place] [address] PCP - General PACE 10/17/24 documented as of this encounter
--- OUTSIDE RECORDS SUMMARY | 2025-04-28 12:41 | XMS_ITS | Encounter Summary ---
Author Organization [employer] Address [address] [place] [address] Care Team Providers Care Research Professor Of Biostatistics Name Role Phone Unavailable Primary Care Provider Unavailabl e Encounter Details Date Type Department Care Team (Latest Contact Info) Description 05/21/2019 Abstract [facility] CONVERSIONS Dental, Provider, DDS Social History Tobacco Use Types Packs/Day Years Used Date Smoking Tobacco: Never Assessed Comments Unknown Sex and Gender Information Value Date Recorded Sex Assigned at Female 07/03/2022 10:24 AM EDT Legal Sex Female 10:24 AM EDT Gender Identity Not on file Sexual Orientation Not on file documented as of this encounter Plan of Treatment Not on file documented as of this encounter Visit Diagnoses Not on filedocumented in this encounter
--- OUTSIDE RECORDS SUMMARY | 2025-04-28 12:41 | XMS_ITS | Encounter Summary ---
Author Organization [facility] Address [address] [place] [address] Care Team Providers Care Swimming Coach Name Role Phone Skyler Tiwari NP Primary Care Provider [phone] Encounter Details Date Type Department Care Team (Late Contact Info) Description 01/15/2025 Health [facility] [address] [place] [phone] Zahra Honeycutt RN Social History Tobacco Use Types Packs/Day Years [...] 04/28/2025 1:30 PM EDT Office Visit [facility] [address] [place] [phone] Skyler Tiwari NP [facility] [address] [address] 05/04/2025 10:30 AM EDT [facility] Home [facility] / [facility] Home Visit [facility] [address] [place] [address] Janeen Chan 05/11/2025 10:30 AM EDT [facility] Home [facility] / [facility] Home Visit Ana [facility] [address] [place] [address] Janeen Chan 05/18/2025 10:30 AM EDT [facility] Home [facility] / P[facility] Home Visit Ana [facility] [address] [place] [phone] Janeen Chan 05/20/2025 1:00 PM EDT Clinical Support Ana NAPOLES [place] [address] [place] [address] 05/25/2025 10:30 AM EDT [facility] Home [facility] / P[facility] Home Visit Ana N[facility] [address] [place] [phone] Janeen Chan 06/01/2025 10:30 AM EDT [facility] Home [facility] / PACE Home Visit Ana N[facility] [address] [place] [phone] Janeen Chan 06/08/2025 10:30 AM EDT [facility] Home [facility] / [facility] Home Visit Ana [facility] [address] [place] [phone] Janeen Chan 06/09/2025 2:00 PM EDT Clinical Support Ana NAPOLES [place] [address] [place] [phone] 06/15/2025 10:30 AM EDT [facility] Home [facility] / [facility] Home Visit [facility] [address] [place] [phone] Janeen Chan 06/22/2025 10:30 AM EDT [facility] Home [facility] / P[facility] Home Visit Ana [facility] [place] [facility] [address] [place] [phone] Janeen Chan 08/11/2025 1:30 PM EST Clinical Support [employer] [address] [phone] 08/18/2025 2:10 PM EST Clinical Support [address] [phone] documented as of this encounter Visit Diagnoses Not on filedocumented in this encounter Care Teams Swimming Coach Relationship Specialty Start Date End Date Skyler Tiwari NP [address] [place] [address] PCP - General PACE 10/17/24 documented as of this encounter
--- OUTSIDE RECORDS SUMMARY | 2025-04-28 12:41 | XMS_ITS | Encounter Summary ---
Author Organization [facility] Address [address] [place] [address] Care Team Providers Care Material Stockkeeper Yard Name Role Phone Skyler Tiwari NP Primary Care Provider Reason for Visit * Reason Onset Date Comments Clinical 04/07/2025 Arley called to re ports when she applied icy Hot cream to her neck because she was in pain and started to burn. States she attempted to apply a cool compress but it continues to burn. Arley was planning to call 911 as she reports she was not getting no relief after approx 30 minutes. IDT to f/u. Encounter Details Date Type Department Care Team (Late st Contact Info) Description 04/07/2025 [facility]ACE On-Call [facility] [address] [place] [address] Skyler Tiwari NP [address] [phone] Social History Tobacco Use Types Packs/Day Years [...] PM EST documented as of this encounter Progress Notes * Kacy Smith RN - 04/07/2025 2:48 PM EDT Spoke to PAR who is feeling okay and looking to find out if her Diclofenac gel has been ordered. Advised PAR her provider will order medication and will be delivered ROSELINE. documented in this encounter Plan of Treatment Upcoming Encounters Date Type Department Care Team (Late st Contact Info) Description 04/28/2025 1:30 PM EDT Office Visit [place] [facility] [address] [place] [address] Skyler Tiwari, RUSS [address] [facility] [address] [place] [address] 05/04/2025 10:30 AM EDT P[facility] Home Care / [facility] Home Visit Ana [facility] [address] [place] [phone] Janeen Chan 05/11/2025 10:30 AM EDT [facility] Home [facility] / P[facility] Home Visit Ana [facility] [address] [place] [phone] Janeen Chan 05/18/2025 10:30 AM EDT [facility] Home [facility] / [facility] Home Visit Ana [facility] [address] [place] [phone] Janeen Chan 05/20/2025 1:00 PM EDT Clinical Support Ana NAPOLES MA [address] [place] [phone] 05/25/2025 10:30 AM EDT [facility] Home [facility] / PACE Home Visit Ana [facility] [address] [place] [phone] Janeen Chan 06/01/2025 10:30 AM EDT [facility] Home Care / PACE Home Visit Ana N[facility] [address] [place] [phone] Janeen Chan 06/08/2025 10:30 AM EDT [facility] Home Care / PACE Home Visit Ana N[facility] [address] [place] [phone] Janeen Chan 06/09/2025 2:00 PM EDT Clinical Support nAa NAPOLES MA [address] [place] [phone] 06/15/2025 10:30 AM EDT [facility] Home [facility] / P[facility] Home Visit Ana N[facility] [address] [place] [phone] Janeen Chan 06/22/2025 10:30 AM EDT [facility] Home [facility] / P[facility] Home Visit Ana [facility] [address] [place] [phone] Janeen Chan 08/11/2025 1:30 PM EST Clinical Support Ana NAPOLES MA [address] [place] [phone] 08/18/2025 2:10 PM EST Clinical Support Ana NAPOLES [place] [address] [place] [phone] documented as of this encounter Visit Diagnoses Not on filedocumented in this encounter Care Teams Material Stockkeeper Yard Relationship Specialty Start Date End Date Skyler Tiwari NP [address] [place] [phone] PCP - General PACE 10/17/24 documented as of this encounter
--- OUTSIDE RECORDS SUMMARY | 2025-04-28 12:41 | XMS_ITS | Clinical Summary ---
Author Organization [address] [facility] Address [address] [place] [address] Phone Care Team Providers [employer] Specialist Name Role Phone Skyler Tiwari NP Primary Care Provider Allergies Active Allergy Reactions Criticality Noted Date Comments Clozapine 10/10/2024 Divalproex Sodium 10/10/2024 Wagram 10/10/2024 Morphine Anxiety 09/08/2024 Quinine Sulfate 10/10/2024 Quetiapine 10/10/2024 Risperidone 10/10/2024 Sulfa (Sulfonamide Antibiotics) 03/2025 SULFA DRUGS Carbamazepine 10/10/2024 Medications traZODone (DESYREL) 100 mg tabletIndications: Hyponatremia,Urina ry tract infection without hematuria, site unspecified,Other iron deficiency anemia,Essential (primary) hypertension,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 V24, [facility] V28),Aneurysm of ascending aorta without rupture ([facility] V24),Paroxysmal atrial fibrillation ([facility] V24, [facility] V28),1st degree AV block,Chronic constipation,Vitam in D deficiency,Partial edentulism, unspecified edentulism class,Pancreatic mass,Nephrolithias is,Retention, urine,Onychauxis,H ypercholesterolemi a,Schizoaffective disorder, unspecified type ([facility] V24, [facility] V28),Anxiety,Other depression,Poor hygiene,Presbyopia ,Dry eyes Take 1 tablet (100 mg total) by mouth at bedtime. 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 V24, [facility]/HCC V28),Aneurysm of ascending aorta without rupture ([facility]/HCC V24),Paroxysmal atrial fibrillation ([facility]/HCC V24, [facility]/HCC V28),1st degree AV block,Chronic constipation,Vitam in D deficiency,Partial edentulism, unspecified edentulism class,Pancreatic mass,Nephrolithias is,Retention, urine,Onychauxis,H ypercholesterolemi a,Schizoaffective disorder, unspecified type ([facility] V24, [facility] V28),Anxiety,Other depression,Poor hygiene,Presbyopia ,Dry eyes Take 1 tablet (100 mg total) by mouth at bedtime. 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 V24),Paroxysmal atrial fibrillation ([facility] V24, [facility]/HCC V28),1st degree AV block,Chronic constipation,Vitam in D deficiency,Partial edentulism, unspecified edentulism class,Pancreatic mass,Nephrolithias is,Retention, urine,Onychauxis,H ypercholesterolemi a,Schizoaffective disorder, unspecified type ([facility] V24, [facility]/HCC V28),Anxiety,Other depression,Poor hygiene,Presbyopia ,Dry eyes Take 1 capsule (0.4 mg total) by mouth 1 (one) time each day with breakfast. Capsules should be taken 30 minutes following the same meal each day. 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 V24, [facility] V28),Aneurysm of ascending aorta without rupture ([facility] V24),Paroxysmal atrial fibrillation ([facility] V24, [facility] V28),1st degree AV block,Chronic constipation,Vitam in D deficiency,Partial edentulism, unspecified edentulism class,Pancreatic mass,Nephrolithias is,Retention, urine,Onychauxis,H ypercholesterolemi a,Schizoaffective disorder, unspecified type ([facility] V24, [facility] V28),Anxiety,Other depression,Poor hygiene,Presbyopia ,Dry eyes Take 1 tablet (1 g total) by mouth 3 (three) times a day with meals. 90 each 01/30/20 026 Active sodium chloride 1 gram tabletIndications: Hyponatremia Take 1 tablet (1 g total) by mouth 3 (three) times a week. 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 V24, [facility] V28),Aneurysm of ascending aorta without rupture ([facility] V24),Paroxysmal atrial fibrillation ([facility] V24, [facility] V28),1st degree AV block,Chronic constipation,Vitam in D deficiency,Partial edentulism, unspecified edentulism class,Pancreatic mass,Nephrolithias is,Retention, urine,Onychauxis,H ypercholesterolemi a,Schizoaffective disorder, unspecified type ([facility] V24, [facility] V28),Anxiety,Other depression,Poor hygiene,Presbyopia ,Dry eyes Take 1 tablet (40 mg total) by mouth at bedtime. 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 V24, [facility] V28),Aneurysm of ascending aorta without rupture ([facility] V24),Paroxysmal atrial fibrillation ([facility] V24, [facility] V28),1st degree AV block,Chronic constipation,Vitam in D deficiency,Partial edentulism, unspecified edentulism class,Pancreatic mass,Nephrolithias is,Retention, urine,Onychauxis,H ypercholesterolemi a,Schizoaffective disorder, unspecified type ([facility] V24, [facility] V28),Anxiety,Other depression,Poor hygiene,Presbyopia ,Dry eyes Take 1 tablet by mouth 2 (two) times a day with meals. 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 V24, [facility] V28),Aneurysm of ascending aorta without rupture ([facility] V24),Paroxysmal atrial fibrillation ([facility] V24, [facility] V28),1st degree AV block,Chronic constipation,Vitam in D deficiency,Partial edentulism, unspecified edentulism class,Pancreatic mass,Nephrolithias is,Retention, urine,Onychauxis,H ypercholesterolemi a,Schizoaffective disorder, unspecified type ([facility] V24, [facility] V28),Anxiety,Other depression,Poor hygiene,Presbyopia ,Dry eyes Take 1 capsule (100 mg total) by mouth 3 (three) times a day. 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 V24, [facility] V28),Aneurysm of ascending aorta without rupture ([facility] V24),Paroxysmal atrial fibrillation ([facility] V24, [facility] V28),1st degree AV block,Chronic constipation,Vitam in D deficiency,Partial edentulism, unspecified edentulism class,Pancreatic mass,Nephrolithias is,Retention, urine,Onychauxis,H ypercholesterolemi a,Schizoaffective disorder, unspecified type ([facility] V24, [facility] V28),Anxiety,Other depression,Poor hygiene,Presbyopia ,Dry eyes Take 2 capsules (200 mg total) by mouth 2 (two) times a day. 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 V24, [facility] V28),Aneurysm of ascending aorta without rupture ([facility] V24),Paroxysmal atrial fibrillation ([facility] V24, [facility] V28),1st degree AV block,Chronic constipation,Vitam in D deficiency,Partial edentulism, unspecified edentulism class,Pancreatic mass,Nephrolithias is,Retention, urine,Onychauxis,H ypercholesterolemi a,Schizoaffective disorder, unspecified type ([facility] V24, [facility] V28),Anxiety,Other depression,Poor hygiene,Presbyopia ,Dry eyes Take 1 capsule (40 mg total) by mouth 1 (one) time each day. Do not crush or chew. 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 V24, [facility] V28),Aneurysm of ascending aorta without rupture ([facility] V24),Paroxysmal atrial fibrillation ([facility] V24, [facility] V28),1st degree AV block,Chronic constipation,Vitam in D deficiency,Partial edentulism, unspecified edentulism class,Pancreatic mass,Nephrolithias is,Retention, urine,Onychauxis,H ypercholesterolemi a,Schizoaffective disorder, unspecified type ([facility] V24, [facility] V28),Anxiety,Other depression,Poor hygiene,Presbyopia ,Dry eyes Take 1 tablet (40 mg total) by mouth 1 (one) time each day. 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 V24, [facility] V28),Aneurysm of ascending aorta without rupture ([facility] V24),Paroxysmal atrial fibrillation ([facility] V24, [facility] V28),1st degree AV block,Chronic constipation,Vitam in D deficiency,Partial edentulism, unspecified edentulism class,Pancreatic mass,Nephrolithias is,Retention, urine,Onychauxis,H ypercholesterolemi a,Schizoaffective disorder, unspecified type ([facility] V24, [facility] V28),Anxiety,Other depression,Poor hygiene,Presbyopia ,Dry eyes Take 1 tablet (10 mg total) by mouth 2 (two) times a day. 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 V24, [facility] V28),Aneurysm of ascending aorta without rupture ([facility] V24),Paroxysmal atrial fibrillation ([facility] V24, [facility] V28),1st degree AV block,Chronic constipation,Vitam in D deficiency,Partial edentulism, unspecified edentulism class,Pancreatic mass,Nephrolithias is,Retention, urine,Onychauxis,H ypercholesterolemi a,Schizoaffective disorder, unspecified type ([facility] V24, [facility] V28),Anxiety,Other depression,Poor hygiene,Presbyopia ,Dry eyes Take 1 tablet by mouth 1 (one) time each day. 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 V24, [facility] V28),Aneurysm of ascending aorta without rupture ([facility] V24),Paroxysmal atrial fibrillation ([facility] V24, [facility] V28),1st degree AV block,Chronic constipation,Vitam in D deficiency,Partial edentulism, unspecified edentulism class,Pancreatic mass,Nephrolithias is,Retention, urine,Onychauxis,H ypercholesterolemi a,Schizoaffective disorder, unspecified type ([facility] V24, [facility] V28),Anxiety,Other depression,Poor hygiene,Presbyopia ,Dry eyes Take 1 tablet (10 mg total) by mouth 1 (one) time each day. 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 V24, [facility] V28),Aneurysm of ascending aorta without rupture ([facility] V24),Paroxysmal atrial fibrillation ([facility] V24, [facility] V28),1st degree AV block,Chronic constipation,Vitam in D deficiency,Partial edentulism, unspecified edentulism class,Pancreatic mass,Nephrolithias is,Retention, urine,Onychauxis,H ypercholesterolemi a,Schizoaffective disorder, unspecified type ([facility] V24, [facility] V28),Anxiety,Other depression,Poor hygiene,Presbyopia ,Dry eyes Take 1 tablet (100 mcg total) by mouth 1 (one) time each day before breakfast. 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 V24, [facility] V28),Aneurysm of ascending aorta without rupture ([facility] V24),Paroxysmal atrial fibrillation ([facility] V24, [facility] V28),1st degree AV block,Chronic constipation,Vitam in D deficiency,Partial edentulism, unspecified edentulism class,Pancreatic mass,Nephrolithias is,Retention, urine,Onychauxis,H ypercholesterolemi a,Schizoaffective disorder, unspecified type ([facility] V24, [facility] V28),Anxiety,Other depression,Poor hygiene,Presbyopia ,Dry eyes Take 2 capsules (200 mg total) by mouth at bedtime. 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 V24, [facility] V28),Aneurysm of ascending aorta without rupture ([facility] V24),Paroxysmal atrial fibrillation ([facility] V24, [facility] V28),1st degree AV block,Chronic constipation,Vitam in D deficiency,Partial edentulism, unspecified edentulism class,Pancreatic mass,Nephrolithias is,Retention, urine,Onychauxis,H ypercholesterolemi a,Schizoaffective disorder, unspecified type ([facility] V24, [facility] V28),Anxiety,Other depression,Poor hygiene,Presbyopia ,Dry eyes Take 1 capsule (100 mg total) by mouth 1 (one) time each day. 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 V24, [facility] V28),Aneurysm of ascending aorta without rupture ([facility] V24),Paroxysmal atrial fibrillation ([facility] V24, [facility] V28),1st degree AV block,Chronic constipation,Vitam in D deficiency,Partial edentulism, unspecified edentulism class,Pancreatic mass,Nephrolithias is,Retention, urine,Onychauxis,H ypercholesterolemi a,Schizoaffective disorder, unspecified type ([facility] V24, [facility] V28),Anxiety,Other depression,Poor hygiene,Presbyopia ,Dry eyes Take 140 mg by mouth every other day. 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 V24, [facility] V28),Aneurysm of ascending aorta without rupture ([facility] V24),Paroxysmal atrial fibrillation ([facility] V24, [facility] V28),1st degree AV block,Chronic constipation,Vitam in D deficiency,Partial edentulism, unspecified edentulism class,Pancreatic mass,Nephrolithias is,Retention, urine,Onychauxis,H ypercholesterolemi a,Schizoaffective disorder, unspecified type ([facility] V24, [facility] V28),Anxiety,Other depression,Poor hygiene,Presbyopia ,Dry eyes Take 1 capsule (200 mg total) by mouth 1 (one) time each day with breakfast. 30 each 01/30/20 Active cholecalciferol (VITAMIN D-3) 5,000 Units tabletIndications: Vitamin D deficiency Take 1 tablet (5,000 Units total) by mouth 1 (one) time each day. 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 V24, [facility] V28),Aneurysm of ascending aorta without rupture ([facility] V24),Paroxysmal atrial fibrillation ([facility] V24, [facility] V28),1st degree AV block,Chronic constipation,Vitam in D deficiency,Partial edentulism, unspecified edentulism class,Pancreatic mass,Nephrolithias is,Retention, urine,Onychauxis,H ypercholesterolemi a,Schizoaffective disorder, unspecified type ([facility] V24, [facility] V28),Anxiety,Other depression,Poor hygiene,Presbyopia ,Dry eyes Take 1 tablet (81 mg total) by mouth 1 (one) time each day. 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 V24, CMS/[facility] V28),Aneurysm of ascending aorta without rupture ([facility] V24),Paroxysmal atrial fibrillation (CMS/[facility] V24, CMS/[facility] V28),1st degree AV block,Chronic constipation,Vitam in D deficiency,Partial edentulism, unspecified edentulism class,Pancreatic mass,Nephrolithias is,Retention, urine,Onychauxis,H ypercholesterolemi a,Schizoaffective disorder, unspecified type ([facility] V24, [facility] V28),Anxiety,Other depression,Poor hygiene,Presbyopia ,Dry eyes Administer 1 drop into both eyes 2 (two) times a day. 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,Chroni c obstructive pulmonary disease, unspecified COPD type ([facility] V24, [facility] V28),Aneurysm of ascending aorta without rupture ([facility] V24),Paroxysmal atrial fibrillation ([facility] V24, [facility] V28),1st degree AV block,Chronic constipation,Vitam in D deficiency,Partial edentulism, unspecified edentulism class,Pancreatic mass,Nephrolithias is,Retention, urine,Onychauxis,H ypercholesterolemi a,Schizoaffective disorder, unspecified type ([facility] V24, [facility] V28),Anxiety,Other depression,Poor hygiene,Presbyopia ,Dry eyes Take 1 tablet (5 mg total) by mouth 1 (one) time each day. 30 each 11 01/30/20 026 Active meclizine (ANTIVERT) 25 mg tabletIndications: Dizziness Take 1 tablet (25 mg total) by mouth 3 (three) times a day if needed for dizziness. 84 tablet 2 03/03/20 026 Active magnesium oxide 420 mg tabletIndications: Hypomagnesemia,Deh ydration,Seizure disorder ([facility] V24, [facility] V28),Upper GI bleed Take 1 tablet by mouth 1 (one) time each day. 30 each 5 03/12/20 25 026 Active sodium chloride 1 gram tabletIndications: Hyponatremia Take 1 tablet (1 g total) by mouth 1 (one) time per week for 12 doses. 4 each 2 03/25/20 25 10/09/2 025 Active ferrous gluconate (FERGON) 324 mg (38 mg iron) tabletIndications: Other iron deficiency anemia Take 1 tablet (324 mg total) by mouth 1 (one) time each day. 30 each 2 03/25/20 25 025 Active lanolin-mineral oil (ALYSHA) lotionIndications: Xerosis of skin Apply topically at bedtime. 1 application to (affected) skin at night before bed, do not wash off. 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 V24, CMS/[facility] V28),Aneurysm of ascending aorta without rupture ([facility] V24),Paroxysmal atrial fibrillation ([facility] V24, CMS/[facility] V28),1st degree AV block,Chronic constipation,Vitam in D deficiency,Partial edentulism, unspecified edentulism class,Pancreatic mass,Nephrolithias is,Retention, urine,Onychauxis,H ypercholesterolemi a,Schizoaffective disorder, unspecified type (CMS/[facility] V24, CMS/[facility] V28),Anxiety,Other depression,Poor hygiene,Presbyopia ,Dry eyes Apply topically at bedtime. 1 application to (affected) skin at night before bed, do not wash off. 30 mL 2 01/30/20 25 Discontinu ed(Duplica te order) diclofenac (VOLTAREN) 1 % topical gel Apply 4 g topically 4 (four) times a day for 6 days. 100 g 04/07/20 25 025 Discontinu ed(Duplica te order) diclofenac (VOLTAREN) 1 % topical gelIndications:Nec k pain Apply 4 g topically 4 (four) times a day if needed (as needed for neck pain) for up to 6 days. 96 g 04/07/20 25 Active Problems Problem Noted Date Diagnosed Date Hypomagnesemia 03/12/2025 Assessment & Plan (03/12/2025 3:09 PM EDT): Mag was 1.7 (L) on 03/02/2025. She was repleated in the ED and discharged staring on PO replacement which continues and Arley states she is taking it. Will have her RTC next week for labs and CTM. 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 Arley has a PMHx of seizure activity and is on Phenytoin for preventive therapy. Her Phenytoin and Procalcitonin levels in the ED were both WNL. Will continue current medications and refer to neurology and CTM. 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 V24, [facility] V28) 01/30/2025 Assessment & Plan (01/30/2025 5:11 PM EDT): Last A1C in September 2024: 6.2% well controlled with diet, will CTM Anemia, iron deficiency 10/10/2024 Assessment & Plan (01/29/2025 12:11 PM EDT): Labs from this encounter are pending, will CTM Aneurysm of ascending aorta ([facility] V24) 2024 Overview (10/10/2024): Aneurysm, Ascending Aortic (I71.21) Assessment & Plan (01/29/2025 11:53 AM EDT): CT Angio in September 2024: Unchanged ascending thoracic aortic aneurysm measuring 4.1 cm at the level the right pulmonary artery. Chronic, stable condition will CTM Anxiety 10/10/2024 Assessment & Plan (01/29/2025 12:13 PM EDT): Arley denies any recent problems with anxiety. Chronic, stable, condition, will CTM Depression 10/10/2024 Assessment & Plan (01/29/2025 12:14 PM EDT): Chronic condition, currently stable, will continue current medications and monitor. Paroxysmal atrial fibrillation ([facility] V24, [facility] /[facility] V28) 10/10/2024 Assessment & Plan (01/29/2025 11:54 AM EDT): RRR on exam this encounter, will continue current medications and monitor. 1st degree AV block 10/10/2024 Overview (10/10/2024): Block, 1st Degree Atrioventricular Assessment & Plan (01/29/2025 11:56 AM EDT): Last 12 lead ECG in September 2024: Sinus rhythm with 1st degree A-V block Left anterior fascicular block. Arley is asymptomatic. Chronic condition, stable, will CTM Chronic constipation 10/10/2024 Assessment & Plan (01/29/2025 11:57 AM EDT): Arley denies any constipation. States last BM this am and that she has been going daily. ABD mildly distended, non-tender to palpation, + BS X 4, tympany on percussion across upper abdomen, will continue to monitor. COPD (chronic obstructive pu lmonary disease) ([facility] V24, [facility] V28) 10/10/2024 Assessment & Plan (01/29/2025 11:49 AM EDT): Chronic condition, stable. Par denies any episodes of SOB, wheezing or cough, will continue current medications and monitor. Vitamin D deficiency 10/10/2024 Assessment & Plan (01/29/2025 11:57 AM EDT): Labs from this encounter are pending, will continue to monitor. Edentulism, partial 10/10/2024 Overview (10/10/2024): Edentulous (Partially) Assessment & Plan (01/29/2025 11:58 AM EDT): Arley has upper denture in place and states she is happy with the fit. Hypercholesterolemia 10/10/2024 Assessment & Plan (01/29/2025 12:11 PM EDT): Last lipid panel in September 2024: Total Cholesterol 207^, TG 320^. Plan continue current STATIN, Cat Spring III FA and repeat lab in one year. Hyponatremia 10/10/2024 Assessment & Plan (04/19/2025 5:20 PM EDT): Chronic conditions ; last sodium level 128. Repeat labs to recheck sodium. Also check magnesium level. Continue with sodium tablets. Assessment & Plan (03/12/2025 3:07 PM EDT): Na 132 on 03/02/2024. Phlebotomy for labs attempted in clinic on this encounter 03/12/25; unsuccessful. Will have Par RTC next week for reattempt. Arley is asymptomatic and appears to be euvolemic on exam, although she has a history of chronic hyponatremia, will CTM Assessment & Plan (01/29/2025 12:16 PM EDT): She mayes demonstrate polydipsia r/t side effect from medications, chronic periodic hyponatremia. Last labs from 09/10/2024: Component Ref Range & Units 4 mo ago (09/10/24) 4 mo ago (09/09/24) 4 mo ago (09/08/24) Sodium 133 - 145 mmol/L 134 136 128 Low Labs from this encounter are pending, will continue to monitor. Assessment & Plan (12/19/2024 2:46 PM EDT): Euvolemic hyponatremia: on 12/08/2024 Arley's urine SG was 1.004, on the cusp of dilute, definitely low normal. Arley is on Phenytoin, Topiramate and olanzapine all of which can cause hyponatremia. She endorses that she drinks a lot of water and consumes at least a 2 liter bottle of diet coke per day. Her serum sodium went as low as 125 on 12/11/2024. Arley denied any symptoms. Repeat STAT labs this encounter show her serum sodium came up to 128. Plan: start Torsemide 10 mg PO QD, and monitor. Nephrolithiasis 10/10/2024 Assessment & Plan (01/29/2025 12:05 PM EDT): CT angio chest, abdomen, pelvis from 09/08/2024: Bilateral 2 to 3 mm nonobstructive renal calculi. No solid renal mass or hydronephrosis. Chronic stable, condition, will continue to monitor. Pancreatic mass 10/10/2024 Assessment & Plan (01/29/2025 12:03 PM EDT): CT ABD/Pelvis from 03/03/2024: Pancreas unremarkable. 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 Par is asymptomatic, will continue to monitor. 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 Poor hygiene 10/10/2024 Assessment & Plan (01/29/2025 12:17 PM EDT): On exam this encounter Par is clean, well dressed, appears stated age; stable, will continue to monitor. Retention, urine 10/10/2024 Assessment & Plan (01/29/2025 12:07 PM EDT): Arley declined post void bladder scan in clinic this encounter. She states she has decreased the amount of diet soda she is drinking. She endorses one 2L bottle plus a 20 oz bottle of diet soda which she chases down with water. Labs from this encounter are pending, will continue to monitor. Presbyopia 10/10/2024 Assessment & Plan (01/29/2025 12:18 PM EDT): Par endorsed needing new reading glasses and agreed to f/u with [facility] Opt[facility], will order f/u and CTM Dry eyes 10/10/2024 Assessment & Plan (01/29/2025 12:18 PM EDT): Chronic, intermittent condition, currently stable, will continue to monitor. Essential (primary) hypertension 09/03/2018 Assessment & Plan (01/29/2025 11:51 AM EDT): Normotensive in clinic this encounter, will continue current medications and monitor. Schizoaffective disorder, un specified ([facility] V24, [facility] V28) 09/03/2018 Assessment & Plan (01/29/2025 12:13 PM EDT): Participant was calm, cooperative, non-manic in clinic during this encounter; stable. She mayes demonstrate polydipsia r/t side effect from medications, chronic periodic hyponatremia. Labs from this encounter are pending, will continue to monitor. Resolved Problems Problem Noted Date Diagnosed Date Resolved Date UTI (urinary tract infection) 12/11/2024 02/11/2025 Assessment & Plan (01/29/2025 12:08 PM EDT): Par denies any dysuria, urgency, fever, chills. She endorses she [place] to the [facility] a lot. UA w/reflex to culture and random urine sodium are pending. Assessment & Plan (12/11/2024 10:31 AM EDT): Images from the original note were not included. Contains abnormal data Culture urine Order: [id number] - Reflex for Order [id number] Collected 12/08/2024 15:55 Status: Final result Visible to patient: No (inaccessible in MyChart) Specimen Information: Urine, Clean Catch 0 Result Notes Urine Culture >100,000 CFU/mL Corynebacterium species Abnormal Starting Zyvox 600 mg PO BID X 10 days, will continue to monitor. Last Labs from 12/09/23 show Kidney function is good: UN 5 - 25 mg/dL 13 33 High 19 17 Creatinine 0.50 - 1.10 mg/dL 0.78 1.17 High 0.83 0.87 eGFR >=60 mL/min/1.73m2 79 Bradycardia, sinus 10/10/2024 Sinusitis 10/10/2024 01/29/2025 Hordeolum of right lower eyelid 10/10/2024 01/29/2025 Blepharitis of right lower eyelid 10/10/2024 01/29/2025 Seizure ([facility] V24, [facility] V28) 09/10/2024 09/10/2024 Aortic aneurysm, unspecified portion of aorta, unspecified whether ruptured ([facility] V24) 09/09/2024 09/10/2024 Chest pain 09/08/2024 09/10/2024 Adjustment disorder, unspecified 09/03/2018 09/09/2024 Hypothyroidism, unspecified 09/03/2018 09/09/2024 Type 2 diabetes mellitus wit hout complications ([facility] V24, [facility] V28) 09/03/2018 09/09/2024 Gastro-esophageal reflux dis ease without esophagitis 09/03/2018 09/09/2024 Epilepsy, unspecified, not i ntractable, without status epilepticus ([facility] V24, [facility] V28) 09/03/2018 09/09/2024 Encounters Date Type Department Care Team Description 04/28/2025 11:45 AM EDT PACE External Visit [address] [phone] Functional neurological symptom disorder with attacks or seizures 04/21/2025 2:00 PM EDT PACE External Visit [address] [phone] Health care maintenance 04/20/2025 10:30 AM EDT PACE Home Care / PACE Home Visit [facility] [address] [place] [phone] Janeen Chan 04/20/2025 Telephone [facility] [address] [place] [phone] Tala Walsh RN 04/15/2025 11:30 AM EDT [facility] [address] [phone] Jenny Montana NP Cervicalgia (Primary Dx); Hyponatremia 04/13/2025 2:00 PM EDT [facility] [address] [place] [phone] Deyanira Barbosa 2025 2:00 PM EDT [facility] [address] [phone] Health maintenance examination 04/07/2025 2:50 AM EDT - 04/07/2025 1:35 PM EDT Emergency [facility] Emergency [address] [place] [phone] Neck strain, initial encounter (Primary Dx); Neck pain Discharge Disposition: Home or Self Care 04/07/2025 PACE Admissions [facility] [address] [phone] Kyra Watson RN Neck strain, initial encounter (Primary Dx); Neck pain 04/07/2025 PACE On-Call [address] [phone] Skyler Tiwari NP 03/31/2025 1:00 PM EDT Clinical Support [address] [phone] Agatha Reyna LPN 03/30/2025 10:30 AM EDT P[facility] Home Care / [facility] In [facility] Services [address] [place] [phone] Janeen Chan 03/27/2025 Telephone [facility] [address] [phone] Tala Walsh RN 03/25/2025 Telephone [facility] [address] [phone] Kenya Marks MD 03/23/2025 10:30 AM EDT P[facility] Home Care / [facility] In [facility] [address] [place] [phone] Janeen Chan 03/23/[address] [phone] Tala Walsh RN 03/19/[address] [phone] Tala Walsh RN 03/16/2025 10:30 AM EDT P[facility] Home Care / [facility] In [facility] [address] [place] [phone] Janeen Chan 03/12/2025 11:15 AM EDT Office Visit [address] [phone] Skyler Tiwari NP Hypomagnesemia (Primary Dx); Dehydration; Seizure disorder (CMS/HCC V24, CMS/HCC V28); Upper GI bleed; Hyponatremia; Functional neurological symptom disorder with attacks or seizures 03/09/2025 10:30 AM EDT [facility] Home [facility] In [facility] [address] [place] [phone] Deyanira Barbosa 03/05/2025 9:30 AM EDT PACE External Visit [address] [phone] Healthcare maintenance; Poor hygiene 03/03/2025 10:15 AM EDT Clinical Support [address] [phone] Magaly Yanes RN 03/02/2025 1:16 PM EDT - 03/02/2025 6:35 PM EDT Emergency [facility] Emergency [address] [place] [phone] Breezy Thompson MD Psychogenic nonepileptic seizure (Primary Dx); Hypomagnesemia Discharge Disposition: Home or Self Care 03/02/2025 PACE Admissions [address] [place] [phone] Kyra Watson RN Psychogenic nonepileptic seizure (Primary Dx); Hypomagnesemia 02/23/2025 10:30 AM EDT P[facility] Home Care / [facility] [place] [facility] [place] [facility] [address] [place] [phone] Janeen Chan 02/23/2025 Telephone [facility] [address] [phone] Tala Walsh RN 02/23/2025 Telephone [facility] [address] [address] Tala Walsh RN 02/16/2025 10:30 AM EDT P[facility] Home Care / [place] Home [place] [facility] [place] [facility] [address] [place] [phone] Janeen Chan 02/10/2025 Plan of Care Documentation [facility] [address] [phone] 02/02/2025 11:00 AM EDT P[facility] Home Care / [place] [place] [facility] [place] [facility] [address] [place] [phone] Radha Hough 02/02/2025 Telephone [facility] [address] [phone] Skyler Tiwari, RUSS 01/30/2025 11:30 AM EDT Clinical Support [facility] [address] [phone] Magaly Yanes, FRANK 01/29/2025 10:00 AM EDT PACE Assessment [facility] [address] [phone] Skyler Tiwari, RUSS Hyponatremia (Primary Dx); Urinary tract infection without hematuria, site unspecified; Other iron deficiency anemia; Essential (primary) hypertension; 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; Chronic obstructive pulmonary disease, unspecified COPD type ([facility] V24, [facility] V28); Aneurysm of ascending aorta without rupture ([facility] V24); Paroxysmal atrial fibrillation ([facility] V24, [facility] V28); 1st degree AV block; Chronic constipation; Vitamin D deficiency; Partial edentulism, unspecified edentulism class; Pancreatic mass; Nephrolithiasis; Retention, urine; Onychauxis; Hypercholesterolemia; Schizoaffective disorder, unspecified type ([facility] V24, [facility] V28); Anxiety; Other depression; Poor hygiene; Presbyopia; Dry eyes; 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 ([facility] V24, [facility] V28) 01/28/2025 Telephone [employer] [facility] [address] [place] [address] Skyler Tiwari NP from Last 3 Months Immunizations Name Administration Dates Next Due Influenza, Unspecified 06/10/2024 Moderna SARS-CoV-2 COVID-19, mRNA, LNP-S, preservative free 06/30/2022 Pneumococcal polysaccharide 23 valent (Pneumovax 23) 2yo and older 05/12/2024 Zoster recombinant (Shingrix) 19yo and older 10/2019,05/26/2020 Medical History Medical History Date Comments Adjustment disorder, unspecified 09/03/2018 Hypothyroidism, unspecified 09/03/2018 Type 2 diabetes mellitus wit hout complications ([facility] V24, [facility] V28) 09/03/2018 Gastro-esophageal reflux disease without esophag itis 09/03/2018 Epilepsy, unspecified, not i ntractable, without status epilepticus ([facility] V24, [facility] V28) 09/03/2018 Wears dentures History of urinary tract infection UTI (urinary tract infection) 12/11/2024 Social History Tobacco Use Types Packs/Day Years Used Date Smoking Tobacco: Never Passive Smoke Exposure: Never Smokeless Tobacco: Never Tobacco Cessation:Counseling Given: Not Answered Comments:Smoking Status: Never smoked tobacco Interpersonal Safety Answer Date Record ed Physical Abuse 09/08/2024 Verbal Abuse 09/08/2024 Comments Unknown Sex and Gender Information Value Date Recorded Sex Assigned at Female 09/08/2024 3:54 PM EST Legal Sex Female 6:14 AM EST Gender Identity Female 09/08/2024 3:54 PM EST Sexual Orientation Straight 09/08/2024 3: 54 PM EST Obstetrics History Last Filed Vital Signs Vital Sign Reading Time Taken Comments Blood Pressure 141/58 04/15/2025 5:13 PM EDT Pulse 80 04/15/2025 5:13 PM EDT Temperature 35.9 C (96.7 F) 04/15/2025 5:13 PM EDT Respiratory Rate 18 04/15/2025 5:13 PM EDT Oxygen Saturation 98% 04/15/2025 5:13 PM EDT Inhaled Oxygen Concentration - - Weight 69.4 kg (153 lb) 04/15/2025 5:13 PM EDT Height 154.9 cm (5' 1 ) 04/07/2025 3:02 AM EDT Body Mass Index 28.91 04/07/2025 3:02 AM EDT Plan of Treatment Upcoming Encounters Date Type Department Care Team (Late st Contact Info) Description 04/28/2025 1:30 PM EDT Office [place] [facility] [place] [facility] [address] [place] [phone] Skyler Tiwari NP [phone] [address] 05/04/2025 10:30 AM EDT PACE Home Care / [facility] Home [place] [facility] [place] [facility] [address] [place] [phone] Janeen Chan 05/11/2025 10:30 AM EDT P[facility] Home Care / [facility] Home [place] [facility] [place] [facility] [address] [place] [phone] Janeen Chan 05/18/2025 10:30 AM EDT P[facility] Home Care / [facility] Home [place] [facility] [place] [facility] [address] [place] [phone] Janeen Chan 05/20/2025 1:00 PM EDT Clinical Support [facility] [place] [address] [place] [address] 05/25/2025 10:30 AM EDT P[facility] Home Care / [facility] [place] [facility] [place] [facility] [address] [place] [phone] Janeen Chan 06/01/2025 10:30 AM EDT P[facility] Home Care / [facility] Home [place] [facility] [place] [facility] [address] [place] [phone] Janeen Chan 06/08/2025 10:30 AM EDT P[facility] Home Care / [facility] Home [place] [facility] [place] [facility] [address] [place] [phone] Janeen Chan 06/09/2025 2:00 PM EDT Clinical Support [facility] [place] [place] [address] [place] [phone] 06/15/2025 10:30 AM EDT P[facility] Home Care / [facility] [place] [facility] [place] [facility] [address] [place] [phone] Janeen Chan 06/22/2025 10:30 AM EDT P[facility] Home Care / [facility] Home [place] [facility] [place] [facility] [address] [place] [phone] Janeen Chan 08/11/2025 1:30 PM EST Clinical Support [facility] [place] [address] [place] [phone] 08/18/2025 2:10 PM EST Clinical Support [facility] [place] [address] [place] [phone] Health Maintenance Due Date Last Done Comments Diabetes: Annual Foot Exam 1958 Diabetes: Annual Retina Eye Exam 1960 DTaP,Tdap,and Td Vaccines (1 - Tdap) 1967 RSV Immunization Adult Patients (1 - 1-dose 75+ series) 2023 Hepatitis C Screening 10/02/2023 Osteoporosis Screening (Bone Density Screening) 10/02/2023 Social [facility] Screening 10/02/2023 COVID-19 Vaccine ( season) 2024 06/30/2022, 06/29/2021, 11/29/2020 Depression Screening 09/03/2024 Diabetes: Annual Urine Albumin-Creatinine Ratio (uACR) 01/30/2025 Diabetes: Blood Sugar Control Test (HGBA1C) 03/09/2025 09/09/2024 Influenza Vaccine (#1) 2025 , 06/15/2023, 06/30/2022, Additional history exists Pneumococcal Vaccine: 50+ Years (2 of 2 - PCV) 05/12/2025 05/12/2024, 09/23/2016 Falls Risk Assessment 09/10/2025 09/10/2024 Diabetes: Annual GFR (Glomerular Filtration Rate) 04/21/2026 04/21/2025, 04/15/2025, 03/24/2025, Additional history exists Hypertension/CHF/CAD Annual BMP Blood Test 04/21/2026 04/21/2025, 04/15/2025, 03/24/2025, Additional history exists Cholesterol Screening (Lipid Panel) 09/09/2029 09/09/2024 Zoster Vaccines Completed 08/04/2020, 05/26/2020 HIB Vaccines Aged Out No longer eligi ble based on patient's age to complete this topic HPV Vaccines Aged Out No longer eligi ble based on patient's age to complete this topic Hepatitis A Vaccines Aged Out No long er eligible based on patient's age to complete this topic Hepatitis B Vaccines Aged Out No long er eligible based on patient's age to complete this topic IPV Vaccines Aged Out No longer eligi ble based on patient's age to complete this topic MMR Vaccines Aged Out No longer eligi ble based on patient's age to complete this topic Meningococcal ACWY Vaccine Aged Out N o longer eligible based on patient's age to complete this topic Meningococcal B Vaccine Aged Out No l onger eligible based on patient's age to complete this topic RSV Immunization Patients Under 20 months Aged Out No longer eligible based on patient's age to complete this topic Varicella Vaccines Aged Out No longer eligible based on patient's age to complete this topic Procedures Procedure Name Priority Date/Time Associated Diagnosis Comments BASIC METABOLIC PANEL Routine 04/21/2025 2:30 PM EDT Adult general medical examination BASIC METABOLIC PANEL Routine 04/15/2025 12:11 PM EDT Adult general medical examination MAGNESIUM Routine 04/15/2025 12:11 PM EDT Adult general medical examination ECG 12-LEAD STAT 04/07/2025 3:19 AM EDT ECG ANNOTATED 04/07/2025 CBC WITH AUTO DIFFERENTIAL Routine 03/24/2025 1:09 PM EDT Upper GI bleed CBC AND DIFFERENTIAL Routine 03/24/2025 1:09 PM EDT Upper GI bleed MAGNESIUM Routine 03/24/2025 1:09 PM EDT Upper GI bleed PHOSPHORUS Routine 03/24/2025 1:09 PM EDT Upper GI bleed COMPREHENSIVE METABOLIC PANEL Routine 03/24/2025 1:09 PM EDT Upper GI bleed PHENYTOIN LEVEL, FREE Routine 03/24/2025 1:09 PM EDT Upper GI bleed ORTEGA URINE CULTURE TUBE STAT 03/02/2025 2:46 PM EDT URINALYSIS WITH REFLEX MICROSCOPIC AND CULTURE STAT 03/02/2025 2:46 PM EDT URINALYSIS WITH REFLEX MICROSCOPIC AND CULTURE STAT 03/02/2025 2:46 PM EDT CULTURE URINE STAT 03/02/2025 2:46 PM EDT POCT GLUCOSE BLOOD Routine 03/02/2025 2: 16 PM EDT CBC WITH AUTO DIFFERENTIAL STAT 03/02/2025 1:49 PM EDT PHENYTOIN LEVEL, TOTAL STAT 1:49 PM EDT PROLACTIN STAT 03/02/2025 1:49 PM EDT MAGNESIUM STAT 03/02/2025 1:49 PM EDT BASIC METABOLIC PANEL STAT 03/02/2025 1:49 PM EDT CBC AND DIFFERENTIAL STAT 03/02/2025 1:49 PM EDT CBC WITH AUTO DIFFERENTIAL Routine 01/29/2025 11:33 AM EDT Hyponatremia Urinary tract infection without hematuria, site unspecified Other iron deficiency anemia Essential (primary) hypertension 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 CBC AND DIFFERENTIAL Routine 01/29/2025 11:33 AM EDT Hyponatremia Urinary tract infection without hematuria, site unspecified Other iron deficiency anemia Essential (primary) hypertension 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 COMPREHENSIVE METABOLIC PANEL Routine 01/29/2025 11:33 AM EDT Hyponatremia Urinary tract infection without hematuria, site unspecified Other iron deficiency anemia Essential (primary) hypertension 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 THYROID STIMULATING HORMONE Routine 01/29/2025 11:33 AM EDT Hyponatremia Urinary tract infection without hematuria, site unspecified Other iron deficiency anemia Essential (primary) hypertension 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 THYROXINE FREE Routine 01/29/2025 11:33 AM EDT Hyponatremia Urinary tract infection without hematuria, site unspecified Other iron deficiency anemia Essential (primary) hypertension 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 VITAMIN D 25 HYDROXY Routine 01/29/2025 11:33 AM EDT Hyponatremia Urinary tract infection without hematuria, site unspecified Other iron deficiency anemia Essential (primary) hypertension 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 VITAMIN B12 Routine 01/29/2025 11:33 AM EDT Hyponatremia Urinary tract infection without hematuria, site unspecified Other iron deficiency anemia Essential (primary) hypertension 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 IRON AND TIBC Routine 01/29/2025 11:33 AM EDT Hyponatremia Urinary tract infection without hematuria, site unspecified Other iron deficiency anemia Essential (primary) hypertension 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 SODIUM, URINE, RANDOM Routine 01/29/2025 10:41 AM EDT Hyponatremia Urinary tract infection without hematuria, site unspecified URINALYSIS WITH REFLEX MICROSCOPIC AND CULTURE Routine 01/29/2025 10:41 AM EDT Hyponatremia Urinary tract infection without hematuria, site unspecified CULTURE URINE Routine 01/29/2025 10:41 AM EDT Hyponatremia Urinary tract infection without hematuria, site unspecified HEMOGLOBIN A1C Add-On 09/09/2024 2:58 AM EST LIPID PANEL WITH REFLEX TO DIRECT LDL Add-On 09/09/2024 2:58 AM EST from Last 3 Months or Most Recently Relevant to Health Maintenance Results * (ABNORMAL) Basic metabolic panel (04/21/2025 2:30 PM EDT) Only the most recent of3 resultswithin the time period is included. Sodium 125(L) 133 - 145 mmol/L [facility] Potassium 4.6 3.5 - 5.5 mmol/L LAB CHEMISTRY METHOD 04/21/2025 5:55 PM [facility] Chloride 94(L) 96 - 110 mmol/L LAB CHEMISTRY METHOD 04/21/2025 5:55 PM [facility] CO2 23 21 - 32 mmol/L LAB CHEMISTRY METHOD 04/21/2025 5:55 PM [facility] Anion Gap 8 3 - 11 LAB CHEMISTRY METHOD 04/21/2025 5:55 PM EDT [facility] Glucose 103(H) 70 - 100 mg/dL LAB CHEMISTRY METHOD 04/21/2025 5:55 PM EDT [facility] BUN 16 5 - 25 mg/dL LAB CHEMISTRY METHOD 04/21/2025 5:55 PM EDT [facility] Creatinine 0.78 0.50 - 1.10 mg/dL LAB CHEMISTRY METHOD 04/21/2025 5:55 PM EDT [facility] eGFR 78 >=60 mL/min/1. 73m2 LAB CHEMISTRY METHOD 04/21/2025 5:55 PM EDT [facility] Comment:Calculation based on the Chronic Kidney Disease Epidemiology Collaboration (CKD-EPI) equation refit without adjustment for race. BUN/Creatinine Ratio 20.5 LAB CHEMISTRY METHOD 04/21/2025 5:55 PM EDT [facility] Calcium 9.1 8.5 - 10.5 mg/dL LAB CHEMISTRY METHOD 04/21/2025 5:55 PM EDT [facility] Blood Venous blood specimen / Unknown Venipuncture / Unknown 04/21/2025 2:30 PM EDT 04/21/2025 2:30 PM EDT us Skyler Tiwari NP LAB BLOOD ORDERABLES Final Resul t [facility] [address] [place] [address], * (ABNORMAL) Magnesium (04/15/2025 12:11 PM EDT) Only the most recent of3 resultswithin the time period is included. Magnesium 1.8(L) 1.9 - 2.6 mg/dL LAB CHEMISTRY METHOD 04/15/2025 6:02 PM EDT [facility] Blood Venous blood specimen / Unknown Venipuncture / Unknown 04/15/2025 12:11 PM EDT 04/15/2025 12:11 PM EDT Jenny Montana CEMENT FINISHER LAB BLOOD ORDERABLES Final Re sult [facility] [address] [place] [address], [place] [phone] * 12-Lead ECG (04/07/2025 3:19 AM EDT) Ventricular Rate ECG 62 BPM GEMUSE Atrial Rate 62 BPM GEMUSE P-R Interval 234 ms GEMUSE QRS Duration 96 ms GEMUSE Q-T Interval 428 ms GEMUSE QTc 434 ms GEMUSE P Wave [place] 13 degrees GEMUSE R [place] -36 degrees GEMUSE T [place] 67 degrees GEMUSE ECG Interpretation Sinus rhythm with 1st degree A-V block Left axis deviation Abnormal ECG When compared with ECG of 09-SEP-2024 09:59, No significant change was found Confirmed by JOSIAH PAULSON ([id number]) on 04/07/2025 4:10:43 PM GEMUSE 04/07/2025 3:19 AM EDT 04/07/2025 4:10 PM EDT Rochelle MCGARRY ECG ORDERABLES Final Re sult Performing Organization Address City/[facility]/ZIP Co de Phone Number GEMUSE * ECG-Annotated (04/07/2025) Provider Onbase MD ECG ORDERABLES Final Result * (ABNORMAL) CBC auto differential (03/24/2025 1:09 PM EDT) Only the most recent of3 resultswithin the time period is included. WBC 7.5 4.8 - 10.8 K/[facility] LAB HEMETOLOGY METHOD 03/24/2025 5:38 PM EDT [facility] RBC 3.60(L) 3.80 - 4.80 M/[facility] LAB HEMETOLOGY METHOD 03/24/2025 5:38 PM EDT [facility] Hemoglobin 10.8(L) 11.5 - 16.0 g/dL LAB HEMETOLOGY METHOD 03/24/2025 5:38 PM EDT [facility] Hematocrit 33.0(L) 35.0 - 47.0 % LAB HEMETOLOGY METHOD 03/24/2025 5:38 PM EDT [facility] MCV 92.2 79.0 - 98.0 FL LAB HEMETOLOGY METHOD 03/24/2025 5:38 PM EDT [facility] MCH 30.2 27.0 - 32.0 pcg LAB HEMETOLOGY METHOD 03/24/2025 5:38 PM EDT [facility] MCHC 32.7 32.0 - 37.0 g/dL LAB HEMETOLOGY METHOD 03/24/2025 5:[facility] RDW 13.2 11.0 - 15.0 % LAB HEMETOLOGY METHOD 03/24/2025 5:38 PM EDT [facility] Platelets 390 130 - 400 K/mcL LAB HEMETOLOGY METHOD 03/24/2025 5:38 PM EDT [facility] MPV 9.9 7.0 - 11.0 FL LAB HEMETOLOGY METHOD 03/24/2025 5:38 PM [facility] NRBC 0.0 <1.0 % LAB HEMETOLOGY METHOD 03/24/2025 5:38 PM EDT [facility] NRBC Absolute 0.00 <0.10 K/mcL LAB HEMETOLOGY METHOD 03/24/2025 5:38 PM EDT [facility] Neutrophils Relative 48.3 % LAB HEMETOLOGY METHOD 03/24/2025 5:38 PM [facility] Lymphocytes Relative 27.9 % LAB HEMETOLOGY METHOD 03/24/2025 5:38 PM EDT [facility] Monocytes Relative 12.8 % LAB HEMETOLOGY METHOD 03/24/2025 5:38 PM EDT [facility] Eosinophils Relative 9.5 % LAB HEMETOLOGY METHOD 03/24/2025 5:38 PM EDT [facility] Basophils Relative 0.7 % LAB HEMETOLOGY METHOD 03/24/2025 5:38 PM EDT [facility] Immature Granulocytes Relative 0.8 % LAB HEMETOLOGY METHOD 03/24/2025 5:38 PM EDT [facility] Neutrophils Absolute 3.61 1.50 - 7.00 K/mcL LAB HEMETOLOGY METHOD 03/24/2025 5:38 PM EDT [facility] Lymphocytes Absolute 2.09 1.00 - 5.00 K/mcL LAB HEMETOLOGY METHOD 03/24/2025 5:38 PM EDT [facility] Monocytes Absolute 0.96 0.20 - 1.00 K/mcL LAB HEMETOLOGY METHOD 03/24/2025 5:38 PM EDT [facility] Eosinophils Absolute 0.71(H) 0.00 - 0.50 K/mcL LAB HEMETOLOGY METHOD 03/24/2025 5:38 PM EDT [facility] Basophils Absolute 0.05 0.00 - 0.20 K/mcL LAB HEMETOLOGY METHOD 03/24/2025 5:38 PM EDT [facility] Immature Granulocytes Absolute 0.06(H) 0.00 - 0.03 K/mcL LAB HEMETOLOGY METHOD 03/24/2025 5:38 PM EDT [facility] Blood Venous blood specimen / Unknown Venipuncture / Unknown 03/24/2025 1:09 PM EDT 03/24/2025 1:09 PM EDT us Kenya Marks MD LAB BLOOD ORDERABLES Final Result [facility] [address] [place] [address], [place] [phone] * Phosphorus (03/24/2025 1:09 PM EDT) Phosphorus 3.4 2.5 - 4.5 mg/dL LAB CHEMISTRY METHOD 03/24/2025 8:14 PM EDT [facility] Blood Venous blood specimen / Unknown Venipuncture / Unknown 03/24/2025 1:09 PM EDT 03/24/2025 1:09 PM EDT Kenya Marks MD LAB BLOOD ORDERABLES Final Result [facility] [address] [place] [address], [place] [phone] * Phenytoin level free (03/24/2025 1:09 PM EDT) Pathologist [facility] Phenytoin, Free (Dilantin) 1.6 0.8 - 2.0 ug/mL 03/27/2025 12:11 PM EDT [facility] Comment: Phenytoin free toxic level: >3.0 ug/mL If applicable, any drug confirmation testing reported here was developed and the performance characteristics determined by [facility]. This confirmation testing has not been cleared or approved by the FDA. The laboratory is regulated under CLIA as qualified to perform high-complexity testing. This test is used for patient testing purposes. It should not be regarded as investigational or for research. Test performed at [facility], [address] , [place] [address] Kelly Kapadia MD, PhD - Engine Assembly Supervisor Blood Venous blood specimen / Unknown Venipuncture / Unknown 03/24/2025 1:09 PM EDT 03/24/2025 1:09 PM EDT Kenya Marks MD LAB BLOOD ORDERABLES Final Result [facility] [address] [place] [address] * (ABNORMAL) Comprehensive metabolic panel (03/24/2025 1:09 PM EDT) Only the most recent of2 resultswithin the time period is included. [facility] Signature Sodium 128(L) 133 - 145 mmol/L LAB CHEMISTRY METHOD 03/24/2025 8:19 PM [facility] Potassium 4.1 3.5 - 5.5 mmol/L LAB CHEMISTRY METHOD 03/24/2025 8:19 PM [facility] Chloride 95(L) 96 - 110 mmol/L LAB CHEMISTRY METHOD 03/24/2025 8:19 PM [facility] CO2 25 21 - 32 mmol/L LAB CHEMISTRY METHOD 03/24/2025 8:19 PM [facility] Anion Gap 8 3 - 11 LAB CHEMISTRY METHOD 03/24/2025 8:19 PM [facility] Glucose 85 70 - 100 mg/dL LAB CHEMISTRY METHOD 03/24/2025 8:19 PM [facility] BUN 16 5 - 25 mg/dL LAB CHEMISTRY METHOD 03/24/2025 8:19 PM [facility] Creatinine 0.77 0.50 - 1.10 mg/dL LAB CHEMISTRY METHOD 03/24/2025 8:19 PM [facility] eGFR 80 >=60 mL/min/1. 73m2 LAB CHEMISTRY METHOD 03/24/2025 8:19 PM [facility] Comment:Calculation based on the Chronic Kidney Disease Epidemiology Collaboration (CKD-EPI) equation refit without adjustment for race. BUN/Creatinine Ratio 20.8 LAB CHEMISTRY METHOD 03/24/2025 8:19 PM [facility] Calcium 9.1 8.5 - 10.5 mg/dL LAB CHEMISTRY METHOD 03/24/2025 8:19 PM [facility] AST (SGOT) 24 10 - 42 unit/L LAB CHEMISTRY METHOD 03/24/2025 8:19 PM EDT [facility] ALT (SGPT) 27 10 - 60 unit/L LAB CHEMISTRY METHOD 03/24/2025 8:19 PM EDT [facility] Alkaline Phosphatase 54 42 - 121 unit/L LAB CHEMISTRY METHOD 03/24/2025 8:19 PM EDT [facility] Total Protein 7.6 6.0 - 8.0 g/dL LAB CHEMISTRY METHOD 03/24/2025 8:19 PM EDT [facility] Albumin 4.3 3.2 - 5.0 g/dL LAB CHEMISTRY METHOD 03/24/2025 8:19 PM EDT [facility] Total Bilirubin 0.3 0.0 - 1.4 mg/dL LAB CHEMISTRY METHOD 03/24/2025 8:19 PM EDT [facility] Blood Venous blood specimen / Unknown Venipuncture / Unknown 03/24/2025 1:09 PM EDT 03/24/2025 1:09 PM EDT us Kenya Marks MD LAB BLOOD ORDERABLES Final Result [facility] [address] [place] [address], [place] [phone] * (ABNORMAL) Urinalysis with reflex microscopic and culture (03/02/2025 2:46 PM EDT) Only the most recent of2 resultswithin the time period is included. Specific [place] Urine 1.006 1.003 - 1.030 LAB URINALYSIS - AUTOMATED METHOD 03/02/2025 3:20 PM EDT [facility] pH, Urine 7.0 5.0 - 8.0 pH LAB URINALYSIS - AUTOMATED METHOD 03/02/2025 3:20 PM [facility] Leukocytes, Urine Small(A) Negative LAB URINALYSIS - AUTOMATED METHOD 03/02/2025 3:20 PM T [facility] Nitrite, Urine Negative Negative LAB URINALYSIS - AUTOMATED METHOD 03/02/2025 3:20 PM [facility] Protein, Urine Negative <=Trace mg/dL LAB URINALYSIS - AUTOMATED METHOD 03/02/2025 3:20 PM [facility] Glucose, Urine Negative Negative mg/dL LAB URINALYSIS - AUTOMATED METHOD 03/02/2025 3:20 PM [facility] Ketones, Urine Negative Negative mg/dL LAB URINALYSIS - AUTOMATED METHOD 03/02/2025 3:20 PM [facility] Urobilinogen, Urine 0.2 0.2 - 1.0 mg/dL LAB URINALYSIS - AUTOMATED METHOD 03/02/2025 3:20 PM [facility] Bilirubin, Urine Negative Negative LAB URINALYSIS - AUTOMATED METHOD 03/02/2025 3:20 PM [facility] Blood, Urine Trace(A) Negative LAB URINALYSIS - AUTOMATED METHOD 03/02/2025 3:20 PM [facility] RBC, Urine 5.3(H) 0 - 4 /HPF LAB URINALYSIS - AUTOMATED METHOD 03/02/2025 3:20 PM [facility] WBC, Urine 5.3(H) 0 - 4 /HPF LAB URINALYSIS - AUTOMATED METHOD 03/02/2025 3:20 PM [facility] Squamous Epithelial, Urine 17 0 - 60 /LPF LAB URINALYSIS - AUTOMATED METHOD 03/02/2025 3:20 PM [facility] Bacteria, Urine Negative Negative /HPF LAB URINALYSIS - AUTOMATED METHOD 03/02/2025 3:20 PM [facility] Hyaline Casts, Urine 0.0 0 - 3 /LPF LAB URINALYSIS - AUTOMATED METHOD 03/02/2025 3:20 PM [facility] Urine Urine specimen obtained by clean catch procedure / Unknown Non-blood Collection / Unknown 03/02/2025 2:46 PM EDT 03/02/2025 3:11 PM EDT us Houston Vasquez MD LAB URINE ORDERABLES Final Re sult [facility] [address] [place] [address], [place] [phone] * Ortega urine culture tube (03/02/2025 2:46 PM EDT) Pathologist [facility] Extra Tube Hold for add-ons. 03/02/2025 5:01 PM EDT [facility] Comment:Auto resulted. Urine Urine specimen obtained by clean catch procedure / Unknown Non-blood Collection / Unknown 03/02/2025 2:46 PM EDT 03/02/2025 3:11 PM EDT us Houston Vasquez MD LAB URINE ORDERABLES Final Re sult Performing Organization Address [facility] de Phone Number [facility] [address] [place] [address], [place] [phone] * Culture urine (03/02/2025 2:46 PM EDT) Only the most recent of2 resultswithin the time period is included. Pathologist [facility] Culture, Urine 10,000-49,000 CFU/mL Mixed bacterial morphotypes present suggestive of possible contamination during collection. Suggest appropriate recollection if clinically indicated. 03/03/2025 9:41 AM EDT [facility] Urine Urine specimen obtained by clean catch procedure / Unknown Non-blood Collection / Unknown 03/02/2025 2:46 PM EDT 03/02/2025 3:20 PM EDT us Houston Vasquez MD LAB MICROBIOLOGY - GENERAL OR DERABLES Final Result Performing Organization Address City/[facility]/ZIP Co de Phone Number [facility] [address] [place] [address], [place] [phone] * (ABNORMAL) POCT Glucose, blood (03/02/2025 2:16 PM EDT) [facility] Glucose POCT 103(H) 70 - 100 mg/dL 03/02/2025 2:17 PM EDT [facility] Blood Capillary blood specimen / Unknown 03/02/2025 2:16 PM EDT 03/02/2025 2:18 PM EDT Generic Provider Poct LAB POINT OF CARE TEST DOCKED DEVICE UNSOLICITED RESULTS Final Result Performing Organization Address [facility]/ZIP Co de Phone Number [facility] [address] [place] [address], [place] [phone] * Prolactin (03/02/2025 1:49 PM EDT) [facility] Prolactin 7.60 See Comment ng/mL LAB CHEMISTRY METHOD 03/02/2025 4:02 PM EDT [facility] Comment: Prolactin Reference Ranges (ng/mL) Non 2.2 - 30.3 8.1 - 347.6 Postmenopausal 0.7 - 31.5 Blood Venous blood specimen / Unknown Venipuncture / Unknown 03/02/2025 1:49 PM EDT 03/02/2025 1:55 PM EDT Houston Vasquez MD LAB BLOOD ORDERABLES Final Re sult [facility] [address] [place] [address], [place] [phone] * Phenytoin level total (03/02/2025 1:49 PM EDT) [facility] Phenytoin Level 11.7 10.0 - 20.0 mcg/mL LAB CHEMISTRY METHOD 03/02/2025 4:02 PM EDT [facility] Blood Venous blood specimen / Unknown Venipuncture / Unknown 03/02/2025 1:49 PM EDT 03/02/2025 1:55 PM EDT Houston Vasquez MD LAB BLOOD ORDERABLES Final Re sult Performing Organization Address [facility]/ZIP Co de Phone Number [facility] [address] [place] [address], [place] [phone] * (ABNORMAL) Iron and TIBC (01/29/2025 11:33 AM EDT) Iron 58 40 - 150 mcg/dL LAB CHEMISTRY METHOD 01/29/2025 6:15 PM EDT [facility] TIBC 496(H) 250 - 450 mcg/dL LAB CHEMISTRY METHOD 01/29/2025 6:15 PM EDT [facility] Iron Saturation 12(L) 15 - 50 % LAB CHEMISTRY METHOD 01/29/2025 6:15 PM EDT [facility] Blood Venous blood specimen / Unknown Venipuncture / Unknown 01/29/2025 11:33 AM EDT 01/29/2025 11:33 AM EDT us Skyler Tiwari NP LAB BLOOD ORDERABLES Final Resul t Performing Organization Address [facility]/ZIP Mn de Phone Number [facility] [address] [place] [address], [place] [phone] * Vitamin D 25 hydroxy (01/29/2025 11:33 AM EDT) Vit D, 25-Hydroxy 40.8 30.0 - 80.0 ng/mL LAB CHEMISTRY METHOD 01/29/2025 6:56 PM EDT [facility] Blood Venous blood specimen / Unknown Venipuncture / Unknown 01/29/2025 11:33 AM EDT 01/29/2025 11:33 AM EDT us Skyler Tiwari CEMENT FINISHER LAB BLOOD ORDERABLES Final Resul t Performing Organization Address City/[facility]/ZIP Co de Phone Number [facility] [address] [place] [address], * Thyroid stimulating hormone (01/29/2025 11:33 AM EDT) TSH 1.60 0.40 - 4.00 mcIU/mL LAB CHEMISTRY METHOD 01/29/2025 6:57 PM EDT [facility] Blood Venous blood specimen / Unknown Venipuncture / Unknown 01/29/2025 11:33 AM EDT 01/29/2025 11:33 AM EDT us Skyler Tiwari NP LAB BLOOD ORDERABLES Final Resul t Performing Organization Address [facility] Co de Phone Number [facility] [address] [place] [address], * Thyroxine free (01/29/2025 11:33 AM EDT) Free T4 1.28 0.70 - 1.80 ng/dL LAB CHEMISTRY METHOD 01/29/2025 6:56 PM EDT [facility] Blood Venous blood specimen / Unknown Venipuncture / Unknown 01/29/2025 11:33 AM EDT 01/29/2025 11:33 AM EDT Skyler Tiwari CEMENT FINISHER LAB BLOOD ORDERABLES Final Resul t Performing Organization Address City/[facility]/ZIP Co de Phone Number [facility] [address] [place] [address], [place] [phone] * Vitamin B12 (01/29/2025 11:33 AM EDT) Vitamin B-12 420 250 - 900 pcg/mL LAB CHEMISTRY METHOD 01/29/2025 6:37 PM EDT [facility] Blood Venous blood specimen / Unknown Venipuncture / Unknown 01/29/2025 11:33 AM EDT 01/29/2025 11:33 AM EDT us Skyler Tiwari CEMENT FINISHER LAB BLOOD ORDERABLES Final Resul t Performing Organization Address City/[facility]/ZIP Co de Phone Number [facility] [address] [place] [address], [place] [phone] * Sodium, urine, random (01/29/2025 10:41 AM EDT) Sodium, Ur 39 mmol/L LAB CHEMISTRY METHOD 01/29/2025 6:33 PM EDT [facility] Urine Urine specimen obtained by clean catch procedure / Unknown Non-blood Collection / Unknown 01/29/2025 10:41 AM EDT 01/29/2025 10:41 AM EDT us Skyler Tiwari CEMENT FINISHER LAB URINE ORDERABLES Final Resul t Performing Organization Address City/[facility]/ZIP Co de Phone Number [facility] [address] [place] [address], [place] [phone] * (ABNORMAL) Lipid panel with reflex to direct LDL (09/09/2024 2:58 AM EST) Cholesterol 207(H) 0 - 200 mg/dL LAB CHEMISTRY METHOD 09/09/2024 10:46 AM EST [facility] Triglycerides 320(H) 0 - 150 mg/dL LAB CHEMISTRY METHOD 09/09/2024 10:46 AM EST [facility] HDL 59 >=40 mg/dL LAB CHEMISTRY METHOD 09/09/2024 10:46 AM EST [facility] LDL Calculated 84 0 - 100 mg/dL LAB CHEMISTRY METHOD 09/09/2024 10:46 AM EST [facility] VLDL Cholesterol Jesus 64 mg/dL LAB CHEMISTRY METHOD 09/09/2024 10:46 AM EST [facility] Non HDL Chol. (LDL+VLDL) 148(H) <145 mg/dL LAB CHEMISTRY METHOD 09/09/2024 10:46 AM EST [facility] Chol/HDL Ratio 3.5 0.0 - 4.4 LAB CHEMISTRY METHOD 09/09/2024 10:46 AM EST [facility] Blood Venous blood specimen / Unknown Venipuncture / Unknown 09/09/2024 2:58 AM EST 09/09/2024 3:03 AM EST Ivania MGCARRY LAB BLOOD ORDERABLES Final Result Performing Organization Address City/[facility]/ZIP Co de Phone Number [facility] [address] [place] [address], [place] [phone] * Hemoglobin A1c (09/09/2024 2:58 AM EST) Hemoglobin A1C 6.2 <6.5 % LAB CHEMISTRY METHOD 09/09/2024 2:08 PM EST [facility] Mean Bld Glu Estim. 131 mg/dL LAB CHEMISTRY METHOD 09/09/2024 2:08 PM EST [facility] Blood Venous blood specimen / Unknown Venipuncture / Unknown 09/09/2024 2:58 AM EST 09/09/2024 3:03 AM EST Ole Burch MD LAB BLOOD ORDERABLES Final Resul t [facility] [address] [place] [address], [place] [phone] from Last 3 Months or Most Recently Relevant to Health Maintenance Insurance [facility] * Guarantor: [facility] Account Type Relation to Patient Date of Phone Billing [place] [address] [facility] Advance Directives Documents on File Type Date Recorded 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 Do not modify or discontinue any currently active code status orders. * Full Code - Default Date Activated Date Inactivated Comments 09/08/2024 5:19 PM 09/10/2024 7:41 PM This is order is used when code status has not been discussed with the patient, or code status is otherwise unknown/unconfirmed To update the patient's code status, place a code status order. Do not modify or discontinue any currently active code status orders. Care Teams Regional Telecommunications Specialist Relationship Specialty Start Date End Date Skyler Tiwari NP [address] [place] [id number] PCP - General [facility] 10/17/24
--- OUTSIDE RECORDS SUMMARY | 2025-04-28 12:41 | XMS_ITS ---
Author Organization [address] [place] [address] Address [address] [place] [address] Phone Care Team Providers Care Rental Clerk Name Role Phone Skyler Tiwari NP Primary Care Provider [phone] [facility] Status:Enrolled (Active) Start date:11/01/2024 Related program episode:Program of [facility] the Elderly (Active) Case Team Name Relationship Phone Skyler Tiwari NURSERY ATTENDANT Nurse Practitioner(Responsible S taff) [phone] Continued Care and Services Coordination
--- OUTSIDE RECORDS SUMMARY | 2025-04-28 12:41 | XMS_ITS | Clinical Summary ---
Author Organization [employer] Address [address] [facility] [address] [place] [address] Care Team Providers Care Mental Health Orderly Name Role Phone Unavailable Primary Care Provider Unavailabl e Social History Tobacco Use Types Packs/Day Years Used Date Smoking Tobacco: Never Assessed Comments Unknown Sex and Gender Information Value Date Recorded Sex Assigned at Female 07/03/2022 10:24 AM EDT Legal Sex Female 10:24 AM EDT Gender Identity Not on file Sexual Orientation Not on file Plan of Treatment Health Maintenance Due Date Last Done Comments Depression Screening 1950 Alcohol/Substance Use Screening 1960 Tobacco Screening 1960 DTaP/Tdap/Td Vaccines (1 - Tdap) 1967 Pneumococcal Vaccine: 50+ Ye ars (1 of 1 - PCV) 1998 Zoster Vaccines (1 of 2) 1998 RSV Patients and Pa tients Aged 60 years or older (1 - 1-dose 75+ series) 2023 COVID-19 Vaccine (1 - 2023-2 5 season) 2024 Influenza Vaccine (#1) 2025 HIB Vaccines Aged Out No longer eligi [...] patient's age to complete this topic Meningococcal Vaccine Aged Out No anuradha freddy eligible based on patient's age to complete this topic RSV under 20 months Aged Out No longe r eligible based on patient's age to complete this topic Rotavirus Vaccines Aged Out No longer eligible based on patient's age to complete this topic
--- OUTSIDE RECORDS SUMMARY | 2025-04-28 12:41 | XMS_ITS ---
Author Organization [address] [facility] Address [address] [place] [address] Phone Care Team Providers Care Email Marketing Assistant Name Role Phone Skyler Tiwari NP Primary Care Provider [phone] Program of [facility] Care [facility] the Elderly Status:Enrolled (Active) Start date:08/03/2023 Enrollment date:08/03/2023 Related social drivers of health:Housing Instability, Financial Risk, Transportation, Social Isolation, Food Risk Related service episodes:[facility] (Active) Overview This episode will track [facility] documentation. Case Team Name Relationship Phone Skyler Tiwari SENIOR CONSUMER INSIGHTS CONSULTANT Nurse Practitioner [phone] Lila Reich Recreational Therapist Magaly Yanes RN Corporate Librarian Khalida Granados UPTWISTER TENDER Credit Or Loans Officer Rajesh Garnett OT Occupational Therapist Todd Smith RN Registered Nurse Salima Guardado RD Dietitian Charo Orellana PT Physical Therapist [facility] Branch[facility] Fisheries Technician Dewey Ruff OVERLOCK WAISTLINE JOINER Coding Quality Analyst Marga Cornelius RN Corporate Librarian Tala Walsh RN Registered Nurse Cheryle Anna Coding Quality Analyst Paco Bah Spiritual Care Jacqueline Vance PT Physical Therapist Shasta Da Silva OT Occupational Therapist Brittany CEE Coding Quality Analyst Nilson Jones PT Physical Therapist Kenya Marks MD Primary Care Provider Continued Care and Services Coordination
== END 2025-04-28 12:26 | disposition home or self-care (01) ==
LOC: HO.HSM 11:46
PROVIDERS: PCP Internal Medicine; Visit Provider Registered Nurse
DX: R56.9 Unspecified convulsions (principal)
CPT/HCPCS: 99214

== ENCOUNTER → 2025-04-28 11:45 | Outpatient (BNVA) | payer OTHER, SELFPAY | PROVIDERS: PCP Internal Medicine; Visit Provider Registered Nurse | DX: R56.9 Unspecified convulsions (principal) | CPT/HCPCS: 99212 ==